=== PATIENT | female | born 1970 | race Caucasian/White ===

== ENCOUNTER → 2017-08-24 10:10 | Outpatient (CLI) | payer MEDICAID, SELFPAY ==
[2017-08-24 13:14] LABS: Protein, Urine (Random) 79.7 mg/dL (<11.9); Protein:Creat Ratio 367 mg/g CRE (0-200)
== END ==
PROVIDERS: Family Provider Family Medicine; PCP Family Medicine; Visit Provider Internal Medicine Nephrology
DX: N39.0 Urinary tract infection, site not specified (principal)
CPT/HCPCS: 36415; 82570; 84156; 87086; 87088; 87186

== ENCOUNTER → 2017-10-17 09:04 | Outpatient (CLI) | payer MEDICAID, SELFPAY ==
--- NOTE | 2017-10-17 10:15 | BRBX_PTH ---
PATIENT: BIANKA GARRISON LOC: [facility] U#:[id number] AGE/SX: 54/F ROOM: RE10/17/[address]: Dr. Kristy Xiao MD : 1970 BED: DIS: SPEC #: [id number] RECD: 10/17/17 14:00 STATUS: ANTONIO [place] #: [id number] CARMELA: 10/17/17 10:[address]: Kristy Xiao DEPT: SURGICAL PATHOLOGY RECD BY: Miles Jamil ENTERED: 10/17/17 14:01 SP TYPE: BREAST BX OTHR DR: MD Dr. El Groves MD Tissues: Left breast, NOS Procedures: Surgery Specimen Level IV HEADER OPERATION: Left breast, stereotactic needle core biopsy PRE-OP DIAGNOSIS: Calcification left breast, upper outer TISSUE SUBMITTED: Left breast core tissue ISCHEMIC TIME: 1.5 minutes FIXATION TIME: 8 hours 45 minutes MICROSCOPIC DIAGNOSIS Left breast, upper outer calcification, stereotactic needle core biopsy: Focal adenosis and mild intraductal hyperplasia without atypia. Focal microcalcifications. Negative for malignancy. JADIEL:kolton 10/18/17 COMMENT Correlation with clinical, radiologic findings and appropriate follow up are necessary. MICROSCOPIC DESCRIPTION Slides are reviewed. GROSS DESCRIPTION Received is one container labeled with the patient's name and not further designated. The specimen consists of multiple fragments of aquino-yellow fibroadipose tissue that in aggregate measure 5 x 3 x 0.3 cm. The entire specimen is submitted in two cassettes. / JADIEL:kolton 10/17/17 TC:5 CPT: 27628
--- NOTE | 2017-11-04 07:38 | PCM.OPRPT ---
Report of Operation Date of Procedure: 10/17/17 Pre-Operative Diagnosis: abnormal left breast mammograms with findings of abnormal calcifications Post-Operative Diagnosis: same, pathology pending Surgery/Procedure Performed:: left stereotactic breast biopsy Description of Surgical Findings:: abnormal calcifications on left breast mammograms - upper outer quadrant Type of Anesthesia:: Local - 1% xylocaine Specimen's removed: left breast tissue Estimated Blood Loss (mL): minimal Fluids Replaced: none Description of Procedure: After informed consent was given, the patient was brought into the breast biopsy suite. Appropriate time out protocol was followed. She was then placed in the prone position on the stereotactic biopsy table. The patients left breast was then placed at the opening at the head of the table. A sap grc security compression mammogram was then obtained in the CC view. The suspicious radiological lesion was then identified. Stereo pictures of the lesion were then taken for XYZ coordinates. The Mammotome biopsy stylus was then positioned where it would be entering into the patients breast. The skin at this site was then cleansed with a surgical skin preparation. The skin and subcutaneous tissues at this site were then infiltrated with 1% xylocaine. A small skin incision was made with an 11 blade scalpel. The biopsy stylus was then positioned into the patients breast at the proper coordinates of depth. Using the Mammotome vacuum-assist device, several core samples of breast tissue were obtained. A specimen mammogram was the obtained and revealed that the calcifications were within the specimen. A hemostatic marker clip was then placed into the biopsy cavity and a sap grc security film revealed that it was properly deployed. The patient was then placed in the supine position and pressure was applied to the breast until no active bleeding was noted. Steristrips were applied to reapproximate the skin. A unilateral mammogram in the CC and MLO view were then taken which revealed that the marker clip was in the same area as the previous suspicious lesion. The patient tolerated the procedure well and was discharged from the breast biopsy suite in good condition. - Complications none noted
--- NOTE | 2017-11-04 07:42 | OP.PCM_ITS ---
Report of Operation Date of Procedure: 10/17/17 Pre-Operative Diagnosis: abnormal left breast mammograms with findings of abnormal calcifications Post-Operative Diagnosis: same, pathology pending Surgery/Procedure Performed:: left stereotactic breast biopsy Description of Surgical Findings:: abnormal calcifications on left breast mammograms - upper outer quadrant Type of Anesthesia:: Local - 1% xylocaine Specimen's removed: left breast tissue Estimated Blood Loss (mL): minimal Fluids Replaced: none Description of Procedure: After informed consent was given, the patient was brought into the breast biopsy suite. Appropriate time out protocol was followed. She was then placed in the prone position on the stereotactic biopsy table. The patient?s left breast was then placed at the opening at the head of the table. A scouts compression mammogram was then obtained in the CC view. The suspicious radiological lesion was then identified. Stereo pictures of the lesion were then taken for XYZ coordinates. The Mammotome biopsy stylus was then positioned where it would be entering into the patient?s breast. The skin at this site was then cleansed with a surgical skin preparation. The skin and subcutaneous tissues at this site were then infiltrated with 1% xylocaine. A small skin incision was made with an 11 blade scalpel. The biopsy stylus was then positioned into the patient?s breast at the proper coordinates of depth. Using the Mammotome vacuum-assist device, several core samples of breast tissue were obtained. A specimen mammogram was the obtained and revealed that the calcifications were within the specimen. A hemostatic marker clip was then placed into the biopsy cavity and a scouts film revealed that it was properly deployed. The patient was then placed in the supine position and pressure was applied to the breast until no active bleeding was noted. Steristrips were applied to reapproximate the skin. A unilateral mammogram in the CC and MLO view were then taken which revealed that the marker clip was in the same area as the previous suspicious lesion. The patient tolerated the procedure well and was discharged from the breast biopsy suite in good condition. - Complications none noted
== END ==
PROVIDERS: Family Provider Family Medicine; PCP Family Medicine; Visit Provider Surgery
DX: R92.0 Mammographic microcalcification found on diagnostic imaging of breast (principal); N60.22 Fibroadenosis of left breast; J44.9 Chronic obstructive pulmonary disease, unspecified; F32.9 Major depressive disorder, single episode, unspecified; K21.9 Gastro-esophageal reflux disease without esophagitis; G47.33 Obstructive sleep apnea (adult) (pediatric); E11.9 Type 2 diabetes mellitus without complications; E55.9 Vitamin D deficiency, unspecified; Z87.891 Personal history of nicotine dependence
CPT/HCPCS: 19081; 88305; J7050; A4648

== ENCOUNTER 2017-11-23 14:00 | Observation (INO) | payer MEDICAID, SELFPAY ==
--- NOTE | 2017-11-22 | MISC_PTH ---
PATIENT: BIANKA GARRISON LOC: [facility] U#:[id number] AGE/SX: 47/F ROOM: [facility] RE11/23/[address]: Dr. Rex Mckeon MD : 1970 BED: 1 DIS: 11/24/2017 SPEC #: [id number] RECD: 11/22/17 11:41 STATUS: ANTONIO RE[place] #: [id number] CARMELA: 11/22/17 00:[address]: Rex Mckeon DEPT: SURGICAL PATHOLOGY RECD BY: Miles Jamil ENTERED: 11/24/17 11:42 SP TYPE: MISC MARIYA DR: Dr. Malachi Bello MD Tissues: PANNUS Procedures: Surgery Specimen Level III HEADER OPERATION: Abdominal panniculectomy; repair of ventral hernia PRE-OP DIAGNOSIS: Abdominal panniculus with panniculitis intertrigo, ventral hernia TISSUE SUBMITTED: Abdominal panniculus MICROSCOPIC DIAGNOSIS Abdominal panniculus, panniculectomy: Skin with underlying adipose tissue with focal mild chronic inflammation and hyperkeratosis, clinically panniculitis with intertrigo (3200 gm) JADIEL:kolton 11/25/17 MICROSCOPIC DESCRIPTION Slides are reviewed. GROSS DESCRIPTION Received in fixative is one container labeled with the patient's name and designated abdominal panniculus. The specimen consists of two pieces of skin with underlying adipose tissue measuring 30 x 21 x 4 cm and 31 x 24 x 5 cm. Also received are two pieces of adipose tissue that in aggregate measure 8 x 5 x 3 cm. Sections do not reveal any mass lesions. [place] Sander sections are submitted in four cassettes. / JADIEL:kolton 11/22/17 TC:3 CPT: 37495
--- NOTE | 2017-11-23 14:00 | DT_ITS ---
This patient was seen during an EMR downtime November 21, 2017 - November 28, 2017. This patient may have a combination of paper and electronic documentation or all paper documentation. All documentation is viewable within the e-chart portion of [employer] for each patient visit.
[2017-11-26 04:45] LABS: Anion Gap 7 (5-15); BUN 14 mg/dL (7-18); BUN/Creat Ratio 20.6 RATIO (10-20); Calcium,Total 8.3 mg/dL (8.5-10.1); Chloride 112 mmol/L (98-107); Creatinine, Serum 0.68 mg/dL (0.55-1.02); EST Glomerular Filtration Rate 98 mL/min (>60); Est Glom Filt Rate - Afr Amer 119 mL/min (>60); Glucose 94 mg/dL (74-106); Hemoglobin A1c 5.9 % (4.2-6.3); Potassium 3.9 mmol/L (3.5-5.1); Sodium Level 144 mmol/L (136-145)
[2017-11-26 07:31] LABS: Anion Gap 9 (5-15); BUN 10 mg/dL (7-18); BUN/Creat Ratio 15.6 RATIO (10-20); Calcium,Total 8.2 mg/dL (8.5-10.1); Chloride 104 mmol/L (98-107); Creatinine, Serum 0.64 mg/dL (0.55-1.02); EST Glomerular Filtration Rate 105 mL/min (>60); Est Glom Filt Rate - Afr Amer 127 mL/min (>60); Glucose 111 mg/dL (74-106); Potassium 3.8 mmol/L (3.5-5.1); Prealbumin 15.3 mg/dL (20.0-40.0); Sodium Level 141 mmol/L (136-145)
[2017-11-26 10:42] LABS: Hematocrit 28.2 % (37-47); Hemoglobin 12.9 g/dl (12.0-15.0); Mean Corp Hgb Conc 33.8 g/gl (32-36); Mean Corpuscular Hgb 27.6 pg (27.0-32.0); Mean Corpuscular Volume 81.8 fL (81-99); Mean Platelet Vol. 10.3 fl (6.2-12.0); Platelet Count 250 K/mm3 (150-450); RBC Distribution Width CV 13.7 % (11.6-14.6); RBC Distribution Width SD 41.1 fl (35.1-43.9); Red Blood Count 4.67 M/mm3 (4.2-5.4); Scan Indicated on CBC? Y/N NO; White Blood Count 13.7 K/mm3 (4.4-11.0)
[2017-11-28 15:14] LABS: Hemoglobin 13.8 g/dl (12.0-15.0); Mean Corp Hgb Conc 33.7 g/gl (32-36); Mean Corpuscular Hgb 27.5 pg (27.0-32.0); Mean Corpuscular Volume 81.8 fL (81-99); Mean Platelet Vol. 10.3 fl (6.2-12.0); Platelet Count 284 K/mm3 (150-450); RBC Distribution Width CV 13.7 % (11.6-14.6); RBC Distribution Width SD 40.2 fl (35.1-43.9); Red Blood Count 5.01 M/mm3 (4.2-5.4); Scan Indicated on CBC? Y/N NO; White Blood Count 7.4 K/mm3 (4.4-11.0)
== END 2017-11-24 12:08 | disposition home or self-care (01) ==
LOC: SDC 16:39 → MS2 16:49
PROVIDERS: Anesthesiology; Admitting Provider Surgery; Family Provider Family Medicine; PCP Family Medicine; Visit Provider Surgery
PROC: 0JB80ZZ Excision of Abdomen Subcutaneous Tissue and Fascia, Open Approach (ICD-10-PCS; CPT 15830; principal; 2017-11-22 07:45)
DX: E65 Localized adiposity (principal); M79.3 Panniculitis, unspecified; L30.4 Erythema intertrigo; K43.9 Ventral hernia without obstruction or gangrene; I10 Essential (primary) hypertension; J44.9 Chronic obstructive pulmonary disease, unspecified; Z87.891 Personal history of nicotine dependence; Z85.528 Personal history of other malignant neoplasm of kidney
CPT/HCPCS: 11005; 11008; 15830; 49568; 36415; 80048; 83036; 84134; 85027; 88304; 96365; 96366; 96375; 96376; 99218; J7120; G0378; G0379; J2405

== ENCOUNTER 2017-12-11 12:47 | Emergency (ER) | payer MEDICAID, SELFPAY ==
[2017-12-11 12:49] VITALS: BP 130/83; PULSE 92; RESP 17; TEMP 37.2; O2SAT 98; BMI 44.4
--- NOTE | 2017-12-11 13:23 | ED.VISSUMM ---
- ER Visit Summary Date of Service: 12/11/17 Chief Complaint: Dressing change History of Present Illness: The patient is a 47 F who presents for dressing change. Patient states the wound VAC on her abdominal wound began coming off last night. Patient called her wound care physician who told her to come to the emergency department and have a wet-to-dry dressing placed. Patient states her wound care nurse will be able to reattach the wound VAC tomorrow. Patient denies any fevers or chills. Patient does admit to some drainage from the wound. Patient denies any nausea or vomiting. Patient states she has also noted some bleeding from the wound. She denies any other symptoms. Physical Examination: Vital signs are stable. Patient is afebrile. Patient is in no acute distress. Abdomen is soft. Bowel sounds are normal. There is no tenderness noted. There is some malodorous drainage noted from the abdominal wound. There is no erythema or warmth. The remaining physical exam is within normal limits. Emergency Department Course and Treatment: The wound VAC was removed. Wet-to-dry dressing was placed. Patient was instructed to follow-up with her wound care physician and nurse as scheduled. Patient understood and was agreeable with the plan. All questions were answered. Disposition: Discharged home Impression: Chronic abdominal wound This note was generated with [employer] dictation software. It may contain incorrect words, spelling, and punctuation that were not noted in review of the chart prior to signing ED Disposition - Plan for ED Patient: Disposition: Home or Assisted Living Chief Complaint: Wound Check Diagnosis: Open abdominal wall wound Instructions: ED Wound Check Post Op No Infec Referrals: Malachi Bello MD [Primary Care Provider] -
--- NOTE | 2017-12-11 13:32 | ED.DCSUM_ITS ---
- ER Visit Summary Date of Service: 12/11/17 Chief Complaint: Dressing change History of Present Illness: The patient is a 47 F who presents for dressing change. Patient states the wound VAC on her abdominal wound began coming off last night. Patient called her wound care physician who told her to come to the emergency department and have a wet-to-dry dressing placed. Patient states her wound care nurse will be able to reattach the wound VAC tomorrow. Patient denies any fevers or chills. Patient does admit to some drainage from the wound. Patient denies any nausea or vomiting. Patient states she has also noted some bleeding from the wound. She denies any other symptoms. Physical Examination: Vital signs are stable. Patient is afebrile. Patient is in no acute distress. Abdomen is soft. Bowel sounds are normal. There is no tenderness noted. There is some malodorous drainage noted from the abdominal wound. There is no erythema or warmth. The remaining physical exam is within normal limits. Emergency Department Course and Treatment: The wound VAC was removed. Wet-to- dry dressing was placed. Patient was instructed to follow-up with her wound care physician and nurse as scheduled. Patient understood and was agreeable with the plan. All questions were answered. Disposition: Discharged home Impression: Chronic abdominal wound This note was generated with [employer] dictation software. It may contain incorrect words, spelling, and punctuation that were not noted in review of the chart prior to signing ED Disposition - Plan for ED Patient: Disposition: Home or Assisted Living Chief Complaint: Wound Check Diagnosis: Open abdominal wall wound Instructions: ED Wound Check Post Op No Infec Referrals: Malachi Bello MD [Primary Care Provider] -
[2017-12-11 13:42] VITALS: PULSE 82; RESP 16; O2SAT 99
== END 2017-12-11 13:52 | disposition home or self-care (01) ==
PROVIDERS: Emergency Provider Emergency Medicine; Family Provider Family Medicine; PCP Family Medicine
DX: S31.109D Unspecified open wound of abdominal wall, unspecified quadrant without penetration into peritoneal cavity, subsequent encounter (principal); E78.00 Pure hypercholesterolemia, unspecified; Z79.51 Long term (current) use of inhaled steroids; Z79.891 Long term (current) use of opiate analgesic; Z79.899 Other long term (current) drug therapy; X58.XXXD Exposure to other specified factors, subsequent encounter
CPT/HCPCS: 99283

== ENCOUNTER 2017-12-19 08:46 | Outpatient (RCR) | payer MEDICAID, SELFPAY ==
[2017-12-19 09:39] VITALS: BP 116/71; PULSE 91; RESP 16; TEMP 36; BMI 41.5
--- NOTE | 2017-12-19 23:47 | PCM.WC.PN ---
Type of Wound Date of Service: 12/19/17 Chief Complaint: Open surgical wound lower anterior abdominal wall. History of Wound: Surgery 11/22/17 - 1. Abdominal panniculectomy. 2. Repair of recurrent ventral hernia. Wound care - Normal saline wet to dry. Had trouble with the VAC. Encourage nutritional supplementation with protein to help the healing process. Today she denies any fever. Her appetite is good. Progress of Wound: Improved. - Physical Exam Vital Signs Temp Pulse Resp BP 96.8 F L 91 16 116/71 12/19/17 09:39 12/19/17 09:39 12/19/17 09:39 12/19/17 09:39 Wound Measurements and Assessment WC - Nurse 1 - General Ulcer Measurement Start: 12/19/17 09:04 Freq: Status: Active Protocol: Activity Type Activity Date Activity User E-Sign Co-Sign Detail Recorded Client Recorded Date Recorded By Document 12/19/17 09:29 [id number] 12/19/17 09:32 CS 12/19/17 09:29 Wound Center Nurse 1 [Ulcer Assessment] #1Abdominal panniculectomy -Combined with other wound No -Current Size (cm) - Length 8 -Current Size (cm) - Width 56.2 -Current Size (cm) - Depth 1.7 -Total Square Cm 449.6 -Date of Last Picture (Recall this 12/19/17 field) -Photo Taken Yes -Epithelialization None Present -Tunneling Yes -Tunneling Position (O'clock) 11 -Tunneling Distance (cm) 1.3 -Exudate Amt Medium (34-66%) -Exudate Type Yellow/Green -Wound Margin Distinct, Outline Attached -Granulation Amt Medium (34-66%) -Granulation Quality [place] Red -Slough/Fibrin Yes -Necrosis Amt Medium (34-66%) -Necrotic Tissue Type Adherent Slough -Structure Exposed None/Limited to Skin Breakdown -Texture (Sherley-wound Skin Appearance) Assessed Scarring -Moisture (Sherley-wound Skin Appearance No Abnormality ) Assessed -Color (Sherley-wound Skin Appearance) No Abnormality Assessed -Temperature (Sherley-wound Skin No Abnormality Appearance) (Pt Warm) -Tenderness on Palpation (Sherley-wound Yes Skin Appearance) -Ulcer Cleansing Wound Cleanser -Foul Odor after Cleansing No -Anesthetic Used 4% Lidocaine Solution WC - Nurse 2 - General Ulcer CM Notes Start: 12/19/17 09:04 Freq: Status: Active Protocol: Activity Type Activity Date Activity User E-Sign Co-Sign Detail Recorded Client Recorded Date Recorded By Document 12/19/17 09:40 [id number] 12/19/17 09:41 12/19/17 09:40 Wound Center Nurse 2 [Procedure/Treatment] -Time 09:40 -Correct Patient Yes -Correct Side, Site, Position Yes -Correct Procedure Yes -Procedure Performed Yes -Type of Procedure Debridement -Clinical Debridement Subcutaneous -Post Debridement Size (cm) - Length 8.1 -Post Debridement Size (cm) - Width 56.2 -Post Debridement Size (cm) - Depth 1.8 -Total Square Cm 455.22 -Wound/Ulcer Outcome Not Healed -Ulcer Cleansing Rinsed/ Irrigated with Saline -Foul Odor after Cleansing No -Bioengineered Tissue No -Bleeding Controlled with Pressure -Treatment Response Procedure Tolerated Well [See Physician Procedure note for Specifics] Pain Scale: 0-10 Numeric [Pain] -Is Patient Pain Free? Yes Debridement Note Post-Debridement Measurements/Treatment - Nurse 2 - General Ulcer CM Notes Start: 12/19/17 09:04 Freq: Status: Active Protocol: Activity Type Activity Date Activity User E-Sign Co-Sign Detail Recorded Client Recorded Date Recorded By Document 12/19/17 09:40 [id number] 12/19/17 09:41 12/19/17 09:40 Wound Center Nurse 2 #1Abdominal panniculectomy -Time 09:40 -Correct Patient Yes -Correct Side, Site, Position Yes -Correct Procedure Yes -Procedure Performed Yes -Type of Procedure Debridement -Clinical Debridement Subcutaneous -Post Debridement Size (cm) - Length 8.1 -Post Debridement Size (cm) - Width 56.2 -Post Debridement Size (cm) - Depth 1.8 -Total Square Cm 455.22 -Wound/Ulcer Outcome Not Healed -Ulcer Cleansing Rinsed/ Irrigated with Saline -Foul Odor after Cleansing No -Bioengineered Tissue No -Bleeding Controlled with Pressure -Treatment Response Procedure Tolerated Well Pain Scale: 0-10 Numeric Is Patient Pain Free? Yes Wound debrided: #1 Lower anterior abdominal wall. Laterality: Not Applicable Wound Grade/Stage: 3. Type of Debridement: Excisional debridement Anesthesia Used: 4% Lidocaine Solution Depth: Down to and including healthy tissue, in the subcutaneous layer Percentage of wound debrided: 100 Instrument Used: 7mm curette Tissue Removed: subcutaneous tissue. Severity: Fat Layer Exposed Amount of bleeding with debridement: Mild Bleeding Controlled with: Pressure Patient tolerated procedure well Assessment/Plan Assessment: 1. Open surgical wound lower anterior abdominal wall. 2. Abdominal panniculus with panniculitis. 3. Abdominal wall skin crease intertrigo. 4. Recurrent ventral hernia. Plan: Continue normal saline wet to dry dressing changes. She has been having trouble maintaining a seal with the VAC. Will send the VAC back. Discussed with the patient about further operative debridement and secondary wound closure. Will schedule the surgery in the next couple of weeks. Patient was informed of the risks and complications of the procedure including alternatives to surgery. These were discussed with her personally. She voices understanding and wishes to proceed. Surgery will be done under general anesthesia on an outpatient basis. Renewed her Percocet for pain (30 tabs). Followup 3 weeks.
== END 2018-01-17 23:59 ==
LOC: WC 08:46
PROVIDERS: Family Provider Family Medicine; PCP Family Medicine; Visit Provider Surgery
DX: M79.3 Panniculitis, unspecified (principal); K43.2 Incisional hernia without obstruction or gangrene; L30.4 Erythema intertrigo; T81.89XA Other complications of procedures, not elsewhere classified, initial encounter; Y83.9 Surgical procedure, unspecified as the cause of abnormal reaction of the patient, or of later complication, without mention of misadventure at the time of the procedure
CPT/HCPCS: 99213; G0463

== ENCOUNTER 2018-01-03 07:06 | Day surgery (SDC) | payer MEDICAID, SELFPAY ==
--- NOTE | 2018-01-02 18:48 | HP.PCM_ITS ---
History and Physical Date of Admission: 01/03/18 History of Present Illness: 47 year old woman presents with a large abdominal panniculus with associated panniculitis from recent weight loss of about 190 lbs. Her weight went from approximately 446 lbs down to her current weight of 256 lbs. Because of this massive weight loss, she developed redundant skin on her abdominal wall leaving an apron of tissue that overhangs over her pubic area. Therefore, she also complains of abdominal wall skin crease intertrigo for which she uses powders for relief. She denies any nausea, vomiting or bloating. She did have a ventral hernia repair in 2001 that required mesh. She denies any fever. She underwent an abdominal panniculectomy and repair of a recurrent ventral hernia on 11/22/17. Postop wound care was with the VAC. She showed good healing but had issues with the VAC with suction issues and persistent pain. She presents today for further operative debridement and secondary wound closure. Past Medical History: Allergies, seasonal Anemia Arthritis Asthma Back problems Bone fractures UTI Carpal tunnel syndrome Diabetes, Emotional problems: depresson and anxiety since lost her daughter 16 years ago COPD Gallstones Headaches HTN High cholesterol High trig Hives IBS Nueropathy Pneumonia Polycystic ovary GERD benign right breast tumor right axillary hidradenitis recurrent ventral hernia abdominal panniculus with panniculitis abdominal wall skin crease intertrigo kidney cancer Past Surgical History: Gallbladder -2000 [id number] Tubal ligation-1996 ventral hernia repair and mesh-2001 Right breast needle core biopsy 03/06/14 - fibroadenoma/benign phyllodes tumor Lumpectomy, 03/03 excision right axillary hidradenitis - 2009 kidney resection - 2016 abdominal panniculectomy and repair of ventral hernia - 11/22/17 MEDICATIONS Ventolin. Prempro. Losartan-HCTZ. Desyrel. Effexor. Calan. Trileptal. ALLERGIES Fish Containing Products. Morphine. Lisinopril. Family History Summary: Reviewed history Last on 12/08/2015 and no changes required:12/22/2016 Father (biol.) - Has Family History of Arthritis - Entered On: 11/23/2013 Father (biol.) - Has Family History of Asthma - Entered On: 11/23/2013 Son (biol.) - Has Family History of Asthma - Entered On: 11/23/2013 PGM - Has Family History of Other Cancer - ovarian cancer with mets age 56 - Entered On: 11/23/2013 Mother (biol.) - Has Family History of Breast Cancer - early age 40s - Entered On: 11/23/2013 Aunt - Has Family History of Breast Cancer - 3 maternal aunt 3 paternal aunts - Entered On: 11/23/2013 Mother (biol.) - Has Family History of Diabetes - type II - Entered On: 11/23/2013 Father (biol.) - Has Family History of Diabetes - type II - Entered On: 11/23/2013 MGF - Has Family History of Diabetes - Entered On: 11/23/2013 MGM - Has Family History of Diabetes - Entered On: 11/23/2013 Father (biol.) - Has Family History of Heart Disease - CAD, s/p CABG - Entered On: 11/23/2013 Mother (biol.) - Has Family History of Ovarian Cancer - Entered On: 02/03/2015 General Comments - FH: positive for breast cancer. negative for skin cancer. FH Asthma: father, son FH Arthritis FH Cancer: PGM: ovarian cancer with met, at age 55, Maunts x 3 and Paunts x 3 and Mother: breast cancer (mother: at age early 40s, aunts in 50s) denied fhx of colon cancer, FH Diabetes: type II: mother, father, MGF and MGM FH Heart disease: father: CAD, s/p CABG FH High cholesterol FH Hormone problems FH Kidney stones FH Kidney disease FH Liver disease FH Lupus or other autoimmune FH Osteoporosis FH stroke FH Thyroid cancer FH TB FH ulcer disease Father: sepsis at age 58, copd No colon cancer known in family 3 aunts with breast cancer? Social History: Reviewed history from 03/13/2015 and no changes required: Patient is a former smoker. quit smoking 2005 Alcohol Use - no Drug Use - no does not use aspirin. does not use ibuprofen. Passive smoke exposure - yes HIV/High Risk - no Regular Exercise - yes Was in [employer] Unemployed. Smoking History: Patient is a former smoker. Patient has been counseled to quit. Review of Systems General Complains of weight loss. Denies fever and fatigue. had weight loss of about 190 lbs. Eyes Denies eye pain. ENT Complains of nasal congestion. Denies sore throat. CV Complains of chest pain or discomfort. Denies fatigue, lightheadedness, shortness of breath with exertion and palpitations. Resp Complains of cough. . Denies dyspnea and wheezing. . GI Denies nausea, vomiting, diarrhea and constipation. Complains of menorrhagia, abnormal vaginal bleeding and pelvic pain. . Denies blood in urine and urinary frequency. MS Complains of back pain and arthritis. Denies joint pain, stiffness and muscle weakness. Derm Denies suspicious lesions and skin cancer. has abdominal wall skin crease intertrigo. Neuro Complains of headaches. Denies weakness and paresthesias. . Psych Complains of anxiety and depression. Endo Denies excessive urination and excessive thirst. Heme Denies bleeding and abnormal bruising. Allergy Complains of hives or rash and seasonal allergies. Physical Exam General: well developed, well nourished, in no acute distress. Head: normocephalic and atraumatic. Eyes: PERRL/EOM intact, conjunctiva and sclera clear with out nystagmus. Mouth: throat injected and post nasal drip. Neck: no masses, thyromegaly, or abnormal cervical nodes. Lungs: clear bilaterally to auscultation. Heart: non-displaced PMI, chest non-tender; regular rate and rhythm, S1, S2 without murmurs, rubs, or gallops Abdomen: Lower anterior abdominal wall wound from previous panniculectomy. Good granulation tissue is present. No evidence of infection. Tender to palpation. Msk: has lumbar back sof tissue tenderness. No bony tenderness. Pulses: pulses normal in all 4 extremities. Extremities: no clubbing, cyanosis, edema, or deformity noted with normal full range of motion of all joints. Neurologic: no focal deficits, cranial nerves II-XII grossly intact with normal sensation, reflexes, coordination, muscle strength and tone. Skin: no rashes. Cervical Nodes: no significant adenopathy. Axillary Nodes: no axillary adenopathy palpated Inguinal Nodes: no significant adenopathy. Psych: alert and cooperative; normal mood and affect; normal attention span and concentration. Assessment and Plan 1. Nonhealing ulcer lower anterior abdominal wall from previous panniculectomy. 2. Abdominal panniculus with panniculitis. 3. Recent massive weight loss. 4. Obesity. 5. Abdominal wall skin crease intertrigo. 6. Former smoker. Patient h as persistent pain with her abdominal wall healing ulcer. The VAC was stopped because of suction issues and pain. She is currently on Silver dressing changes. Recommended to the patient to proceed with further operative debridement and complex secondary wound closure. Will send tissue to Pathology for analysis and to Microbiology for culture. Will have drains in for several days and have an abdominal binder. Will place a VAC over the incision to help with drainage during healing. Patient wants to proceed with wound closure. Patient was informed of the risks and complications of the procedure including alternatives to surgery. These were discussed with the patient personally. Patient voices understanding and wishes to proceed. Some of the risks and complications were included in a form from the [place] [employer]. Surgery will be done under general anesthesia on an outpatient basis.
[2018-01-03] VITALS (9 sets, daily range): BP systolic 99–125; BP diastolic 58–85; PULSE 74–88; RESP 15–18; TEMP 36.4–36.6; O2SAT 93–100; BMI 43.2
--- NOTE | 2018-01-03 08:00 | UL_PTH ---
PATIENT: BIANKA GARRISON LOC: [facility] [place][id number] AGE/SX: 47/F ROOM: RE01/03/[address]: Dr. Rex Mckeon MD : 1970 BED: DIS: 01/04/2018 SPEC #: [id number] RECD: 01/03/18 10:51 STATUS: ANTONIO REIrlanda #: [id number] CARMELA: 01/03/18 08:[address]: Rex Mckeon DEPT: SURGICAL PATHOLOGY RECD BY: Travon Andrea ENTERED: 01/03/18 13:37 SP TYPE: ULCER OTHR DR: Dr. Malachi Bello MD Tissues: Abdomen, NOS Procedures: Surgery Specimen Level III HEADER OPERATION: Surgical preparation lower anterior abdominal wall PRE-OP DIAGNOSIS: Nonhealing ulcer lower anterior abdominal wall from previous panniculectomy; abdominal panniculus with panniculitis; recent mass weight loss; obesity; abdominal wall skin crease intertrigo TISSUE SUBMITTED: Lower anterior abdominal wall nonhealing ulcer MICROSCOPIC DIAGNOSIS Lower anterior abdominal wall nonhealing ulcer: Pieces of skin with underlying tissue with ulceration, acute and chronic inflammation, granulation tissue reaction, fat necrosis and foreign body giant cell reaction. JADIEL:kolton 01/04/18 MICROSCOPIC DESCRIPTION Slides are reviewed. GROSS DESCRIPTION Received in fixative is one container labeled with the patient's name and designated left anterior abdominal wall. The specimen consists of ten irregular fragments of aquino-yellow fibrofatty tissue ranging in size from 2 cm to 38 cm in greatest dimension. The largest fragment consists of skin and soft tissue with a centrally situated ulcer. Serial sections do not reveal mass lesions. Wafer Cleaner sections are submitted in three cassettes. / AM:kolton 01/03/18 TC:2 CPT: 96214
[2018-01-03 08:06] LABS: Bedside Glucose 90 mg/dL (70-110)
[2018-01-03] MEDS: Cefazolin 2 GM in 0.9% Normal Saline 100 ML IV (08:14)
--- NOTE | 2018-01-03 10:20 | OP.PN_ITS ---
Immediate Post-Op Note Date of Procedure: 01/03/18 Primary Surgeon/Physician: Rex Mckeon associate professor of music: Dori Lopez. associate professor of music: Liliana Wallace. Pre-Operative Diagnosis: 1. Nonhealing ulcer lower anterior abdominal wall from previous panniculectomy. 2. Abdominal panniculus with panniculitis. 3. Recent massive weight loss. 4. Obesity. 5. Abdominal wall skin crease intertrigo. 6. Former smoker. Post-Operative Diagnosis: Same. Surgery/Procedure Performed:: Surgical preparation lower anterior abdominal wall with excisional debridement nonhealing ulcer and complex secondary wound closure (72 cm). Description of Surgical Findings:: 47 year old woman presents with a large abdominal panniculus with associated panniculitis from recent weight loss of about 190 lbs. Her weight went from approximately 446 lbs down to her current weight of 256 lbs. Because of this massive weight loss, she developed redundant skin on her abdominal wall leaving an apron of tissue that overhangs over her pubic area. Therefore, she also complains of abdominal wall skin crease intertrigo for which she uses powders for relief. She denies any nausea, vomiting or bloating. She did have a ventral hernia repair in 2001 that required mesh. She denies any fever. She underwent an abdominal panniculectomy and repair of a recurrent ventral hernia on 11/22/17. Postop wound care was with the VAC. She showed good healing but had issues with the VAC with suction issues and persistent pain. She presents today for further operative debridement and secondary wound closure. Today the patient underwent surgical preparation lower anterior abdominal wall with excisional debridement nonhealing ulcer and complex secondary wound closure (72 cm). I used Roxy absorbable hemostat, (I used 2 vials). Reference Number - [id number]. Lot Number - [id number]. Expiration - October 15, 2022. Estimated Blood Loss: 200 ml. Specimen's removed: Nonhealing ulcer lower anterior abdominal wall to Pathology and Microbiology. Drains: Jarad x 2. Type of Anesthesia:: General - Admit VTE Documentation VTE Present on Admission: No VTE Mechan Device Prophylaxis: SCD's VTE Pharm Prophylaxis ordered?: Yes
--- NOTE | 2018-01-03 11:02 | PCM.DC ---
You will use the following diet at home:: Calorie/Carbohydrate Controlled (specify 1200, 1400, etc) Discharge Activity: - - no heavy lifting. May shower in (days): 14 - when drains are removed. May resume sexual activity in: 10-14 days Weight Bearing Status: Weight bearing as tolerated Lifting Restrictions: 20 lbs. Call your doctor if your incision/area has: Continuous Slow Oozing, Sudden Increased Bleeding, Increased Pain/ Swelling, Increased Redness, Foul Smelling Discharge, Swelling at the incision site Call your doctor if you observe: Fever of 101 or Higher, Coldness, Increased Pain, Shortness of breath, Chest pain, Calf discomfort, Uncontrolled pain Suture Line Care: - - Leave dressing alone. Change Dressing in (Days):: 7 - will change dressing in office. Cleanse incision/area with: Keep Dressing Clean & Dry, - - may get incisions wet in the shower after the drains are removed. Drain: Suction - daniel drain x 2 to bulb suction. empty and record output daily. Allergies/Adverse Reactions: Allergies Fish Containing Products Allergy (Verified 01/02/18 11:13) Shortness of breath morphine Allergy (Verified 01/02/18 11:13) Shortness of breath lisinopril Adverse Reaction (Verified 01/02/18 11:13) Other COUGH Medications to take at Discharge traZODone [Desyrel] 50 mg PO QHS 06/29/17 Albuterol Sulfate [Ventolin Hfa] 1 - 2 puff INHALATION PRN PRN 10/11/17 Losartan/Hydrochlorothiazide [Losartan-Hctz 100-25 mg Tab] 1 each PO DAILY 10/11/17 Oxcarbazepine [Trileptal] 300 mg PO DAILY 10/11/17 Venlafaxine HCl [Effexor] 200 mg PO BID 10/11/17 Verapamil [Calan] 120 mg PO DAILY 10/11/17 Estrogen,Con/M-Progest Acet [Prempro 0.45-1.5 mg Tablet] 1 each PO DAILY 01/02/18 Cefadroxil [Duricef] 500 mg PO BID #28 cap 01/03/18 Diazepam [Valium] 5 mg PO 4X/DAY PRN PRN #30 tab 01/03/18 Docusate Sodium [Colace] 100 mg PO BID #60 cap 01/03/18 Oxycodone HCl/Acetaminophen [Percocet 5-325] 1 - 2 tab PO 4X/DAY PRN PRN 7 Days #50 tab 01/03/18 proMETHazine tablet [Phenergan tablet] 25 mg PO 4X/DAY PRN PRN #30 tab 01/03/18 The following prescriptions were given: Diazepam [Valium] 5 mg PO 4X/DAY PRN PRN #30 tab PRN Reason: Spasms Oxycodone HCl/Acetaminophen [Percocet 5-325] 1 - 2 tab PO 4X/DAY PRN PRN 7 Days #50 tab PRN Reason: Pain proMETHazine tablet [Phenergan tablet] 25 mg PO 4X/DAY PRN PRN #30 tab PRN Reason: Nausea Cefadroxil [Duricef] 500 mg PO BID #28 cap Docusate Sodium [Colace] 100 mg PO BID #60 cap Primary Care Physician: Malachi Bello MD [Primary Care Provider] - Test Results: Test results from this visit will be discussed in further detail at your follow-up appointment, if applicable. Please Follow Up With: Rex Mckeon MD When: one week. call [phone] for appt. Proposed Discharge Date: 01/03/18
--- NOTE | 2018-01-03 11:06 | DCINST_ITS ---
You will use the following diet at home:: Calorie/Carbohydrate Controlled ( specify 1200, 1400, etc) Discharge Activity: - - no heavy lifting. May shower in (days): 14 - when drains are removed. May resume sexual activity in: 10-14 days Weight Bearing Status: Weight bearing as tolerated Lifting Restrictions: 20 lbs. Call your doctor if your incision/area has: Continuous Slow Oozing, Sudden Increased Bleeding, Increased Pain/ Swelling, Increased Redness, Foul Smelling Discharge, Swelling at the incision site Call your doctor if you observe: Fever of 101 or Higher, Coldness, Increased Pain, Shortness of breath, Chest pain, Calf discomfort, Uncontrolled pain Suture Line Care: - - Leave dressing alone. Change Dressing in (Days):: 7 - will change dressing in office. Cleanse incision/area with: Keep Dressing Clean & Dry, - - may get incisions wet in the shower after the drains are removed. Drain: Suction - daniel drain x 2 to bulb suction. empty and record output daily. Allergies/Adverse Reactions: Allergies Fish Containing Products Allergy (Verified 01/02/18 11:13) Shortness of breath morphine Allergy (Verified 01/02/18 11:13) Shortness of breath lisinopril Adverse Reaction (Verified 01/02/18 11:13) Other COUGH Medications to take at Discharge traZODone [Desyrel] 50 mg PO QHS 06/29/17 Albuterol Sulfate [Ventolin Hfa] 1 - 2 puff INHALATION PRN PRN 10/11/17 Losartan/Hydrochlorothiazide [Losartan-Hctz 100-25 mg Tab] 1 each PO DAILY 10/11 Oxcarbazepine [Trileptal] 300 mg PO DAILY 10/11/17 Venlafaxine HCl [Effexor] 200 mg PO BID 10/11/17 Verapamil [Calan] 120 mg PO DAILY 10/11/17 Estrogen,Con/M-Progest Acet [Prempro 0.45-1.5 mg Tablet] 1 each PO DAILY Cefadroxil [Duricef] 500 mg PO BID #28 cap 01/03/18 Diazepam [Valium] 5 mg PO 4X/DAY PRN PRN #30 tab 01/03/18 Docusate Sodium [Colace] 100 mg PO BID #60 cap 01/03/18 Oxycodone HCl/Acetaminophen [Percocet 5-325] 1 - 2 tab PO 4X/DAY PRN PRN 7 Days #50 tab 01/03/18 proMETHazine tablet [Phenergan tablet] 25 mg PO 4X/DAY PRN PRN #30 tab 01/03/18 The following prescriptions were given: Diazepam [Valium] 5 mg PO 4X/DAY PRN PRN #30 tab PRN Reason: Spasms Oxycodone HCl/Acetaminophen [Percocet 5-325] 1 - 2 tab PO 4X/DAY PRN PRN 7 Days #50 tab PRN Reason: Pain proMETHazine tablet [Phenergan tablet] 25 mg PO 4X/DAY PRN PRN #30 tab PRN Reason: Nausea Cefadroxil [Duricef] 500 mg PO BID #28 cap Docusate Sodium [Colace] 100 mg PO BID #60 cap Primary Care Physician: Malachi Bello MD [Primary Care Provider] - Test Results: Test results from this visit will be discussed in further detail at your follow- up appointment, if applicable. Please Follow Up With: Rex Mckeon MD When: one week. call [phone] for appt. Proposed Discharge Date: 01/03/18
[2018-01-03 12:10] LABS: Bedside Glucose 157 mg/dL (70-110)
[2018-01-03] MEDS: oxyCODONE 5 MG Tablet 10 MG PO (12:17)
[2018-01-03] MEDS: HYDROmorphone 1 MG/ML Syringe IV ×3 (13:34→23:17)
[2018-01-03] MEDS: 0.9% NaCl Peripheral Flush Adult/Peds IV (18:13)
[2018-01-03] MEDS: Lactated Ringers 1,000 ML 60 ML IV (18:54)
[2018-01-03] MEDS: Cefazolin 1 GM/50 ML BAG IV (19:43)
--- NOTE | 2018-01-03 20:51 | PCM.OPRPT ---
Report of Operation Date of Procedure: 01/03/18 Pre-Operative Diagnosis: 1. Nonhealing ulcer lower anterior abdominal wall from previous panniculectomy. 2. Abdominal panniculus with panniculitis. 3. Recent massive weight loss. 4. Obesity. 5. Abdominal wall skin crease intertrigo. 6. Former smoker. Post-Operative Diagnosis: Same. Surgery/Procedure Performed:: Surgical preparation lower anterior abdominal wall with excisional debridement nonhealing ulcer and complex secondary wound closure (72 cm). Description of Surgical Findings:: 47 year old woman presents with a large abdominal panniculus with associated panniculitis from recent weight loss of about 190 lbs. Her weight went from approximately 446 lbs down to her current weight of 256 lbs. Because of this massive weight loss, she developed redundant skin on her abdominal wall leaving an apron of tissue that overhangs over her pubic area. Therefore, she also complains of abdominal wall skin crease intertrigo for which she uses powders for relief. She denies any nausea, vomiting or bloating. She did have a ventral hernia repair in 2001 that required mesh. She denies any fever. She underwent an abdominal panniculectomy and repair of a recurrent ventral hernia on 11/22/17. Postop wound care was with the VAC. She showed good healing but had issues with the VAC with suction issues and persistent pain. She presents today for further operative debridement and secondary wound closure. Patient was informed of the risks and complications of the procedure including alternatives to surgery. These were discussed with the patient personally. Patient voices understanding and wishes to proceed. Some of the risks and complications were included in a form from the [employer] [employer]. I used Roxy absorbable hemostat, (I used 2 vials). Reference Number - [id number]. Lot Number - [id number]. Expiration - October 15, 2022. home improvement installer: Dori Lopez. home improvement installer: Liliana Wallace. Type of Anesthesia:: General Specimen's removed: Nonhealing ulcer lower anterior abdominal wall to Pathology and Microbiology. Drains: Jarad x 2. Estimated Blood Loss (mL): 200 ml. Description of Procedure: Patient was taken to OR in supine position and was placed under general anesthesia. Her abdominal wall and pubic area were prepped and draped in the usual fashion. SCD's were placed for DVT prophylaxis. Perioperative antibiotics were given intravenously. Horizontal markings were made around the nonhealing ulceration abdominal wall. Using xylocaine with epinephrine, I infiltrated the markings. After waiting 5 minutes for the anesthetic to take effect, I made horizontal incisions around the nonhealing ulceration. Dissection was carried down to the abdominal wall fascia. No more herniation seen. The small area of granulation tissue centrally was aggressively debrided with a curette. Underneath is the previous hernia repair. Too aggressive of a debridement, may possibly aggravate the hernia repair causing a recurrence. Some of the tissue was sent to Microbiology for culture and the rest of the tissue was sent to Pathology for analysis to rule out carcinoma. Hemostasis was obtained with electrocautery. The wound was irrigated with saline. The length of the wound was 72 cm. I placed two number 15 Jarad drains through separate stab incisions inferiorly. They were secured to the skin with 3-0 Nylon suture. I sprayed Roxy absorbable hemostat into the abdominal wall wound to minimize seroma. I used 2 vials. I then started the complex secondary wound closure with 2-0 Vicryl figure of eight interrupted sutures for the underlying Huy's fascial layer. The deep dermis and subcutaneous tissue was approximated with 2-0 Vicryl and 3-0 Monocryl interrupted sutures. The skin was approximated with 3-0 Monocryl running subcuticular suture. I then secured the incision with a NPWT device over the incision using Prevena from [facility]. Good suction was noted. This was secured with an abdominal wall binder. Patient tolerated the procedure well and was sent to PACU in satisfactory condition. If she is tolerating po analgesia, can be discharged as an outpatient. I anticipate she will need IV analgesia and spend the night as a surgical observation overnight stay and go home tomorrow. She will be sent home on antibiotics and pain medication and Valium for spasm. She will followup in the office in a week for a wound check and to discuss the Pathology report and Microbiology report. Will remove the drains in two weeks. She will wear the abdominal binder for several weeks. Grafts/Implants Used: None. - Complications None. - Admit VTE Documentation VTE Present on Admission: No VTE Mechan Device Prophylaxis: SCD's VTE Pharm Prophylaxis ordered?: Yes Code Visit Surgery Charges CPT - 06269 ICD-10 - L98.492, E65, M79.3, R63.4, E66.01, Z87.891 60668 L98.492, E65, M79.3, R63.4, E66.01, Z87.891
[2018-01-03] MEDS: diazePAM 5 MG Tablet PO (22:32)
[2018-01-03] MEDS: Docusate Sodium 100 MG Capsule PO (22:32)
[2018-01-03] MEDS: traZODone 50 MG Tablet PO (22:32)
[2018-01-04 01:30] VITALS: BP 128/77; PULSE 90; RESP 18; TEMP 36.9; O2SAT 95
[2018-01-04] MEDS: oxyCODONE 5 MG Tablet 10 MG PO ×3 (01:56→14:10)
[2018-01-04] MEDS: Cefazolin 1 GM/50 ML BAG IV ×2 (06:23→14:13)
[2018-01-04] MEDS: Enoxaparin 40 MG/0.4 ML Syringe SC (06:23)
[2018-01-04] MEDS: diazePAM 5 MG Tablet PO (06:31)
[2018-01-04 06:37] LABS: Hematocrit 30.7 % (37-47); Hemoglobin 10.2 g/dl (12.0-15.0); Mean Corp Hgb Conc 33.2 g/gl (32-36); Mean Corpuscular Hgb 27.3 pg (27.0-32.0); Mean Corpuscular Volume 82.3 fL (81-99); Mean Platelet Vol. 9.9 fl (6.2-12.0); Platelet Count 294 K/mm3 (150-450); RBC Distribution Width CV 14.1 % (11.6-14.6); RBC Distribution Width SD 41.3 fl (35.1-43.9); Red Blood Count 3.73 M/mm3 (4.2-5.4); White Blood Count 11.8 K/mm3 (4.4-11.0)
[2018-01-04 06:41] LABS: Scan Indicated on CBC? Y/N NO
[2018-01-04 06:55] LABS: Anion Gap 7 (5-15); BUN 10 mg/dL (7-18); BUN/Creat Ratio 17.1 RATIO (10-20); Calcium,Total 7.9 mg/dL (8.5-10.1); Chloride 106 mmol/L (98-107); Creatinine, Serum 0.59 mg/dL (0.55-1.02); EST Glomerular Filtration Rate 116 mL/min (>60); Est Glom Filt Rate - Afr Amer 141 mL/min (>60); Estimated Creatinine Clearance 87.99 ml/min; Glucose 106 mg/dL (74-106); Potassium 3.2 mmol/L (3.5-5.1); Prealbumin 12.7 mg/dL (20.0-40.0); Sodium Level 143 mmol/L (136-145)
[2018-01-04 08:22] VITALS: BP 121/81; PULSE 88; RESP 16; TEMP 37.1; O2SAT 97
[2018-01-04] MEDS: HYDROmorphone 1 MG/ML Syringe IV (08:38)
[2018-01-04] MEDS: 0.9% NaCl Peripheral Flush Adult/Peds IV (08:38)
[2018-01-04] MEDS: Verapamil 120 MG Tablet PO (09:35)
[2018-01-04] MEDS: Docusate Sodium 100 MG Capsule PO (09:35)
[2018-01-04] MEDS: Losartan Potassium 100 MG Tablet PO (09:36)
[2018-01-04] MEDS: hydroCHLOROthiazide 25 MG Tablet PO (09:36)
[2018-01-04] MEDS: OXcarbazepine 300 MG Tablet PO (09:37)
[2018-01-04] MEDS: Lactated Ringers 1,000 ML 60 ML IV (14:09)
--- NOTE | 2018-01-04 17:51 | PN.SURG_ITS ---
Subjective: Postop #1 Patient resting comfortably. She spent the night because she needed IV analgesia for pain relief after surgery. This morning she is tolerating po analgesia. She is anxious to go home. - Physical Exam General: Alert HEENT: PERRLA, EOMI Oral: Moist Mucosa Neck: Supple Abdomen: Soft, Non-Distended, Tender - tenderness at the lower abdominal incision site., - - VAC dressing in place. Skin: Incision - VAC dressing in place. Minimal drainage in the canister. Neurological: Cranial nerves II-XII grossly intact Psych/Mental Status: Normal Affect, Appropriate Vital Signs Temp Pulse Resp BP Pulse Ox 98.7 F 88 16 121/81 H 97 01/04/18 08:22 01/04/18 08:22 01/04/18 08:22 01/04/18 08:22 01/04/18 08:22 Oxygen Flow Rate (L/min) 2 Oxygen Delivery Method Room Air Weight: 232 lb 12.93 oz Body Mass Index (BMI) 43.2 Finger Stick Blood Glucose 157 Intake and Output for Last 24 Hours 01/02/18 01/03/18 01/04/18 23:59 23:59 23:59 Intake Total 1300 / 1300 1338 / 1338 Output Total 122 / 122 149 / 149 Balance 1178 / 1178 1189 / 1189 Drainage 122 ml yesterday, 149 ml today. Microbiology Past 72 Hours 01/03/18 09:41 Gram Stain - Final Tissue - Abdominal Wound Culture - Preliminary No growth-Final to follow Laboratory Tests Past 24 Hrs 01/04/18 01/04/18 05:50 05:50 WBC 11.8 H RBC 3.73 L Hgb 10.2 L Hct 30.7 L MCV 82.3 MCH 27.3 MCHC 33.2 RDW 14.1 RDW Differential 41.3 Plt Count 294 MPV 9.9 Sodium 143 Potassium 3.2 L Chloride 106 Carbon Dioxide 30.0 Anion Gap 7 BUN 10 Creatinine 0.59 Estim Creat Clear Calc 87.99 Est GFR (MDRD) Af Amer 141 Est GFR (MDRD) Non-Af 116 BUN/Creatinine Ratio 17.1 Glucose 106 Calcium 7.9 L Prealbumin 12.7 L Medical Necessity - Tobacco Use Smoking Status: Former smoker Assessment/Plan All Active Problems (Last Reviewed 01/21/18 @ 16:49 by Nirmal Jopperi, DO) Chronic skin ulcer with fat layer exposed (Acute) Syncope (Acute) ANGELA (acute kidney injury) (Acute) Hypotension (Acute) Hypokalemia (Acute) 1. Nonhealing ulcer lower anterior abdominal wall from previous panniculectomy. 2. Abdominal panniculus with panniculitis. 3. Recent massive weight loss. 4. Obesity. 5. Abdominal wall skin crease intertrigo. 6. Former smoker. 7. s/p surgical preparation lower anterior abdominal wall with excisional debridement nonhealing ulcer and complex secondary wound closure (72 cm). Patient doing much better today as she is tolerating po analgesia. Incisional pain is more controlled. Ambulating well as she is steady on her feet. Discharge home today. Followup office one week. Prealbumin was 12.7. Encourage nutritional supplementation with protein to help the healing process. Wrote script for Cefadroxil until drains come out (28 tabs). Operative culture is negative thus far. Wrote scripts for Percocet for pain (50 tabs) and for Valium for spasm (30 tabs) . Wrote scripts for Phenergan for nausea (30 tabs) and a refill and for Colace for constipation (60 tabs). Will remove drains in the office. Continue abdominal binder.
--- NOTE | 2018-01-04 17:52 | OP.PCM_ITS ---
Report of Operation Date of Procedure: 01/03/18 Pre-Operative Diagnosis: 1. Nonhealing ulcer lower anterior abdominal wall from previous panniculectomy. 2. Abdominal panniculus with panniculitis. 3. Recent massive weight loss. 4. Obesity. 5. Abdominal wall skin crease intertrigo. 6. Former smoker. Post-Operative Diagnosis: Same. Surgery/Procedure Performed:: Surgical preparation lower anterior abdominal wall with excisional debridement nonhealing ulcer and complex secondary wound closure (72 cm). Description of Surgical Findings:: 47 year old woman presents with a large abdominal panniculus with associated panniculitis from recent weight loss of about 190 lbs. Her weight went from approximately 446 lbs down to her current weight of 256 lbs. Because of this massive weight loss, she developed redundant skin on her abdominal wall leaving an apron of tissue that overhangs over her pubic area. Therefore, she also complains of abdominal wall skin crease intertrigo for which she uses powders for relief. She denies any nausea, vomiting or bloating. She did have a ventral hernia repair in 2001 that required mesh. She denies any fever. She underwent an abdominal panniculectomy and repair of a recurrent ventral hernia on 11/22/17. Postop wound care was with the VAC. She showed good healing but had issues with the VAC with suction issues and persistent pain. She presents today for further operative debridement and secondary wound closure. Patient was informed of the risks and complications of the procedure including alternatives to surgery. These were discussed with the patient personally. Patient voices understanding and wishes to proceed. Some of the risks and complications were included in a form from the [employer]. I used Roxy absorbable hemostat, (I used 2 vials). Reference Number - [id number]. Lot Number - [id number]. Expiration - October 15, 2022. hospitality recruiter: Dori Lopez. hospitality recruiter: Liliana Wallace. Type of Anesthesia:: General Specimen's removed: Nonhealing ulcer lower anterior abdominal wall to Pathology and Microbiology. Drains: Jarad x 2. Estimated Blood Loss (mL): 200 ml. Description of Procedure: Patient was taken to OR in supine position and was placed under general anesthesia. Her abdominal wall and pubic area were prepped and draped in the usual fashion. SCD's were placed for DVT prophylaxis. Perioperative antibiotics were given intravenously. Horizontal markings were made around the nonhealing ulceration abdominal wall. Using xylocaine with epinephrine, I infiltrated the markings. After waiting 5 minutes for the anesthetic to take effect, I made horizontal incisions around the nonhealing ulceration. Dissection was carried down to the abdominal wall fascia. No more herniation seen. The small area of granulation tissue centrally was aggressively debrided with a curette. Underneath is the previous hernia repair. Too aggressive of a debridement, may possibly aggravate the hernia repair causing a recurrence. Some of the tissue was sent to Microbiology for culture and the rest of the tissue was sent to Pathology for analysis to rule out carcinoma. Hemostasis was obtained with electrocautery. The wound was irrigated with saline. The length of the wound was 72 cm. I placed two number 15 Jarad drains through separate stab incisions inferiorly. They were secured to the skin with 3-0 Nylon suture. I sprayed Roxy absorbable hemostat into the abdominal wall wound to minimize seroma. I used 2 vials. I then started the complex secondary wound closure with 2-0 Vicryl figure of eight interrupted sutures for the underlying Huy's fascial layer. The deep dermis and subcutaneous tissue was approximated with 2-0 Vicryl and 3-0 Monocryl interrupted sutures. The skin was approximated with 3-0 Monocryl running subcuticular suture. I then secured the incision with a NPWT device over the incision using Prevena from [facility]. Good suction was noted. This was secured with an abdominal wall binder. Patient tolerated the procedure well and was sent to PACU in satisfactory condition. If she is tolerating po analgesia, can be discharged as an outpatient. I anticipate she will need IV analgesia and spend the night as a surgical observation overnight stay and go home tomorrow. She will be sent home on antibiotics and pain medication and Valium for spasm. She will followup in the office in a week for a wound check and to discuss the Pathology report and Microbiology report. Will remove the drains in two weeks. She will wear the abdominal binder for several weeks. Grafts/Implants Used: None. - Complications None. - Admit VTE Documentation VTE Present on Admission: No VTE Mechan Device Prophylaxis: SCD's VTE Pharm Prophylaxis ordered?: Yes Code Visit Surgery Charges CPT - 85458 ICD-10 - L98.492, E65, M79.3, R63.4, E66.01, Z87.891 57790 L98.492, E65, M79.3, R63.4, E66.01, Z87.891
== END 2018-01-04 16:01 | disposition home or self-care (01) ==
LOC: SDC 07:07 → AC 07:08 → MS2 01-04 07:00
PROVIDERS: Family Provider Family Medicine; PCP Family Medicine; Visit Provider Surgery
PROC: (CPT 13160; principal; 2018-01-03 07:45)
DX: L98.492 Non-pressure chronic ulcer of skin of other sites with fat layer exposed (principal); M79.3 Panniculitis, unspecified; E65 Localized adiposity; L30.4 Erythema intertrigo; R63.4 Abnormal weight loss; E66.01 Morbid (severe) obesity due to excess calories; E11.9 Type 2 diabetes mellitus without complications; E78.00 Pure hypercholesterolemia, unspecified; K21.9 Gastro-esophageal reflux disease without esophagitis; Z87.891 Personal history of nicotine dependence; Z85.528 Personal history of other malignant neoplasm of kidney
CPT/HCPCS: 13160; 15002; 36415; 80048; 82962; 84134; 85027; 87070; 87075; 87077; 87102; 87186; 87205; 87206; 88304; J7120; A4216; J2405

== ENCOUNTER 2018-01-15 21:05 | Emergency (ER) | payer MEDICAID, SELFPAY ==
[2018-01-15 21:07] VITALS: BP 134/82; PULSE 100; RESP 18; TEMP 36.9; O2SAT 97; BMI 42.2
--- NOTE | 2018-01-15 21:40 | ED.DEP ---
ED Disposition - Plan for ED Patient: Chief Complaint: Wound Check Instructions: ED Wound Check Post Op No Infec Referrals: Malachi Bello MD [Primary Care Provider] - Rex Mckeon MD [STAFF PHYSICIAN] -
--- NOTE | 2018-01-15 21:42 | ED.VISSUMM ---
- ER Visit Summary Date of Service: 01/15/18 Chief Complaint: Wound check History of Present Illness: The patient is a 47 F presenting for wound check. Patient had surgery per Dr. Mckeon on January 03. She had 2 drains placed in her abdominal wall. She had one removed last Tuesday. The others was supposed to be removed this . She is concerned that this drain is falling out. It is not draining as usual. She has had no fever or other complaints. Physical Examination: Vitals are stable. Patient is afebrile. Alert no acute distress. HEENT exam is unremarkable. Neck is supple. Lungs are clear and equal bilaterally. Heart is regular rate and rhythm. Abdomen is soft nontender nondistended. No signs of infection. Drain RLQ partially removed Extremities are unremarkable. Skin is warm and dry. No focal neurologic deficit. Remainder of exam is unremarkable. Emergency Department Course and Treatment: Attempted to reach Dr. Mckeon and he is not taking call tonight. The drain is partially removed and sutured in place. There are no surrounding signs of infection. She is advised to call his office first thing in the morning. Advised return to ED for any worsening complaints. Disposition: Discharge home Impression: Wound check This note was generated with [employer] dictation software. It may contain incorrect words, spelling, and punctuation that were not noted in review of the chart prior to signing ED Disposition - Plan for ED Patient: Chief Complaint: Wound Check Instructions: ED Wound Check Post Op No Infec Referrals: Rex Mckeon MD [STAFF PHYSICIAN] - Malachi Bello MD [Primary Care Provider] -
[2018-01-15 22:02] VITALS: BP 125/76; PULSE 75; RESP 17; O2SAT 99
== END 2018-01-15 22:02 | disposition home or self-care (01) ==
LOC: ED 21:27
PROVIDERS: Emergency Provider Emergency Medicine; Family Provider Family Medicine; PCP Family Medicine
DX: Z48.00 Encounter for change or removal of nonsurgical wound dressing (principal)
CPT/HCPCS: 99282

== ENCOUNTER 2018-01-21 15:10 | Observation (INO) | payer MEDICAID, SELFPAY ==
[2018-01-21] VITALS (9 sets, daily range): BP systolic 71–95; BP diastolic 48–59; PULSE 68–92; RESP 12–18; TEMP 36.3–36.6; O2SAT 95–100; BMI 42.7; BMI 43.2
--- NOTE | 2018-01-21 15:19 | EKG12_ITS ---
Test Reason : Blood Pressure : / mmHG Vent. Rate : 089 BPM Atrial Rate : 089 BPM P-R Int : 164 ms QRS Dur : 098 ms QT Int : 414 ms P-R-T Axes : 043 033 016 degrees QTc Int : 503 ms Normal sinus rhythm Nonspecific T wave abnormality Prolonged QT Abnormal ECG Confirmed by EMILIE SHAH, EMPERATRZI ([id number]), writer editor FLORENCIO WHIPPLE ([id number]) on 01/23/2018 1:32:50 PM Referred By: DUNG Confirmed By:EMPERATRIZ PHAN MD
--- NOTE | 2018-01-21 15:27 | RAD_ITS ---
STUDY: X-RAY CHEST REASON FOR EXAM: Female, 47 years old. Syncope. TECHNIQUE: Single AP portable view of the chest. COMPARISON: 02/08/2017. FINDINGS: Incomplete expansion of the lungs. Mild atelectasis or infiltrate in the medial right lung base. No effusions. Normal size heart. Normal mediastinum and melissa. Normal visualized pulmonary arteries. Normal visualized aortic arch and descending thoracic aorta. Normal visualized thoracic spine. Normal visualized ribs, clavicles, and shoulders. There is no demonstrated abnormality of the visualized soft tissue structures of the upper abdomen. RAD/Chest 1 View (Portable) IMPRESSION: Incomplete expansion of the lungs. Mild atelectasis or infiltrate in the medial right lung base. Electronically Signed: Leon Waters MD at 15:56 EDT , Service support ,
--- NOTE | 2018-01-21 15:27 | ED.VISSUMM ---
- ER Visit Summary Date of Service: 01/21/18 Chief Complaint: [] Near syncope at today History of Present Illness: The patient is a 47 F [] history of hypertension, resection left renal cancer partial nephrectomy about 2 months ago, currently on Cipro postop but no history of UTI, no complications, she woke today feeling fine she was at a busy with those types of activity she was in the heat when she felt very tired as if she Has passed out she informed her family she was basically assisted and brought to the emergency department. She never passed out she never lost consciousness she remembers everything. At no time did she have head neck chest or abdominal pain she simply feels weak and tired and drained from the events of today and the family reports she was in the heat quite a bit She indicates that she has not been ill in any way she is recovered from her surgery she has no history of GA PE or DVT is actually been feeling well her pressure here is about 80 over palp she states she has had very little to eat or drink today she has been normal bowel bladder habits Physical Examination: [] Resting comforting the bed pressure as above she is awake and alert speaking full sentences no neurologic history the head and neck are unremarkable the lungs are clear the heart tones are normal abdomen soft nontender upper lower extremities unremarkable neurologic she is awake moving all 4 she has no specific complaints other than being weak generally Test Results: [] Emergency Department Course and Treatment: [] EKG screening labs IV fluid She is blood pressure and after liter or 2 of fluid is about 95 over palp, her creatinine returned at 1.56 her postop baseline was about 0.9 her lactate returned at 3.0 she has been unable to urinate she is taking liquids here in the department her chest x-ray shows atelectasis versus possible right middle lobe infiltrate but the patient has no fever no cough no chest pain or shortness of breath Despite almost 2 L of fluid she is taking p.o. by mouth she remains a blood pressure about 95 over palp she is awake and alert there is no signs that she will require ICU management given the elevated creatinine her symptoms I spoke with the hospitalist will arrange for admission for further management, at this time there is no obvious infection or source the need for any antibiotics will be determined by the inpatient team Treatment Plan: [] Disposition: [] Admit stable Impression: [] Hypotension, dehydration, acute renal injury, partial left nephrectomy 2 months ago This note was generated with [employer] dictation software. It may contain incorrect words, spelling, and punctuation that were not noted in review of the chart prior to signing ED Disposition - Plan for ED Patient: Chief Complaint: Syncope Referrals: Malachi Bello MD [Primary Care Provider] -
[2018-01-21] MEDS: 0.9% Normal Saline 1,000 ML 1000 ML IV (15:42)
[2018-01-21 15:47] LABS: Absolute Lymphocyte Count 2.22 X10^3/ul (0.83-4.51); Absolute Neutrophil Count 3.6 X10^3/uL (2.0-7.7); Basophil# 0.03 X10^3/uL; Basophil% 0.4 % (0-1); Eosinophil# 0.39 X10^3/uL; Eosinophils% 5.8 % (0-5); Hematocrit 37.5 % (37-47); Hemoglobin 11.9 g/dl (12.0-15.0); Lymphocyte # 2.22 X10^3/ul (4.0); Lymphocyte % 32.9 % (19-41); Mean Corp Hgb Conc 31.7 g/gl (32-36); Mean Corpuscular Hgb 26.6 pg (27.0-32.0); Mean Corpuscular Volume 83.9 fL (81-99); Mean Platelet Vol. 10.4 fl (6.2-12.0); Monocyte# 0.54 X10^3/uL; Neutrophil # 3.55 X10^3/uL (2.7-7.7); Neutrophil % 52.8 % (47-70); Platelet Count 373 K/mm3 (150-450); RBC Distribution Width CV 14.4 % (11.6-14.6); RBC Distribution Width SD 44.3 fl (35.1-43.9); Red Blood Count 4.47 M/mm3 (4.2-5.4); White Blood Count 6.7 K/mm3 (4.4-11.0)
[2018-01-21 15:48] LABS: POSITIVE COUNT NO; POSITIVE DIFFERENTIAL NO; POSITIVE MORPHOLOGY NO
[2018-01-21 16:04] LABS: AST(SGOT) 13 U/L (15-37); Alanine Aminotransfer ALT/SGPT 13 U/L (13-56); Albumin, Serum 3.2 g/dL (3.2-5.0); Alkaline Phosphatase 81 U/L (45-117); Anion Gap 9 (5-15); BUN 16 mg/dL (7-18); BUN/Creat Ratio 10.5 RATIO (10-20); Bilirubin, Direct 0.08 mg/dL (0.00-0.30); Calcium,Total 8.3 mg/dL (8.5-10.1); Chloride 107 mmol/L (98-107); Creatinine, Serum 1.52 mg/dL (0.55-1.02); EST Glomerular Filtration Rate 39 mL/min (>60); Est Glom Filt Rate - Afr Amer 47 mL/min (>60); Estimated Creatinine Clearance 34.16 ml/min; Globulin 3.8 g/dL (2.2-4.2); Glucose 182 mg/dL (74-106); Potassium 3.3 mmol/L (3.5-5.1); Sodium Level 140 mmol/L (136-145)
--- NOTE | 2018-01-21 16:13 | ED.RN ---
lactic3.0 called from the lab. dr starred aware
[2018-01-21] MEDS: 0.9% Normal Saline 1,000 ML 999 ML IV (16:16)
--- NOTE | 2018-01-21 16:46 | PCM.HP.STD ---
Problem List (1) Syncope Status: Acute (2) ANGELA (acute kidney injury) Status: Acute (3) Hypotension Status: Acute (4) Hypokalemia Status: Acute History of Present Illness Date of Admission: 01/21/18 Chief Complaint: syncope The patient is a 47 year old F who was in her normal state of health today. Patient states that very short. Patient does not recall the syncopal episode. Patient had. Patient presented to the emergency room 71/48. Patient did receive IV fluids and improved her pressure up to 92/55. Patient states that she has not been any diarrhea and has been eating and drinking properly. Patient in November had an apron surgery extensive weight loss that she experienced while she was in retirement several years back. Patient denies any chest pain, shortness of breath, nausea and vomiting, diarrhea. [] Past Medical History Past Medical History (Chronic Problems): Chronic Problems (Last Updated 09/27/17 @ 10:26 by Kristy Holder) Recurrent ventral hernia (Chronic) Tobacco use (Chronic) Morbid obesity (Chronic) Hyperlipidemia (Chronic) Gastroesophageal reflux disease (Chronic) Type 2 diabetes mellitus (Chronic) Benign essential hypertension (Chronic) Medical History: Medical History (Last Reviewed 01/21/18 @ 16:49 by Nirmal Baltazar DO) Abdominal pain R10.9 Abdominal panniculus, symptomatic E65 Abnormal biopsy of kidney R94.4 05/2017 Achilles tendinitis M76.60 Anemia D64.9 Arthritis M19.90 Asthma J45.909 Asymptomatic varicose veins I83.90 VARICOSE VEINS,LOWER EXTREMITIES Back problem M53.9 Bone fracture T14.8XXA Breast tumor D49.3 BENIGN RIGHT BREAST TUMOR COPD (chronic obstructive pulmonary disease) J44.9 Cancer of kidney C64.9 LEFT KIDNEY Carpal tunnel syndrome G56.00 De Quervain's disease (tenosynovitis) M65.4 Depressed F32.9 DEPRESSION AND ANXIETY SINCE THE LOSS OF HER DAUGHTER IN 1997 Diabetes E11.9 Dysmenorrhea N94.6 Erythema intertrigo L30.4 Excessive weight loss R63.4 Frequent headaches R51 GERD (gastroesophageal reflux disease) K21.9 Gallstones K80.20 Hidradenitis suppurativa of right axilla L73.2 High cholesterol E78.00 High triglycerides E78.1 History of pneumonia Z87.01 Hives L50.9 IBS (irritable bowel syndrome) K58.9 Insomnia G47.00 Left kidney mass N28.89 Nail disorder L60.9 Panic attack F41.0 Polycystic ovary E28.2 Seasonal allergies J30.2 Sleep apnea G47.30 UTI (urinary tract infection) N39.0 HTN (hypertension) I10 Allergies Fish Containing Products Allergy (Verified 01/21/18 15:15) Shortness of breath morphine Allergy (Verified 01/21/18 15:15) Shortness of breath lisinopril Adverse Reaction (Verified 01/21/18 15:15) cough COUGH Home Medications: Ambulatory Orders Medication Instructions Recorded traZODone [Desyrel] 50 mg PO QHS 06/29/17 Albuterol Sulfate [Ventolin Hfa] 1 - 2 puff INHALATION PRN PRN 10/11/17 Losartan/Hydrochlorothiazide 1 each PO DAILY 10/11/17 [Losartan-Hctz 100-25 mg Tab] Oxcarbazepine [Trileptal] 300 mg PO DAILY 10/11/17 Venlafaxine HCl [Effexor] 200 mg PO BID 10/11/17 Verapamil [Calan] 120 mg PO DAILY 10/11/17 Estrogen,Con/M-Progest Acet 1 each PO DAILY 01/02/18 [Prempro 0.45-1.5 mg Tablet] Cefadroxil [Duricef] 500 mg PO BID #28 cap 01/03/18 Diazepam [Valium] 5 mg PO 4X/DAY PRN PRN #30 tab 01/03/18 Docusate Sodium [Colace] 100 mg PO BID #60 cap 01/03/18 Oxycodone HCl/Acetaminophen 1 - 2 tab PO 4X/DAY PRN PRN 7 Days 01/03/18 [Percocet 5-325] #50 tab proMETHazine tablet [Phenergan 25 mg PO 4X/DAY PRN PRN #30 tab 01/03/18 tablet] Surgical History: Surgical History (Last Updated 01/21/18 @ 16:51 by Nirmal Baltazar DO) H/O partial nephrectomy Z90.5 S/P panniculectomy Z98.890 Cancer of kidney C64.9 PARTIAL REMOVAL OF LEFT KIDNEY 2018 History of biopsy Z98.890 RIGHT BREAST NEEDLE CORE BIOPSY 03/06/2014 History of delivery Z98.891 1991 History of cholecystectomy Z90.49 2000 History of lumpectomy of right breast Z98.890 FIBROADENOMA/BENIGN PHYLLODES TUMOR LUMPECTOMY 02/2014 History of neuropathy Z86.69 History of tubal ligation Z98.51 1997 History of ventral hernia repair Z98.890, Z87.19 VENTRAL HERNIA REPAIR AND MESH 2002 Right axillary hidradenitis L73.2 EXCISION RIGHT AXILLARY HIDRADENITIS 2010 Surgical History: cholecystectomy, herniorrhaphy Psychiatric History: No pertinent psych hx Lives: Alone Smoking Status: Former smoker Tobacco Use: Non-smoker Alcohol: None Drugs: None - *Family History Paternal Family History: Family History (Last Reviewed 01/21/18 @ 16:52 by Nirmal Baltazar DO) Father Asthma Arthritis Diabetes Heart disease Sepsis COPD (chronic obstructive pulmonary disease) Mother Breast cancer Diabetes Ovarian cancer Son Asthma Aunt Breast cancer Grandmother Ovarian cancer Grandfather Diabetes Grandmother Diabetes Review of Systems Constitutional: Denies: Anorexia, Chills, Fever Eyes: Denies: Blurred vision, Double vision HEENT: Denies: Head Aches, Sinus Congestion, Sinus Drainage Cardiovascular: Denies: Chest Pain, Palpitations Respiratory: Denies: Cough, Shortness of breath at rest, Sputum production Gastrointestinal: Denies: Abdominal Pain, Nausea, Vomiting Genitourinary: Denies: Dysuria, Frequency Musculoskeletal: Denies: Joint Pain, Joint Tenderness Skin: Denies: Dryness, Jaundice Neurological: Reports: - - dizziness. Denies: Balance problems Psychiatric: Denies: Anxiety, Depression Hematologic/ Lymphatic: Reports: Easy Bruising. Denies: Easy Bleeding, Hx of blood clot Comment: All review of systems are negative except as mentioned in the history of present illness and the other review of systems. VTE Information - Inpt Only VTE Present on Admission: No VTE Mechan Device Prophylaxis: None VTE Pharm Prophylaxis ordered?: Yes Patient Problems: Active and Suspected Problems (Last Updated 09/27/17 @ 10:26 by Kristy Holder) Syncope (Acute) ANGELA (acute kidney injury) (Acute) Hypotension (Acute) Hypokalemia (Acute) - Physical Exam General: Alert, Cooperative, No apparent distress HEENT: Atraumatic, PERRLA, Normocephalic Oral: Moist Mucosa, No Gingival or Mucosal Lesions/ Ulcerations Neck: No Nodes, Thyroid Normal Size and Texture Lungs: Clear to auscultation, Normal air movement, No rhonchi, No wheeze Cardiovascular: Regular rate, Regular Rhythm, Normal S1, Normal S2, No murmurs Abdomen: Bowel Sounds Present, Soft, Non Tender, Non-Distended Extremities: No edema, No Calf Tenderness Skin: No rashes, No breakdown Musculoskeletal: No Tenderness to Palpation of Joints or Extremities, No Muscle Wasting Neurological: Cranial nerves II-XII grossly intact, Neuro grossly intact, Sensory exam intact to light touch and pain Psych/Mental Status: Normal Affect, Appropriate Vital Signs Temp Pulse Resp BP Pulse Ox 36.4 C L 86 16 92/55 L 99 01/21/18 15:11 01/21/18 15:58 01/21/18 15:58 01/21/18 15:58 01/21/18 15:42 Oxygen Delivery Method Room Air Weight: 102.512 kg Body Mass Index (BMI) 42.7 Finger Stick Blood Glucose 157 Laboratory Tests Past 24 Hrs 01/21/18 01/21/18 01/21/18 15:25 15:25 15:29 WBC 6.7 RBC 4.47 Hgb 11.9 L Hct 37.5 MCV 83.9 MCH 26.6 L MCHC 31.7 L RDW 14.4 RDW Differential 44.3 H Plt Count 373 MPV 10.4 Immature Gran % (Auto) 0.100 Neut % (Auto) 52.8 Lymph % (Auto) 32.9 [place] % (Auto) 8.0 Eos % (Auto) 5.8 H Baso % (Auto) 0.4 Absolute Neuts (auto) 3.6 Absolute Lymphs (auto) 2.22 Total Counted Not Reportable Sodium 140 Potassium 3.3 L Chloride 107 Carbon Dioxide 24.0 Anion Gap 9 BUN 16 Creatinine 1.52 H Estim Creat Clear Calc 34.16 Est GFR (MDRD) Af Amer 47 L Est GFR (MDRD) Non-Af 39 L BUN/Creatinine Ratio 10.5 Glucose 182 H Lactic Acid 3.0 H Calcium 8.3 L Total Bilirubin 0.20 Direct Bilirubin 0.08 AST 13 L ALT 13 Alkaline Phosphatase 81 Troponin I < 0.015 Total Protein 7.0 Albumin 3.2 Globulin 3.8 Assessment/Plan All Active Problems (Last Updated 09/27/17 @ 10:26 by Kristy Holder) Syncope (Acute) ANGELA (acute kidney injury) (Acute) Hypotension (Acute) Hypokalemia (Acute) 1. Syncope Suspect vasovagal process from the patient be being dehydrated Patient be monitored in the progressive care unit overnight anyways 2. Acute kidney injury Patient had a normal creatinine in December 18.56 IV fluids and reevaluate in the morning 3. Hypotension I presume this to be related with hypovolemia plus patient's antihypertensives Continue with IV fluids Did mention the patient if her blood pressure does not respond accordingly to IV fluids then we would need to put in a central line pressor agents Hold antihypertensives 4. Hypokalemia Plan is to replace with half-normal saline with 20 mEq of KCl at 150 cc/h Check magnesium level Hold losartan/hydrochlorothiazide 5. Diet-controlled diabetic Just checked her blood sugars for now 6. DVT prophylaxis with Lovenox Code Visit Inpatient E&M: 30726 Init Hosp L3
--- NOTE | 2018-01-21 16:51 | HP.PCM_ITS ---
Problem List (1) Syncope Status: Acute (2) ANGELA (acute kidney injury) Status: Acute (3) Hypotension Status: Acute (4) Hypokalemia Status: Acute History of Present Illness Date of Admission: 01/21/18 Chief Complaint: syncope The patient is a 47 year old F who was in her normal state of health today. Patient states that very short. Patient does not recall the syncopal episode. Patient had. Patient presented to the emergency room 71/48. Patient did receive IV fluids and improved her pressure up to 92/55. Patient states that she has not been any diarrhea and has been eating and drinking properly. Patient in November had an apron surgery extensive weight loss that she experienced while she was in [facility] several years back. Patient denies any chest pain, shortness of breath, nausea and vomiting, diarrhea. [] Past Medical History Past Medical History (Chronic Problems): Chronic Problems (Last Updated 09/27/17 @ 10:26 by Kristy Holder) Recurrent ventral hernia (Chronic) Tobacco use (Chronic) Morbid obesity (Chronic) Hyperlipidemia (Chronic) Gastroesophageal reflux disease (Chronic) Type 2 diabetes mellitus (Chronic) Benign essential hypertension (Chronic) Medical History: Medical History (Last Reviewed 01/21/18 @ 16:49 by Nirmal Baltazar DO) Abdominal pain R10.9 Abdominal panniculus, symptomatic E65 Abnormal biopsy of kidney R94.4 05/2017 Achilles tendinitis M76.60 Anemia D64.9 Arthritis M19.90 Asthma J45.909 Asymptomatic varicose veins I83.90 VARICOSE VEINS,LOWER EXTREMITIES Back problem M53.9 Bone fracture T14.8XXA Breast tumor D49.3 BENIGN RIGHT BREAST TUMOR COPD (chronic obstructive pulmonary disease) J44.9 Cancer of kidney C64.9 LEFT KIDNEY Carpal tunnel syndrome G56.00 De Quervain's disease (tenosynovitis) M65.4 Depressed F32.9 DEPRESSION AND ANXIETY SINCE THE LOSS OF HER DAUGHTER IN 1997 Diabetes E11.9 Dysmenorrhea N94.6 Erythema intertrigo L30.4 Excessive weight loss R63.4 Frequent headaches R51 GERD (gastroesophageal reflux disease) K21.9 Gallstones K80.20 Hidradenitis suppurativa of right axilla L73.2 High cholesterol E78.00 High triglycerides E78.1 History of pneumonia Z87.01 Hives L50.9 IBS (irritable bowel syndrome) K58.9 Insomnia G47.00 Left kidney mass N28.89 Nail disorder L60.9 Panic attack F41.0 Polycystic ovary E28.2 Seasonal allergies J30.2 Sleep apnea G47.30 UTI (urinary tract infection) N39.0 HTN (hypertension) I10 Allergies Fish Containing Products Allergy (Verified 01/21/18 15:15) Shortness of breath morphine Allergy (Verified 01/21/18 15:15) Shortness of breath lisinopril Adverse Reaction (Verified 01/21/18 15:15) cough COUGH Home Medications: Ambulatory Orders Medication Instructions Recorded traZODone [Desyrel] 50 mg PO QHS 06/29/17 Albuterol Sulfate [Ventolin Hfa] 1 - 2 puff INHALATION PRN PRN 10/11/17 Losartan/Hydrochlorothiazide 1 each PO DAILY 10/11/17 [Losartan-Hctz 100-25 mg Tab] Oxcarbazepine [Trileptal] 300 mg PO DAILY 10/11/17 Venlafaxine HCl [Effexor] 200 mg PO BID 10/11/17 Verapamil [Calan] 120 mg PO DAILY 10/11/17 Estrogen,Con/M-Progest Acet 1 each PO DAILY 01/02/18 [Prempro 0.45-1.5 mg Tablet] Cefadroxil [Duricef] 500 mg PO BID #28 cap 01/03/18 Diazepam [Valium] 5 mg PO 4X/DAY PRN PRN #30 tab 01/03/18 Docusate Sodium [Colace] 100 mg PO BID #60 cap 01/03/18 Oxycodone HCl/Acetaminophen 1 - 2 tab PO 4X/DAY PRN PRN 7 Days 01/03/18 [Percocet 5-325] #50 tab proMETHazine tablet [Phenergan 25 mg PO 4X/DAY PRN PRN #30 tab 01/03/18 tablet] Surgical History: Surgical History (Last Updated 01/21/18 @ 16:51 by Nirmal Baltazar DO) H/O partial nephrectomy Z90.5 S/P panniculectomy Z98.890 Cancer of kidney C64.9 PARTIAL REMOVAL OF LEFT KIDNEY 2018 History of biopsy Z98.890 RIGHT BREAST NEEDLE CORE BIOPSY 03/06/2014 History of delivery Z98.891 1991 History of cholecystectomy Z90.49 2000 History of lumpectomy of right breast Z98.890 FIBROADENOMA/BENIGN PHYLLODES TUMOR LUMPECTOMY 02/2014 History of neuropathy Z86.69 History of tubal ligation Z98.51 1997 History of ventral hernia repair Z98.890, Z87.19 VENTRAL HERNIA REPAIR AND MESH 2002 Right axillary hidradenitis L73.2 EXCISION RIGHT AXILLARY HIDRADENITIS 2010 Surgical History: cholecystectomy, herniorrhaphy Psychiatric History: No pertinent psych hx Lives: Alone Smoking Status: Former smoker Tobacco Use: Non-smoker Alcohol: None Drugs: None - *Family History Paternal Family History: Family History (Last Reviewed 01/21/18 @ 16:52 by Nirmal Baltazar DO) Father Asthma Arthritis Diabetes Heart disease Sepsis COPD (chronic obstructive pulmonary disease) Mother Breast cancer Diabetes Ovarian cancer Son Asthma Aunt Breast cancer Grandmother Ovarian cancer Grandfather Diabetes Grandmother Diabetes Review of Systems Constitutional: Denies: Anorexia, Chills, Fever Eyes: Denies: Blurred vision, Double vision HEENT: Denies: Head Aches, Sinus Congestion, Sinus Drainage Cardiovascular: Denies: Chest Pain, Palpitations Respiratory: Denies: Cough, Shortness of breath at rest, Sputum production Gastrointestinal: Denies: Abdominal Pain, Nausea, Vomiting Genitourinary: Denies: Dysuria, Frequency Musculoskeletal: Denies: Joint Pain, Joint Tenderness Skin: Denies: Dryness, Jaundice Neurological: Reports: - - dizziness. Denies: Balance problems Psychiatric: Denies: Anxiety, Depression Hematologic/ Lymphatic: Reports: Easy Bruising. Denies: Easy Bleeding, Hx of blood clot Comment: All review of systems are negative except as mentioned in the history of present illness and the other review of systems. VTE Information - Inpt Only VTE Present on Admission: No VTE Mechan Device Prophylaxis: None VTE Pharm Prophylaxis ordered?: Yes Patient Problems: Active and Suspected Problems (Last Updated 09/27/17 @ 10:26 by Kristy Holder) Syncope (Acute) ANGELA (acute kidney injury) (Acute) Hypotension (Acute) Hypokalemia (Acute) - Physical Exam General: Alert, Cooperative, No apparent distress HEENT: Atraumatic, PERRLA, Normocephalic Oral: Moist Mucosa, No Gingival or Mucosal Lesions/ Ulcerations Neck: No Nodes, Thyroid Normal Size and Texture Lungs: Clear to auscultation, Normal air movement, No rhonchi, No wheeze Cardiovascular: Regular rate, Regular Rhythm, Normal S1, Normal S2, No murmurs Abdomen: Bowel Sounds Present, Soft, Non Tender, Non-Distended Extremities: No edema, No Calf Tenderness Skin: No rashes, No breakdown Musculoskeletal: No Tenderness to Palpation of Joints or Extremities, No Muscle Wasting Neurological: Cranial nerves II-XII grossly intact, Neuro grossly intact, Sensory exam intact to light touch and pain Psych/Mental Status: Normal Affect, Appropriate Vital Signs Temp Pulse Resp BP Pulse Ox 36.4 C L 86 16 92/55 L 99 01/21/18 15:11 01/21/18 15:58 01/21/18 15:58 01/21/18 15:58 01/21/18 15:42 Oxygen Delivery Method Room Air Weight: 102.512 kg Body Mass Index (BMI) 42.7 Finger Stick Blood Glucose 157 Laboratory Tests Past 24 Hrs 01/21/18 01/21/18 01/21/18 15:25 15:25 15:29 WBC 6.7 RBC 4.47 Hgb 11.9 L Hct 37.5 MCV 83.9 MCH 26.6 L MCHC 31.7 L RDW 14.4 RDW Differential 44.3 H Plt Count 373 MPV 10.4 Immature Gran % (Auto) 0.100 Neut % (Auto) 52.8 Lymph % (Auto) 32.9 [place] % (Auto) 8.0 Eos % (Auto) 5.8 H Baso % (Auto) 0.4 Absolute Neuts (auto) 3.6 Absolute Lymphs (auto) 2.22 Total Counted Not Reportable Sodium 140 Potassium 3.3 L Chloride 107 Carbon Dioxide 24.0 Anion Gap 9 BUN 16 Creatinine 1.52 H Estim Creat Clear Calc 34.16 Est GFR (MDRD) Af Amer 47 L Est GFR (MDRD) Non-Af 39 L BUN/Creatinine Ratio 10.5 Glucose 182 H Lactic Acid 3.0 H Calcium 8.3 L Total Bilirubin 0.20 Direct Bilirubin 0.08 AST 13 L ALT 13 Alkaline Phosphatase 81 Troponin I < 0.015 Total Protein 7.0 Albumin 3.2 Globulin 3.8 Assessment/Plan All Active Problems (Last Updated 09/27/17 @ 10:26 by Kristy Holder) Syncope (Acute) ANGELA (acute kidney injury) (Acute) Hypotension (Acute) Hypokalemia (Acute) 1. Syncope * Suspect vasovagal process from the patient be being dehydrated * Patient be monitored in the progressive care unit overnight anyways 2. Acute kidney injury * Patient had a normal creatinine in December 1856 * IV fluids and reevaluate in the morning 3. Hypotension * I presume this to be related with hypovolemia plus patient's antihypertensives * Continue with IV fluids * Did mention the patient if her blood pressure does not respond accordingly to IV fluids then we would need to put in a central line pressor agents * Hold antihypertensives 4. Hypokalemia * Plan is to replace with half-normal saline with 20 mEq of KCl at 150 cc/h * Check magnesium level * Hold losartan/hydrochlorothiazide 5. Diet-controlled diabetic * Just checked her blood sugars for now 6. DVT prophylaxis with Lovenox Code Visit Inpatient E&M: 76139 Init Hosp L3
[2018-01-21 17:24] LABS: Red Blood Cells-Urine 0 SEEN /hpf (0-5)
[2018-01-21 17:32] LABS: Color, Urine Amber (Yellow); Glucose, Dipstick Normal (Normal); Ketone-Dipstick 5 mg/dl (Negative); Leukocyte Esterase-Dipstick 500 /ul (Negative); Nitrite-Dipstick Positive (Negative); Occult Blood-Urine 10 /ul (Negative); Protein-Dipstick 100 mg/dl (Negative); Specific Gravity, Urine 1.025 (1.002-1.030); Urine Clarity Cloudy (Clear); Urine Urobilinogen 1 mg/dl (Normal)
[2018-01-21 17:35] LABS: Urine Bilirubin Dipstick 1 mg/dL (Negative)
[2018-01-21 17:51] LABS: Squamous Epithelial Cells - UA 25-50 SEEN /hpf (5-10); Transitional Epithelial - Ur 0-5 SEEN /hpf (0-5); White Blood Cells 0-5 SEEN /hpf (0-5)
[2018-01-21 17:52] LABS: Bacteria RARE /hpf (None Seen)
[2018-01-21 17:53] LABS: Amorphous Sediment 1+; Mucous, Urine 4+ /hpf (<or=2+)
[2018-01-21 19:44] LABS: Reflex Lactate? Y
[2018-01-21 20:31] LABS: Lactic Acid 1.5 mmol/L (0.4-2.0)
[2018-01-21] MEDS: Docusate Sodium 100 MG Capsule PO (20:58)
[2018-01-21] MEDS: traZODone 50 MG Tablet PO (20:58)
[2018-01-21 22:41] LABS: Bedside Glucose 125 mg/dL (70-110)
[2018-01-22] VITALS: BP 106/58; PULSE 68; RESP 16; TEMP 36.8; O2SAT 96
[2018-01-22 03:00] VITALS: PULSE 71
[2018-01-22 05:41] VITALS: BP 112/52; PULSE 65; RESP 16; TEMP 36.7; O2SAT 95
[2018-01-22 07:00] VITALS: PULSE 74
[2018-01-22 07:14] LABS: Absolute Lymphocyte Count 2.41 X10^3/ul (0.83-4.51); Absolute Neutrophil Count 1.6 X10^3/uL (2.0-7.7); Basophil# 0.03 X10^3/uL; Basophil% 0.6 % (0-1); Eosinophil# 0.38 X10^3/uL; Eosinophils% 7.4 % (0-5); Hematocrit 32.6 % (37-47); Hemoglobin 10.2 g/dl (12.0-15.0); Lymphocyte # 2.41 X10^3/ul (4.0); Mean Corp Hgb Conc 31.3 g/gl (32-36); Mean Corpuscular Hgb 26.5 pg (27.0-32.0); Mean Corpuscular Volume 84.7 fL (81-99); Mean Platelet Vol. 10.2 fl (6.2-12.0); Monocyte# 0.67 X10^3/uL; Monocyte% 13.1 % (0-10); Neutrophil # 1.63 X10^3/uL (2.7-7.7); Neutrophil % 31.7 % (47-70); Platelet Count 305 K/mm3 (150-450); RBC Distribution Width CV 14.7 % (11.6-14.6); RBC Distribution Width SD 45.4 fl (35.1-43.9); Red Blood Count 3.85 M/mm3 (4.2-5.4); White Blood Count 5.1 K/mm3 (4.4-11.0)
[2018-01-22 07:15] LABS: Bedside Glucose 87 mg/dL (70-110)
[2018-01-22 07:17] LABS: ALB/GLOB Ratio 0.8 RATIO (0.9-2.4); AST(SGOT) 15 U/L (15-37); Alanine Aminotransfer ALT/SGPT 16 U/L (13-56); Albumin, Serum 2.6 g/dL (3.2-5.0); Alkaline Phosphatase 77 U/L (45-117); Anion Gap 9 (5-15); BUN 11 mg/dL (7-18); BUN/Creat Ratio 14.6 RATIO (10-20); Calcium,Total 7.9 mg/dL (8.5-10.1); Chloride 109 mmol/L (98-107); Creatinine, Serum 0.75 mg/dL (0.55-1.02); EST Glomerular Filtration Rate 87 mL/min (>60); Est Glom Filt Rate - Afr Amer 105 mL/min (>60); Estimated Creatinine Clearance 69.22 ml/min; Globulin 3.1 g/dL (2.2-4.2); Glucose 90 mg/dL (74-106); Magnesium 2.1 mg/dL (1.6-2.6); Potassium 3.6 mmol/L (3.5-5.1); Protein, Total 5.7 g/dL (6.4-8.2); Sodium Level 144 mmol/L (136-145); Total Bilirubin < 0.10 mg/dL (0.20-1.00)
[2018-01-22 07:18] LABS: POSITIVE COUNT NO; POSITIVE DIFFERENTIAL NO; POSITIVE MORPHOLOGY NO
[2018-01-22 09:37] VITALS: BP 128/72; PULSE 78; RESP 20; TEMP 36.6; O2SAT 95
[2018-01-22] MEDS: Enoxaparin 40 MG/0.4 ML Syringe SC (09:39)
[2018-01-22] MEDS: OXcarbazepine 300 MG Tablet PO (09:39)
[2018-01-22] MEDS: Docusate Sodium 100 MG Capsule PO (09:39)
[2018-01-22] MEDS: Verapamil 120 MG Tablet PO (09:39)
[2018-01-22 11:12] VITALS: PULSE 80
[2018-01-22 11:50] LABS: Bedside Glucose 90 mg/dL (70-110)
--- NOTE | 2018-01-22 12:15 | PCM.DC ---
- Discharge Diagnoses Current Active Problems: Current Active and Chronic Problems (Last Reviewed 01/21/18 @ 16:49 by Nirmal Baltazar DO) Syncope (Acute) ANGELA (acute kidney injury) (Acute) Hypotension (Acute) Hypokalemia (Acute) You will use the following diet at home:: Calorie/Carbohydrate Controlled (specify 1200, 1400, etc) - 1800 Your food should be the consistency of: Regular Your liquids should be the consistency of: Regular/Thin Discharge Activity: Return to Normal Activity Call your doctor if you observe: Fever of 101 or Higher, Shortness of breath, Dizziness, Fainting spells Instructions: What Is Syncope?, Understanding Dizziness, Balance Problems, and Fainting Allergies/Adverse Reactions: Allergies Fish Containing Products Allergy (Verified 01/21/18 15:15) Shortness of breath morphine Allergy (Verified 01/21/18 15:15) Shortness of breath lisinopril Adverse Reaction (Verified 01/21/18 15:15) cough COUGH Medications to take at Discharge traZODone [Desyrel] 50 mg PO QHS 06/29/17 Albuterol Sulfate [Ventolin Hfa] 1 - 2 puff INHALATION PRN PRN 10/11/17 Oxcarbazepine [Trileptal] 300 mg PO DAILY 10/11/17 Venlafaxine HCl [Effexor] 200 mg PO BID 10/11/17 Verapamil [Calan] 120 mg PO DAILY 10/11/17 Estrogen,Con/M-Progest Acet [Prempro 0.45-1.5 mg Tablet] 1 each PO DAILY 01/02/18 Diazepam [Valium] 5 mg PO 4X/DAY PRN PRN #30 tab 01/03/18 Docusate Sodium [Colace] 100 mg PO BID #60 cap 01/03/18 Oxycodone HCl/Acetaminophen [Percocet 5-325] 1 - 2 tab PO 4X/DAY PRN PRN 7 Days #50 tab 01/03/18 proMETHazine tablet [Phenergan tablet] 25 mg PO 4X/DAY PRN PRN #30 tab 01/03/18 Primary Care Physician: Malachi Bello MD [Primary Care Provider] - Within 2 Weeks Test Results: Test results from this visit will be discussed in further detail at your follow-up appointment, if applicable. Proposed Discharge Date: 01/22/18
--- NOTE | 2018-01-22 12:16 | PCM.DC.SUM ---
Discharge Date and Diagnosis - Problem List Patient Problems: Active and Suspected Problems (Last Reviewed 01/21/18 @ 16:49 by Nirmal Baltazar DO) Syncope (Acute) ANGELA (acute kidney injury) (Acute) Hypotension (Acute) Hypokalemia (Acute) Date of Admission: 01/21/18 Date of Discharge: 01/22/18 - Primary Discharge Diagnosis Active and Suspected Problems (Last Reviewed 01/21/18 @ 16:49 by Nirmal Baltazar DO) Syncope (Acute) ANGELA (acute kidney injury) (Acute) Hypotension (Acute) Hypokalemia (Acute) - Secondary Discharge Diagnosis Chronic Problems (Last Reviewed 01/21/18 @ 16:49 by Nirmal Baltazar DO) Benign essential hypertension (Chronic) Type 2 diabetes mellitus (Chronic) Gastroesophageal reflux disease (Chronic) Hyperlipidemia (Chronic) Morbid obesity (Chronic) Tobacco use (Chronic) Recurrent ventral hernia (Chronic) Hospital Course and Treatment Imaging Results: Clinical Impression(s) from Imaging Studies Chest X-Ray 01/21/18 15:27 IMPRESSION: Incomplete expansion of the lungs. Mild atelectasis or infiltrate in the medial right lung base. Electronically Signed: Leon Waters MD at 15:56 EDT , Service support , Operations: None Procedures: None Summary of Care Provided: The patient is a 47 year old F presents with a syncopal episode while at a . Patient presented to the emergency room with a systolic blood pressure in the 70s and reddening of 1.52. Patient was brought in and given IV fluids. Patient blood pressure improved and her creatinine is down to 0.75, which is her baseline. The patient's syncopal episode is likely multifactorial due to dehydration, taking her antihypertensives, the being outside in hot and also being an emotional event likely culminated in her syncopal episode. Patient feels tired but otherwise feels better. Patient did have some lactic acidosis upon arrival to which is likely related to dehydration. I have recommended the patient hold her losartan/HCTZ. I feel patient is medically stable for discharge. Physical exam Vital Signs Height 1.56 m Weight: 105.4 kg Weight in Pounds 232.4 lbs Pulse Ox 95 Temperature 36.6 C Pulse Rate 78 Respiratory Rate 20 Blood Pressure 128/72 Blood Pressure Position Semi-Fowlers Patient is no acute distress and afebrile. Heart is regular rate and rhythm plus S1-S2 without any murmurs gallops or rubs. Lungs are clear to auscultation bilaterally. [] Discharge Diet: 1800 Calorie Control Diet Discharge Activity: Return to Normal Activity Call your doctor if you observe: Fever of 101 or Higher, Shortness of breath, Dizziness, Fainting spells Home Medications: Medications to take at Discharge traZODone [Desyrel] 50 mg PO QHS 06/29/17 Albuterol Sulfate [Ventolin Hfa] 1 - 2 puff INHALATION PRN PRN 10/11/17 Oxcarbazepine [Trileptal] 300 mg PO DAILY 10/11/17 Venlafaxine HCl [Effexor] 200 mg PO BID 10/11/17 Verapamil [Calan] 120 mg PO DAILY 10/11/17 Estrogen,Con/M-Progest Acet [Prempro 0.45-1.5 mg Tablet] 1 each PO DAILY 01/02/18 Diazepam [Valium] 5 mg PO 4X/DAY PRN PRN #30 tab 01/03/18 Docusate Sodium [Colace] 100 mg PO BID #60 cap 01/03/18 Oxycodone HCl/Acetaminophen [Percocet 5-325] 1 - 2 tab PO 4X/DAY PRN PRN 7 Days #50 tab 01/03/18 proMETHazine tablet [Phenergan tablet] 25 mg PO 4X/DAY PRN PRN #30 tab 01/03/18 Primary Care Physician: Malachi Bello MD [Primary Care Provider] - Within 2 Weeks Patient Instructions: What Is Syncope?, Understanding Dizziness, Balance Problems, and Fainting Disposition: Home Minutes spent on discharge:: 28 Patient Condition:: Good Medical Necessity - Tobacco Use Smoking Status: Former smoker Tobacco Use: Non-smoker Meaningful Use Info Meaningful Use Diagnoses (Choose all that apply): None applicable Code Visit OBSV E&M: 42219 Observation care discharge
--- NOTE | 2018-01-22 12:20 | DS.PCM_ITS ---
Discharge Date and Diagnosis - Problem List Patient Problems: Active and Suspected Problems (Last Reviewed 01/21/18 @ 16:49 by Nirmal Baltazar DO) Syncope (Acute) ANGELA (acute kidney injury) (Acute) Hypotension (Acute) Hypokalemia (Acute) Date of Admission: 01/21/18 Date of Discharge: 01/22/18 - Primary Discharge Diagnosis Active and Suspected Problems (Last Reviewed 01/21/18 @ 16:49 by Nirmal Baltazar DO) Syncope (Acute) ANGELA (acute kidney injury) (Acute) Hypotension (Acute) Hypokalemia (Acute) - Secondary Discharge Diagnosis Chronic Problems (Last Reviewed 01/21/18 @ 16:49 by Nirmal Baltazar DO) Benign essential hypertension (Chronic) Type 2 diabetes mellitus (Chronic) Gastroesophageal reflux disease (Chronic) Hyperlipidemia (Chronic) Morbid obesity (Chronic) Tobacco use (Chronic) Recurrent ventral hernia (Chronic) Hospital Course and Treatment Imaging Results: Clinical Impression(s) from Imaging Studies Chest X-Ray 01/21/18 15:27 IMPRESSION: Incomplete expansion of the lungs. Mild atelectasis or infiltrate in the medial right lung base. Electronically Signed: Leon Waters MD at 15:56 EDT , Service support , Operations: None Procedures: None Summary of Care Provided: The patient is a 47 year old F presents with a syncopal episode while at a . Patient presented to the emergency room with a systolic blood pressure in the 70s and reddening of 1.52. Patient was brought in and given IV fluids. Patient blood pressure improved and her creatinine is down to 0.75, which is her baseline. The patient's syncopal episode is likely multifactorial due to dehydration, taking her antihypertensives, the being outside in hot and also being an emotional event likely culminated in her syncopal episode. Patient feels tired but otherwise feels better. Patient did have some lactic acidosis upon arrival to which is likely related to dehydration. I have recommended the patient hold her losartan/HCTZ. I feel patient is medically stable for discharge. Physical exam Vital Signs Height 1.56 m Weight: 105.4 kg Weight in Pounds 232.4 lbs Pulse Ox 95 Temperature 36.6 C Pulse Rate 78 Respiratory Rate 20 Blood Pressure 128/72 Blood Pressure Position Semi-Fowlers Patient is no acute distress and afebrile. Heart is regular rate and rhythm plus S1-S2 without any murmurs gallops or rubs. Lungs are clear to auscultation bilaterally. [] Discharge Diet: 1800 Calorie Control Diet Discharge Activity: Return to Normal Activity Call your doctor if you observe: Fever of 101 or Higher, Shortness of breath, Dizziness, Fainting spells Home Medications: Medications to take at Discharge traZODone [Desyrel] 50 mg PO QHS 06/29/17 Albuterol Sulfate [Ventolin Hfa] 1 - 2 puff INHALATION PRN PRN 10/11/17 Oxcarbazepine [Trileptal] 300 mg PO DAILY 10/11/17 Venlafaxine HCl [Effexor] 200 mg PO BID 10/11/17 Verapamil [Calan] 120 mg PO DAILY 10/11/17 Estrogen,Con/M-Progest Acet [Prempro 0.45-1.5 mg Tablet] 1 each PO DAILY Diazepam [Valium] 5 mg PO 4X/DAY PRN PRN #30 tab 01/03/18 Docusate Sodium [Colace] 100 mg PO BID #60 cap 01/03/18 Oxycodone HCl/Acetaminophen [Percocet 5-325] 1 - 2 tab PO 4X/DAY PRN PRN 7 Days #50 tab 01/03/18 proMETHazine tablet [Phenergan tablet] 25 mg PO 4X/DAY PRN PRN #30 tab 01/03/18 Primary Care Physician: Malachi Bello MD [Primary Care Provider] - Within 2 Weeks Patient Instructions: What Is Syncope?, Understanding Dizziness, Balance Problems, and Fainting Disposition: Home Minutes spent on discharge:: 28 Patient Condition:: Good Medical Necessity - Tobacco Use Smoking Status: Former smoker Tobacco Use: Non-smoker Meaningful Use Info Meaningful Use Diagnoses (Choose all that apply): None applicable Code Visit OBSV E&M: 39667 Observation care discharge
== END 2018-01-22 12:47 | disposition home or self-care (01) ==
LOC: ED 15:42 → PCU 17:10
PROVIDERS: Emergency Provider Emergency Medicine; Family Provider Family Medicine; PCP Family Medicine
DX: R55 Syncope and collapse (principal); N17.9 Acute kidney failure, unspecified; E87.6 Hypokalemia; I95.9 Hypotension, unspecified; E11.9 Type 2 diabetes mellitus without complications; I10 Essential (primary) hypertension; K21.9 Gastro-esophageal reflux disease without esophagitis; E78.5 Hyperlipidemia, unspecified; E66.01 Morbid (severe) obesity due to excess calories; E87.2 Acidosis; E86.0 Dehydration; M19.90 Unspecified osteoarthritis, unspecified site; J44.9 Chronic obstructive pulmonary disease, unspecified; G47.30 Sleep apnea, unspecified; E28.2 Polycystic ovarian syndrome; K58.9 Irritable bowel syndrome, unspecified; E78.00 Pure hypercholesterolemia, unspecified; F41.9 Anxiety disorder, unspecified; F32.9 Major depressive disorder, single episode, unspecified; Z79.899 Other long term (current) drug therapy; Z68.41 Body mass index [BMI] 40.0-44.9, adult; Z71.3 Dietary counseling and surveillance; Z87.891 Personal history of nicotine dependence; Z85.528 Personal history of other malignant neoplasm of kidney; Z90.5 Acquired absence of kidney
CPT/HCPCS: 36415; 71045; 80048; 80053; 80076; 81001; 82962; 83605; 83735; 84484; 85025; 87086; 87088; 93005; 96360; 96361; 96372; 99218; 99282; J7030; G0378

== ENCOUNTER → 2018-02-13 14:51 | Outpatient (CLI) | payer MEDICAID, SELFPAY | PROVIDERS: Family Provider Family Medicine; PCP Family Medicine | DX: C64.2 Malignant neoplasm of left kidney, except renal pelvis (principal) | CPT/HCPCS: 71260; 74177; Q9967 ==

== ENCOUNTER → 2018-07-25 11:26 | Outpatient (CLI) | payer MEDICAID, SELFPAY ==
[2018-02-02 15:56] VITALS: BMI 42.3
[2018-07-25 13:34] LABS: Protein, Urine (Random) 17.4 mg/dL (<11.9); Protein:Creat Ratio 123 mg/g CRE (0-200)
[2018-07-25 13:36] LABS: Albumin, Serum 3.4 g/dL (3.2-5.0); BUN 12 mg/dL (7-18); BUN/Creat Ratio 16.4 RATIO (10-20); Calcium,Total 8.4 mg/dL (8.5-10.1); Chloride 109 mmol/L (98-107); Creatinine, Serum 0.73 mg/dL (0.55-1.02); EST Glomerular Filtration Rate 90 mL/min (>60); Est Glom Filt Rate - Afr Amer 109 mL/min (>60); Glucose 89 mg/dL (74-106); Phosphorus 2.4 mg/dL (2.5-4.9); Potassium 3.5 mmol/L (3.5-5.1); Sodium Level 141 mmol/L (136-145)
[2018-07-25 13:39] LABS: Vitamin D,25 Hydroxy 9.3 ng/mL (29.95-100.01)
== END ==
PROVIDERS: Family Provider Family Medicine; PCP Family Medicine; Visit Provider Internal Medicine Nephrology
DX: C64.9 Malignant neoplasm of unspecified kidney, except renal pelvis (principal); E11.9 Type 2 diabetes mellitus without complications; E55.9 Vitamin D deficiency, unspecified
CPT/HCPCS: 36415; 80069; 82306; 82570; 84156

== ENCOUNTER → 2019-01-22 14:51 | Outpatient (CLI) | payer MEDICAID, SELFPAY ==
[2018-02-02 15:56] VITALS: BMI 42.3
--- NOTE | 2019-01-22 14:57 | CT_ITS ---
STUDY: CT ABDOMEN AND PELVIS WITH AND WITHOUT CONTRAST REASON FOR EXAM: Female, 48 years old. History of left renal cell carcinoma and partial left nephrectomy. RADIATION DOSAGE (If Supplied By Facility): CTDIvol = ( 34.08 ) mGy, DLP = ( 3598.50 ) mGycm TECHNIQUE: Transaxial images were obtained from the dome of the diaphragm to the symphysis pubis without oral contrast. 100ml IV Isovue 300 was administered. Sagittal and coronal images were reconstructed. Individualized dose optimization techniques were used for this CT. COMPARISON: Comparison is made with prior examination dated February 13, 2018. FINDINGS: Minimal increased markings in the lower lobes and medial portion of the right middle lobe suggestive of scarring. The visualized portions of the heart are within normal limits. Normal liver. There are surgical clips in the gallbladder fossa consistent with a prior cholecystectomy. Normal spleen. Normal pancreas. Normal bilateral adrenal glands. Normal right kidney. Residual postoperative changes are seen in the posterior midportion of the left kidney. Mild residual increased markings in the perinephric fat. There is a small hiatal hernia. Normal small intestine. Normal colon. The appendix is visualized and appears normal. There is scattered atherosclerotic calcification of the abdominal aorta, without a demonstrated aneurysm. Normal inferior vena cava. There is borderline retroperitoneal lymphadenopathy with enlarged nodes no greater than 10mm in the short axis diameter. Normal urinary bladder. There is evidence of a mesh repair of an anterior mid abdominal wall hernia. There are mild degenerative changes of the visualized lumbar spine. CT/CT Abd/Pelvis W/WO Contrast IMPRESSION: Stable mild residual postoperative changes along the posterior midportion of the left kidney. No acute abnormality is seen. Electronically Signed: Job Patterson, at 14:40 EDT , Service support ,
[2019-01-22 15:10] LABS: EGFR FINGERSTICK > 60.0000 mL/min (>60)
== END ==
PROVIDERS: Family Provider Family Medicine; PCP Family Medicine; Referring Provider Internal Medicine Nephrology; Visit Provider Internal Medicine Nephrology
DX: C64.9 Malignant neoplasm of unspecified kidney, except renal pelvis (principal)
CPT/HCPCS: 74178; Q9967

== ENCOUNTER 2019-02-20 11:44 | Outpatient (RCR) | payer MEDICAID, SELFPAY | END 2019-02-20 23:59 | disposition home or self-care (01) | LOC: NS 11:44 | PROVIDERS: Family Provider Family Medicine; PCP Family Medicine; Visit Provider Family Medicine | DX: Z71.3 Dietary counseling and surveillance (principal); E66.01 Morbid (severe) obesity due to excess calories; Z68.42 Body mass index [BMI] 45.0-49.9, adult | CPT/HCPCS: 97802 ==

== ENCOUNTER → 2019-03-12 09:50 | Outpatient (CLI) | payer MEDICAID, SELFPAY ==
[2018-02-02 15:56] VITALS: BMI 42.3
--- NOTE | 2019-03-12 09:52 | NM_ITS ---
CLINICAL: Female, 48 years old. Partial left nephrectomy. Diffuse skeletal pain. WHOLE BODY NUCLEAR BONE SCAN TECHNIQUE: Following the IV administration of 27.1 mCi of Tc MDP, whole body bone imaging was performed with a gamma camera following a three hour delay. COMPARISON STUDIES : Comparison is made with prior radiographs taken earlier in the day. FINDINGS: Increased uptake is seen at the level of both knee joints worse on the right side. Increased radiopharmaceutical uptake also seen in the shoulder joints bilaterally. Findings are in keeping with the degenerative changes. NM/Bone Scan Whole Body IMPRESSION: Findings into pituitary changes of the shoulder joints and knee joints as described. Electronically Signed: Job Patterson, at 9:19 EDT , Service support ,
--- NOTE | 2019-03-12 10:10 | RAD_ITS ---
STUDY: X-RAY - CERVICAL SPINE REASON FOR EXAM: Female, 48 years old. Cervicalgia. History of kidney cancer 2018. TECHNIQUE: 5 view(s) of the cervical spine were obtained. COMPARISON: None FINDINGS: There are degenerative changes of the anterior atlantoaxial articulation. Normal odontoid process. There is straightening of the normal cervical lordosis. Minor calcification in the anterior longitudinal ligament at the level of the inferior C2 vertebral endplate. Focal calcification noted anterior to the C5-6 disc space. Normal vertebral bodies and endplates. Normal disc space heights. There are degenerative changes in the left C2-3 and bilateral C6-7 facet joints with mild to moderate osseous encroachment on the C6-7 intervertebral neural foramina,, greater on the left. The prevertebral soft tissue structures are unremarkable. There is no demonstrated osseous destructive process or acute fracture of the cervical spine. RAD/Cerv Spine 4 or 5 Views IMPRESSION: Degenerative changes of the cervical spine, as described. Electronically Signed: Dylan Padron MD at 19:37 EDT , Service support ,
--- NOTE | 2019-03-12 10:11 | RAD_ITS ---
STUDY: X-RAY - LUMBAR SPINE REASON FOR EXAM: Female, 48 years old. Back pain. History of kidney cancer 2018. TECHNIQUE: 5 view(s) of the lumbar spine were obtained. COMPARISON: CT abdomen and pelvis January 22, 2019 FINDINGS: Normal lumbar lordosis. There is no substantial scoliosis. There is a normal alignment of the vertebrae. There is stable multilevel endplate spondylosis of the lumbar vertebrae. There is stable L2-3 degenerative disc space narrowing. There is no demonstrated osseous structures of lesion or acute fracture. There are stable degenerative changes of the facet articulations. Surgical clips of prior cholecystectomy project in the right upper quadrant, and there are additional retroperitoneal surgical clips on the left. RAD/L/S Spine Min 4 Views IMPRESSION: Stable degenerative changes of the spine, as detailed above. Electronically Signed: Dylan Padron MD at 20:12 EDT , Service support ,
--- NOTE | 2019-03-12 10:11 | RAD_ITS ---
STUDY: X-RAY - SACROILIAC JOINTS REASON FOR EXAM: Female, 48 years old. Pain. History of kidney cancer 2018. TECHNIQUE: 3 view(s) of the sacroiliac joints were obtained. COMPARISON: None. FINDINGS: There are mild degenerative changes of the bilateral mid sacroiliac joints. Normal visualized sacral ala and sacrum. There is no demonstrated osseous destructive process or apparent fracture. Degenerative changes are suggested in the lumbosacral facet joints. Normal visualized iliac bones. Normal visualized soft tissue structures. RAD/S-I Jts 3 or More Views IMPRESSION: Mild degenerative changes of the bilateral mid sacroiliac joints. Electronically Signed: Dylan Padron MD at 20:18 EDT , Service support ,
--- NOTE | 2019-03-12 10:12 | RAD_ITS ---
STUDY: X-RAY - RIGHT SHOULDER REASON FOR EXAM: Female, 48 years old. Pain. History of kidney cancer 2018. TECHNIQUE: Frontal and Y-view(s) of the shoulder, including AP internal and external rotation views. COMPARISON: None. FINDINGS: Normal glenohumeral articulation. There is borderline arthrosis of the acromioclavicular joint without inferior osseous spur formation. Normal acromion. Normal humeral head and visualized proximal humerus. The soft tissue structures are unremarkable. There is no demonstrated osseous destructive lesion or acute fracture. Normal visualized pulmonary apex. RAD/Shoulder min 2 Views IMPRESSION: No acute osseous abnormality of the right shoulder. Electronically Signed: Dylan Padron MD at 20:07 EDT , Service support ,
--- NOTE | 2019-03-12 10:13 | RAD_ITS ---
STUDY: X-RAY - LEFT WRIST REASON FOR EXAM: Female, 48 years old. Pain. History of kidney cancer 2018. TECHNIQUE: 2 view(s) of the wrist were obtained. COMPARISON: None. FINDINGS: Normal visualized distal radius and ulna. Normal radiocarpal articulation. There is a negative ulnar variance. Normal carpal bones. Normal carpal articulations. There is degenerative arthrosis of the carpometacarpal articulation of the thumb with a 2 mm lateral periarticular degenerative ossification.. Normal second through fifth carpometacarpal articulations. Normal visualized metacarpal bones. The soft tissue structures are unremarkable. There is no demonstrated osseous destructive lesion. There is no demonstrated acute fracture. RAD/Wrist 2 Views IMPRESSION: Mild degenerative changes of the left wrist, as described. No demonstrated acute osseous abnormality. Electronically Signed: Dylan Padron MD at 19:59 EDT , Service support ,
--- NOTE | 2019-03-12 10:14 | RAD_ITS ---
STUDY: X-RAY - RIGHT FOOT CLINICAL: Female, 48 years old. Pain on top of foot. History of kidney cancer 2018. TECHNIQUE: 2 view(s) of the foot. COMPARISON: None. FINDINGS: There is an enthesophyte involving the posterior superior calcaneus at the site of insertion of the Achilles tendon. There is a plantar calcaneal spur. Mild anterior pericardial spurring of the proximal navicular. Normal talus and remaining tarsal bones. Normal visualized subtalar, talonavicular, calcaneocuboid, tarsal and tarsometatarsal articulations. Normal metatarsi. Normal metatarsophalangeal joint of the great toe. Normal tibial and fibular sesamoid bones. Normal interphalangeal joint of the great toe. Normal phalanges of the great toe. Normal second through fifth metatarsophalangeal joints. Normal interphalangeal joints and phalanges of the lesser toes. The soft tissue structures are unremarkable. There is no demonstrated osseous destructive lesion or acute fracture. RAD/Foot 2 Views IMPRESSION: Degenerative changes in the hindfoot, as described. No acute osseous abnormality of the right foot. Electronically Signed: Dylan Padron MD at 19:58 EDT , Service support ,
--- NOTE | 2019-03-12 10:14 | RAD_ITS ---
STUDY: X-RAY - THORACIC SPINE REASON FOR EXAM: Female, 48 years old. Back pain. History of kidney cancer 2018. TECHNIQUE: 3 view(s) of the thoracic spine were obtained. COMPARISON: None. FINDINGS: Normal kyphosis of the thoracic spine. There is a 7 degree levoscoliosis centered at T9-10. There is multilevel endplate spondylosis of the thoracic vertebrae. Normal disc space heights. There is no demonstrated osseous destructive lesion or compression fracture. The paraspinal soft tissue structures are unremarkable. RAD/Thoracic Spine 3 Views IMPRESSION: Degenerative changes of the thoracic spine. Electronically Signed: Dylan Padron MD at 20:10 EDT , Service support ,
--- NOTE | 2019-03-12 10:15 | RAD_ITS ---
STUDY: X-RAY - LEFT SHOULDER REASON FOR EXAM: Female, 48 years old. Pain. History of kidney cancer 2018. TECHNIQUE: Frontal and Y-view(s) of the shoulder, including AP internal and external rotation images. COMPARISON: None. FINDINGS: Normal glenohumeral articulation. Normal acromioclavicular joint. There is early superior periarticular spurring of the distal clavicle. Normal acromion. Normal humeral head and visualized proximal humerus. The soft tissue structures are unremarkable. There is no demonstrated osseous destructive lesion or acute fracture. Normal visualized pulmonary apex. RAD/Shoulder min 2 Views IMPRESSION: No acute osseous abnormality of the left shoulder. Electronically Signed: Dylan Padron MD at 20:04 EDT , Service support ,
--- NOTE | 2019-03-12 10:16 | RAD_ITS ---
STUDY: X-RAY - RIGHT KNEE REASON FOR EXAM: Female, 48 years old. Pain. History of kidney cancer 2018. TECHNIQUE: 4 view(s) of the knee. COMPARISON: None. FINDINGS: There is lateral periarticular spurring of the lateral femoral condyle. There is mild periarticular spurring of the bilateral tibial plateaus as well as early spurring of the tibial spines. Normal visualized proximal right fibula. There is periarticular spurring at the base of the patella. There is no demonstrated destructive osseous lesion or acute fracture of the right knee. There is degenerative arthrosis of the medial femorotibial compartment with moderate joint space narrowing and mild genu varus deformity. Normal lateral femorotibial compartment of the right knee. There is moderate degenerative arthrosis of the patellofemoral articulation. There is no significant joint effusion. The soft tissue structures are unremarkable. RAD/Knee 4 or More Views IMPRESSION: Tricompartmental degenerative arthrosis of the knee, with notable narrowing in the medial femorotibial and femoropatellar joint compartments. Electronically Signed: Dylan Padron MD at 20:08 EDT , Service support ,
--- NOTE | 2019-03-12 10:17 | RAD_ITS ---
STUDY: X-RAY - RIGHT WRIST REASON FOR EXAM: Female, 48 years old. Pain. History of kidney cancer 2018. TECHNIQUE: 2 view(s) of the wrist were obtained. COMPARISON: None. FINDINGS: Normal visualized distal radius and ulna. Normal radiocarpal articulation. There is a borderline negative ulnar variance. Normal carpal bones. Normal carpal articulations. Normal carpometacarpal articulation of the thumb. Normal second through fifth carpometacarpal articulations. Normal visualized metacarpal bones. The soft tissue structures are unremarkable. There is no demonstrated osseous destructive lesion. There is no demonstrated acute fracture. RAD/Wrist 2 Views IMPRESSION: Borderline negative ulnar variance, otherwise normal x-ray examination of the right wrist. Electronically Signed: Dylan Padron MD at 20:15 EDT , Service support ,
--- NOTE | 2019-03-12 10:17 | RAD_ITS ---
STUDY: X-RAY - BILATERAL HANDS REASON FOR EXAM: Female, 48 years old. Pain, fibromyalgia. History of kidney cancer 2016. TECHNIQUE - RIGHT HAND: 2 view(s) of the right hand were obtained. TECHNIQUE - LEFT HAND: 2 view(s) of the left hand were obtained. COMPARISON: None. FINDINGS - RIGHT HAND: Normal visualized carpal bones and carpal articulations. Normal carpometacarpal articulation of the thumb. Normal second through fifth carpometacarpal joints. Normal metacarpi. Normal metacarpophalangeal (MCP) joints. Early degenerative periarticular spurring seen at the lateral base of the first distal phalanx and medial base of the second distal phalanx. Otherwise, normal visualized phalanges and interphalangeal joints. The soft tissue structures are unremarkable. There is no demonstrated osseous destructive lesion or acute fracture. FINDINGS - LEFT HAND: Normal visualized carpal bones and carpal articulations. There is mild degenerative arthrosis of the carpometacarpal (CMC) articulation of the thumb. Normal second through fifth carpometacarpal joints. Normal metacarpi. Normal metacarpophalangeal (MCP) joints. Small degenerative paratracheal calcification at the first interphalangeal joint. There is minor periarticular spurring at the medial bases of the second and third distal phalanges. Otherwise, normal visualized phalanges and interphalangeal joints. The soft tissue structures are unremarkable. There is no demonstrated osseous destructive lesion or acute fracture. RAD/Hand 2 Views IMPRESSION: Right Hand: No acute osseous abnormality of the right hand. Left Hand: No acute osseous abnormality of the left hand. Electronically Signed: Dylan Padron MD at 20:14 EDT , Service support ,
--- NOTE | 2019-03-12 10:18 | RAD_ITS ---
STUDY: X-RAY - LEFT KNEE REASON FOR EXAM: Female, 48 years old. Pain. History of kidney cancer 2018. TECHNIQUE: 4 view(s) of the knee. COMPARISON: None. FINDINGS: There is lateral periarticular spurring of the lateral femoral condyle. There is mild periarticular spurring of the bilateral tibial plateaus as well as early spurring of the tibial spines. Normal visualized proximal right fibula. There is periarticular spurring of the base of the patella. There is no demonstrated destructive osseous lesion or acute fracture of the left knee. There is degenerative arthrosis of the medial femorotibial compartment with moderate joint space narrowing and mild genu varus deformity. Normal lateral femorotibial compartment of the left knee. There is mild degenerative arthrosis of the patellofemoral articulation. There is no significant joint effusion. 2 mm degenerative calcification seen in the tissues medial to the medial femoral condyle. RAD/Knee 4 or More Views IMPRESSION: Tricompartmental degenerative arthrosis of the left knee, with narrowing most prominent in the medial femorotibial compartment. Electronically Signed: Dylan Padron MD at 20:07 EDT , Service support ,
--- NOTE | 2019-03-12 10:19 | RAD_ITS ---
STUDY: X-RAY - BILATERAL KNEES REASON FOR EXAM: Female, 48 years old. Bilateral knee pain. History of kidney cancer 2018. TECHNIQUE: 1 AP standing weight-bearing view view(s) of the bilateral knees. COMPARISON: None. FINDINGS - RIGHT KNEE: There is lateral periarticular spurring of the lateral femoral condyle. There is mild periarticular spurring of the bilateral tibial plateaus as well as early spurring of the tibial spines. Normal visualized proximal right fibula. Grossly normal patella. There is no demonstrated destructive osseous lesion or acute fracture of the right knee. There is degenerative arthrosis of the medial femorotibial compartment with moderate joint space narrowing and mild genu varus deformity. Normal lateral femorotibial compartment of the right knee. The soft tissue structures are unremarkable. FINDING - LEFT KNEE: There is lateral periarticular spurring of the lateral femoral condyle. There is mild periarticular spurring of the bilateral tibial plateaus as well as early spurring of the tibial spines. Normal visualized proximal right fibula. Grossly normal patella. There is no demonstrated destructive osseous lesion or acute fracture of the left knee. There is degenerative arthrosis of the medial femorotibial compartment with moderate joint space narrowing and mild genu varus deformity. Normal lateral femorotibial compartment of the left knee. 2 mm degenerative calcification seen in the tissues medial to the medial femoral condyle. RAD/Knees Standing AP Bilateral IMPRESSION: Degenerative arthrosis of the bilateral knees, as described. No demonstrated osseous destructive lesion. Electronically Signed: Dylan Padron MD at 20:03 EDT , Service support ,
--- NOTE | 2019-03-12 10:20 | RAD_ITS ---
STUDY: X-RAY - LEFT FOOT CLINICAL: Female, 48 years old. Pain on top of foot. History of kidney cancer 2018. TECHNIQUE: 2 view(s) of the foot. COMPARISON: None. FINDINGS: There is an enthesophyte involving the posterior superior calcaneus at the site of insertion of the Achilles tendon. There is a plantar calcaneal spur. There is minor anterior cortical spurring of the navicular and distal medial cuneiform. Normal talus and remaining tarsal bones. Normal visualized subtalar, talonavicular, calcaneocuboid, tarsal and tarsometatarsal articulations. Normal metatarsi. Normal metatarsophalangeal joint of the great toe. Normal tibial and fibular sesamoid bones. Normal interphalangeal joint of the great toe. Normal phalanges of the great toe. Normal second through fifth metatarsophalangeal joints. Normal interphalangeal joints and phalanges of the lesser toes. Small, oblong degenerative ossification seen in the plantar soft tissues of the hindfoot. There is no demonstrated osseous destructive lesion or acute fracture. RAD/Foot 2 Views IMPRESSION: Degenerative changes in the hindfoot, as described. No acute osseous abnormality of the left foot. Electronically Signed: Dylan Padron MD at 19:46 EDT , Service support ,
== END ==
PROVIDERS: Family Provider Family Medicine; PCP Family Medicine; Referring Provider Internal Medicine Rheumatology; Visit Provider Internal Medicine Rheumatology
DX: M54.2 Cervicalgia (principal); M79.7 Fibromyalgia; Z85.528 Personal history of other malignant neoplasm of kidney
CPT/HCPCS: 36415; 72050; 72072; 72110; 72202; 73030; 73100; 73120; 73564; 73565; 73620; 78306

== ENCOUNTER 2019-06-25 09:02 | Day surgery (SDC) | payer MEDICAID, SELFPAY ==
[2019-04-26 14:28] VITALS: BMI 42.3
[2019-06-25] VITALS (7 sets, daily range): BP systolic 138–154; BP diastolic 80–91; PULSE 72–83; RESP 15–16; TEMP 36.3–36.4; O2SAT 95–97; BMI 53.0
[2019-06-25] MEDS: Lactated Ringers 1,000 ML 100 ML IV (09:52)
[2019-06-25 10:01] LABS: Bedside Glucose 99 mg/dL (70-110)
--- NOTE | 2019-06-25 10:14 | RAD_ITS ---
PROCEDURE: Caudal block. DATE OF EXAMINATION: June 25, 2019. INDICATION: Female, 48 years old. Low back pain. FLUOROSCOPY TIME (if supplied): (10 seconds) minutes/seconds Intraoperative imaging provided for caudal block. RAD/Fluor Guidance for Spine Inj IMPRESSION: Intraoperative imaging provided for caudal block. Electronically Signed: Job Patterson, at 14:42 EST , Service support ,
[2019-06-25] MEDS: MethylPREDNISolone Acetate 80 MG/ML Vial (10:25)
[2019-06-25] MEDS: Bupivacaine 0.25% 30 ML Vial (10:25)
[2019-06-25] MEDS: 0.9% Normal Saline (Pres. free 10 ML Vial (10:25)
--- NOTE | 2019-06-25 11:15 | PCM.OPRPT ---
Report of Operation Date of Procedure: 06/25/19 Description of Surgical Findings:: PREOPERATIVE DIAGNOSIS: Lumbosacral radiculopathy, lumbosacral degenerative disc disease, lumbosacral spinal stenosis POSTOPERATIVE DIAGNOSIS: Lumbosacral radiculopathy, lumbosacral degenerative disc disease, lumbosacral spinal stenosis PROCEDURE PERFORMED: Diagnostic/therapeutic caudal epidural steroid injection. ANESTHESIA: MAC. BLOOD LOSS: Minimal. COMPLICATIONS: None. DESCRIPTION OF PROCEDURE: History and physical of today was reviewed. Risks and benefits of the procedure were explained. The patient understood and agreed to proceed. Informed consent was obtained. IV inserted per routine protocol. The patient was taken to the operating room and placed in the prone position with a pillow positioned underneath the abdomen. The lower back and tailbone area was prepped and draped in a sterile fashion using iodine x3. Under fluoroscopy guidance on a lateral view, the caudal space was identified. The skin and subcutaneous tissue was anesthetized with approximately 3 mL of 1% lidocaine using a 25-gauge regular needle. Under direct visualization with fluoroscopy, using a 22-gauge 3-1/2-inch spinal needle, the needle was advanced via the skin through the sacral hiatus. The tip of the needle was passed through the sacrococcygeal ligament and advanced to approximately S4 area. After negative aspiration of blood or CSF, a total of 3 mL of contrast was injected to confirm correct placement of the needle as well as cephalad spread. The spread was followed to approximately L5 area. After confirmation on AP as well as lateral view and repeated negative aspiration, a total of 15 mL of preservative-free 0.125% Marcaine with 80 mg of Depo-Medrol was injected easily. The needle was then removed intact. The patient experienced no sign or symptoms of intrathecal or intravascular injection. The patient experienced no paresthesia. The procedure was completed without any apparent difficulty or any complications. The patient appeared to tolerate it well. ASSESSMENT AND PLAN: This is a 48-year-old female with lumbosacral radiculopathy, lumbosacral degenerative disc disease, lumbosacral spinal stenosis status post diagnostic/therapeutic caudal epidural steroid injection patient will continue her current medications patient found approximately 2 weeks for reevaluation
== END 2019-06-25 11:11 | disposition home or self-care (01) ==
LOC: SDC 09:05 → AC 09:05
PROVIDERS: Family Provider Family Medicine; PCP Family Medicine; Referring Provider Anesthesiology Pain Medicine; Visit Provider Anesthesiology Pain Medicine
PROC: 3E0S3BZ Introduction of Anesthetic Agent into Epidural Space, Percutaneous Approach (ICD-10-PCS; CPT 62282; principal; 2019-06-25 10:10)
DX: M51.17 Intervertebral disc disorders with radiculopathy, lumbosacral region (principal); M48.07 Spinal stenosis, lumbosacral region; Z87.891 Personal history of nicotine dependence; M79.7 Fibromyalgia; E11.9 Type 2 diabetes mellitus without complications; K21.9 Gastro-esophageal reflux disease without esophagitis; Z85.528 Personal history of other malignant neoplasm of kidney; M46.96 Unspecified inflammatory spondylopathy, lumbar region; Z79.899 Other long term (current) drug therapy
CPT/HCPCS: 62323; 64490; 77003; 82962; J7120; J3490

== ENCOUNTER 2019-07-03 11:30 | Outpatient (RCR) | payer MEDICAID, SELFPAY ==
--- NOTE | 2019-03-19 12:50 | HP.OTEVAL ---
Patient's Visit Information TAMMI GARRISON is a 48 year old F, referred to Occupational Therapy by Ryan De La Cruz Jr., MD, with a diagnosis of B CTS; B shoulder pain. Date of Evaluation: 03/19/19 Occupational Therapist: Deepti Nieves, OTR/L - Subjective Subjective: Tammi is 48 y/o woman who was referred to OT for CTS in bilateral hands and pain in R shoulder. SHe does have significant PMHx of cervicalgia. She noted she is not currently working due to bipolar type 1 with maniac depression. She noted she has been dealing with CTS for off/on for last 9 years with nerve conduction completed in 2009. 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, Comb hair Kitchen: Chop with knife, Peel fruits & vegetables, Open jars, Open bottle caps, Ziplock bags, Pour from pitcher, Lift saucepan, Take dish out of oven, Load/unload warhead maintenance specialist, Place dish in microwave Household: Vacuum Yard: Mow lawn Miscellaneous: Use cell phone, Open medication bottle, Handle money (change), Hold change, Take things out of wallet, Write, Use power tools, Operate spray bottle, Operate aerosol cans, Do crafts, Sew, Gisel/knit/needlework - Pain Left hand 3 Pain Intensity Range: 0, 1, 8 Right hand 1 Pain Intensity Range: 0, 5 - ROM Shoulder: flexion R 0-97, L WFL; ext R 0-18, L WFL; abduction R 0-96, L WFL Wrist: flexion R 0-37, L 0-30; ext R 0-32, L 0-44 CMC: WFL MP: WFL IP: WFL Radial Abduction: WFL [place] Abduction: WFL MP: WFL PIP: WFL DIP: WFL - Strength Shoulder: flexion 3+/5, L 4+/5 Elbow: R 4+/5, L 5/5 Forearm: R 4+/5, L 5/5 Apartment Rental Clerk: rendering equipment tender in flexed position 2: R 16, L 13; rendering equipment tender in extended position 2 R 10, L Lateral Pinch: R 4, L 3 Tripod Pinch: R 4, L 3 Tip-to-Tip Pinch: R 2, L 2 - Sensation Thumb: R 3.22, L 2.83 Index: R 2.83, L 2.83 Middle: R 3.22, L 2.83 Ring: R 2.83, L 2.83 Little: R 3.61, L 3.22 Sensation Comments: 2.83 normal on monofilament test; light touch sensations deficits noted. - Nine Hole Peg Right: 42. 18 s Left: 43. 72 s - Special Tests Lift Off Test - Subscapular Tear: negative Drops Sign - IS Test: negative Empty Can - SS: negative Neer - Impingement: positive Biceps Load Test: positive - Quick DASH-Disab of Arm,Shoulder& Hand Quick DASH Score: 61.3625 - Carpal Tunnel Syndrome Total Score of Symptom & Functional Sections: 40 - Goals Goal:: Tammi to regain 15-20 lbs to promote strength of BUE needed to complete ADL/IADLs 4/5 trials 80% of the time by d/c. Goal:: Tammi to increase R shoulder ROM by 15 degrees 4/5 trials 80% of the time to promote increased ROM needed to complete ADL/IADLs by d/c. Goal:: Tammi to be mod I to complete pain management techniques with nerve glides and paraffin to promote increased ability to use B hands 4/5 trials 80% of the time by d/c. Goal:: Tammi to be (I) to complete all ADls/IADLs 4/5 trials 80% of the time to return to PLOF by d/c. Goal:: Tammi to be (I) to complete daily HEp to promote increaed use of R shoulder and B hands with decreased syptoms 4/5 trials 80% of the time by d/c. - Rehabilitation General Assessment: Tammi is 48 y/o woman referred to OT due to CTS of bilateral hands. She has significant PMHx of fibromyalgia, paresthia, ulnar neuropathy of R UE, dorsalgia, tendonitis of rotator cuff of B shoulder, B biceps tendonitis, cervicalgia and weakness of bilateral hands. Tammi's L shoulder ROM is WFL but R is functioning at about 50%. She remains limited in ROM and strength. Skilled OT warranted to address pain management of B wrists and shoulders, ROM, strength, training on use of paraffin bath, and general ability to return to PLOF for all ADL/IALDs. Rehabilitation Potential: Good - Anticipated Interventions Anticipated Interventions: A/AAROM/PROM, Strengthening, Scar Care, Sensory Retraining, Wound Care, Modalities, Orthoses, Joint Protection/Energy Conservation, Ergonomic Education, Fine Motor Coord/[place], ADL Training, Caregiver Training, Home Program - Visit Plan Frequency: 2x /Week Duration: 4 Weeks General Plan: Tammi to complete 2x weekly for 4 weeks OT as limited insurance visits to promote ROM, strength, endurance, pain management, HEP and genral ability to use B UE at PLOF. TEXT: Thank you for the opportunity to evaluate your patient. For Medicare and Medicare HMO plans, please review the plan of care and approve it. It will need to be FAXED BACK to us at [phone] for Medicare purposes. Please let me know if there are questions or concerns regarding this plan of care. Physician Signature: Date:
--- NOTE | 2019-03-19 16:05 | HP.PTEVAL_ITS ---
Patient's Visit Information BIANKA GARRISON is a 48 year old F referred to Physical Therapy by Ryan De La Cruz Jr., MD with a diagnosis of B chronic knee pain, pes anserine bursitis, B shoulder RTC tendonitis. Date of Evaluation: 03/19/19 Physical Therapist: Mesfin Darnell DPT - Visit Plan Frequency: 2-3x /Week Duration: 4 Weeks Plan: Aquatic setting. 1) HS stretching, Hip flexor stretching. 2) hip/quad/core strengthening (avoid squats). 3) progress HEP for core stability/hip stnreghtening. 4) progress walking program as tolerated. - Subjective Findings: Pt. is her cfor her initial evaluation with diagnosis of cervicalgia, bilateral foot pain, tendonitis of Bilateral Rotator cuffs, Subacromial bursitis, pes anserine bursitis of B knees, hip flexor tendonitis of R hip, Greater trochanterics bursitis of L hip, chronic pain of B knees and shoulders, B biceps tendonitis. Hx: kidney CA, fibromyalgia, MRSA, TJ, hyperglycemia, Pt. reports having increased pain all over for approximately 1 year, but has had B knee pain for 10 years. Symptoms are gettign worse. Pt. was recently diagnosed with Fibromyalsia. Started on a muscle relax, but is having a hard time taking them due to making drowsy. Increased shoulder pain: reaching above her head, washing her hair. Low back pain increased: mopping, cleaning, standing for brief periods of time. B knees increased pain: standing greater than 10 minutes, stairs, getting up after sitting too long. Pt. reports rest, changing positions seems to help but only slight. Ice also provides some small relief. Pt. reports no N/T. Pt. does report increased weakness in BLEs, and have given out on her, but no falls. Pt. reports sleeping upto 5-6 hours with medications. Pt. has lost a substanial amount of wt over the past few years. Pt. reports she not working currently, but attempts to clean her house frequently. Pt. does not get out of the house much. Pt. is now walking upto 1 block prior to requiring rest periods due to higher levels of B knee pain. Pt. is hopeful to reduce symptoms in order to get back to walking to her mothers house (~7 blocks) without issues. - Pain R shoulder Pain Intensity (Out of 10): 3 Pain Intensity Range: 1, 10 Low back Pain Intensity (Out of 10): 5 Pain Intensity Range: 10 L knee Pain Intensity (Out of 10): 6 Pain Intensity Range: 10 R knee Pain Intensity (Out of 10): 3 Pain Intensity Range: 10 - Objective POSTURE: Pt. is over wt. She has increased knee valgus positoning of b knees. Pt. stands with increased L wt. shift, anterior pelvic tilt and rounded shoulders. PALPATION: Pt. has increased tenderness at subacromial space of R shoulder, L greater trochanter, B lumbar erector spinea. She is also having pain and R subacromial space, bicipital groove. Pt. has increased tenderness at medial joint line of B knees and HS insertions. NEURO: normal throughout. Normal DTR, normal sensation. ROM: RLE- ankle- normal except DF 8deg; knee- 0 -6-114deg; hip- flexion 110deg increase NW, ext 8deg increase NW, abd 45deg NE, IR 30deg increase NW, ER 45deg increase NW. LLE- ankle: normal except DF 6deg; knee: 0-0-121deg; hip- flexion 100deg increase NW, abd 45deg NE, ext 10deg increase NW, ER 45deg increase NW, IR 27deg incerase NW. Pt. has tight HS, hip flexors and IT band bilaterally. L shoulder- full ROM withtout increase in symptoms. R shoulder- AROM: flexion 98deg, abd 108deg, functional IR L5, functional C1 abherrant motion. MMT: RLE- ankle 5/5 throughout; knee- ext 4+/5, flexion 4/5; hip- flexion 4/5, abd 4-/5, ext 4-/5. LLE- ankle 5/5 throughout; knee- ext 4/5, flexion 4/5; hip- flexion 4-/5, abd 4-/5, ext 4/5. Core strength- poor. R shoulder- 4/5 throughout without increase in symptoms with all motions. L shoulder- 4+/5 throughout NE. GAIT: Pt. ambulates with anterior pelvic tilt positioning. Decreased step length and increased postural sway. Pt. has increased lateral ship motion, but not true [place] motions. Pt. has general flexed posture and decreased hip extension B. Pt. also presents with limited knee flexion B and general flexed posture throughout. STAIRS: Pt. negotiates wtih step to pattern with increased in both B hips and knees during stance phases. Heavy use of BHR during ascending and descending. - Goals Goal 1:: Pt. to be I with HEP with focus on hip/LE stretching. Goal Time Frame: 4-6 Weeks Goal 2:: Pt. to have increased HS and hip flexor lenght by 25% bilaterally. Goal Time Frame: 4-6 Weeks Goal 3:: Pt. to walk upto 7 blocks allowing her to walk to her mothers house with 2/10 pain in B knees and lumbar spine. Goal Time Frame: 4-6 Weeks Goal 4:: Pt. to be able to sleep throughout the night with 2/10 pain allowing for increased quality of life. Goal Time Frame: 4-6 Weeks Goal 5:: Pt. to have full R shoulder ROM without increase in symptoms. Goal Time Frame: 4-6 Weeks - Rehabilitation Potential Physical Therapy Diagnosis: Pt. presents with tendonitis of Bilateral Rotator cuffs, Subacromial bursitis, pes anserine bursitis of B knees, hip flexor tendonitis of R hip, Greater trochanterics bursitis of L hip, chronic pain of B knees and shoulders, B biceps tendonitis. Pt. has generalized tightness throughout Rehabilitation Potential: Fair - Anticipated Interventions Patient/Client Instruction: Educate patient on: Condition, Plan of Care, Risk Factors, Benefits of Fitness Program For the Purpose of:: To improve decision making, To facilitate caregiver knowledge, To improve self management, To prevent re-injury, To improve ability to perform tasks related to life management, To improve tolerance to ADL's Therapeutic Exercise to Include: Strength training, Power training, Endurance training, Balance training, Body mechanics, Postural training, Flexibilty training, Gait and locomotor training, Passive ROM, Active ROM, Dynamic Lumbar Stabilization, Fab Exercises For the Purpose of:: To decrease pain, To decrease swelling/inflammation, To increase ROM, To improve nutrient delivery to tissue, To improve performance and independence with ADL's, To improve gait and locomotor functions, To improve health of tissue, To decrease soft tissue restriction, To increase flexibility/ROM Thank you for the opportunity to evaluate your patient. For Medicare and Medicare HMO plans, please review the plan of care and approve it. It will need to be FAXED BACK to us at [phone] for Medicare purposes. For Medicare only, by signing this I certify the plan of care. Please let me know if there are questions or concerns regarding this plan of care. Physician Signature: Date:
--- NOTE | 2019-04-18 15:06 | HP.OTREVAL ---
Ryan De La Cruz Jr., MD, It has been my pleasure to treat TAMMI GARRISON over the last 7 visits for B CTS; B shoulder pain. Please see the progress note below for an update on the occupational therapy plan of care! Subjective: Arrived 12 mins late as had AT session prior and coming from pool. Noted soreness but no pain in R shoulder post starting stretches. Objective/Function: Completed reassessment on this date 04/18/19. ROM. Shoulder: - flexion R 0-107, L 0-111. - extentsion R 0-45, L 0-40. - abduction R 0-131, L 0-134. Wrist. - flexion R 0-79, L 0-66. - extentsion R 0-59, L 0-57. Strength: - manager portable in flexed position 2: R 36, L 38 lbs. - manager portable in extended position 2: R 24, L 24 lbs. - lateral pinch R 7, L 6 lbs. - tripod R 2, L 3 lbs. - pincer R 2, L 3 lbs. Sensation: R 2nd 2.44, 3rd 2.44, 4th 2.36, 5th 2.44, thumb 2.44. L 2nd 2.44, 3rd 2.44, 4th 2.44, 5th 2.44, thumb 2.44. Measurements on this date of 04/16/19 and are as follows: ROM. Wrist. - flexion R 0-65, L 0-69. - extentsion R 0-45, L 0-55. Strength: - manager portable position flexed in position 2: R 28, L 28. - manager portable position extentsion in position 2: R 30, L 26. - lateral: R 5, L 5. - tripod: R 4, L 4. - pincer: R 2, L 2. Sensation: R 2nd 2.44, 3rd 2.44, 4th 2.36, 5th 2.44, thumb 2.44. L 2nd 2.44, 3rd 2.44, 4th 2.44, 5th 2.44, thumb 2.44. 9 hole pegboard test: R 27.45 s. L 29.83 s Plan Frequency: 1-2x /Week Duration: 3 Weeks Visits in this POC: 8 Plan: Continue POC for 1-2x weekly for the next 3 weeks and will focus on PRE for BUE to promote increased strengthening and ROM. Will continue to work on ergonomics to manage thumb pain for crocheting. Goals - Goals Goal:: Tammi to regain 15-20 lbs to promote strength of BUE needed to complete ADL/IADLs 4/5 trials 80% of the time by d/c. Goal:: Tammi to increase R shoulder ROM by 15 degrees 4/5 trials 80% of the time to promote increased ROM needed to complete ADL/IADLs by d/c. Goal:: Tammi to be mod I to complete pain management techniques with nerve glides and paraffin to promote increased ability to use B hands 4/5 trials 80% of the time by d/c. Goal:: Tammi to be (I) to complete all ADls/IADLs 4/5 trials 80% of the time to return to PLOF by d/c. Goal:: Tammi to be (I) to complete daily HEp to promote increaed use of R shoulder and B hands with decreased syptoms 4/5 trials 80% of the time by d/c. Anticipated Interventions Anticipated Interventions: A/AAROM/PROM, Strengthening, Scar Care, Sensory Retraining, Wound Care, Modalities, Orthoses, Joint Protection/Energy Conservation, Ergonomic Education, Fine Motor Coord/[place], ADL Training, Caregiver Training, Home Program Please do not hesitate to contact me at [phone] by phone or if you have questions or concerns regarding this new plan of care! Sincerely, Deepti Nieves, OTR/L
--- NOTE | 2019-04-27 12:21 | HP.PTREVAL ---
Ryan De La Cruz Jr., MD, It has been my pleasure to treat BIANKA GARRISON over the last 8 visits for B chronic knee pain, pes anserine bursitis, B shoulder RTC tendonitis. Please see the progress note below for an update on the physical therapy plan of care! Subjective: Pt. reports having 6/10 pain today, but did recieve injections yesterday. Pt. reports having temporary increase in symptoms in B knees after injection. Objective/Function: ROM: R knee 0-5-95deg., L knee 0-3-110deg. leathery end feel, pain as well. MMT: Pt. has general 4+/5 strength throughout BLEs, except 4/5 hip abd and hip extension. GAIT: Pt. ambulates without AD. Pt. has decreased step length bilateraly with tibial IR bilatearlly and valgus positioning in stance phase. Methodical pattern noted. STAIRS: Pt. decends stairs laterally lowing on RLE only. She is able to ascend with reciprocal pattern, but has increased pain in both movements. Pt. reports increased toelrance to walking and is walking upto 1 mile Plan Plan: I would recommend that she continue with PT in aquatic setting. I want her to continue with BLE strengthening, but add in some cardiovascular fitness to aid with wt. loss. I talked to her about diet and making smaller more frequent meals and focusing on well balanced. Pt. reports understanding. Goals Goal 1:: Pt. to be I with HEP with focus on hip/LE stretching. Goal Time Frame: 4-6 Weeks Goal Progress: Progressing Goal 2:: Pt. to have increased HS and hip flexor lenght by 25% bilaterally. Goal Time Frame: 4-6 Weeks Goal Progress: Progressing Goal 3:: Pt. to walk upto 7 blocks allowing her to walk to her mothers house with 2/10 pain in B knees and lumbar spine. Goal Time Frame: 4-6 Weeks Goal Progress: Progressing Goal 4:: Pt. to be able to sleep throughout the night with 2/10 pain allowing for increased quality of life. Goal Time Frame: 4-6 Weeks Goal Progress: Progressing Goal 5:: Pt. to have full R shoulder ROM without increase in symptoms. Goal Time Frame: 4-6 Weeks Goal Progress: Progressing Anticipated Interventions Patient/Client Instruction: Educate patient on: Condition, Plan of Care, Risk Factors, Benefits of Fitness Program For the Purpose of:: To improve decision making, To facilitate caregiver knowledge, To improve self management, To prevent re-injury, To improve ability to perform tasks related to life management, To improve tolerance to ADL's Therapeutic Exercise to Include: Strength training, Power training, Endurance training, Balance training, Body mechanics, Postural training, Flexibilty training, Gait and locomotor training, Passive ROM, Active ROM, Dynamic Lumbar Stabilization, Fab Exercises For the Purpose of:: To decrease pain, To decrease swelling/inflammation, To increase ROM, To improve nutrient delivery to tissue, To improve performance and independence with ADL's, To improve gait and locomotor functions, To improve health of tissue, To decrease soft tissue restriction, To increase flexibility/ROM Please do not hesitate to contact me at [phone] by phone or if you have questions or concerns regarding this new plan of care! Sincerely, Mesfin Darnell DPT
--- NOTE | 2019-06-28 14:47 | HP.OTDCSUM ---
HP - OT D/C Summary It has been my pleasure to treat TAMMI GARRISON under orders from Ryan De La Cruz Jr., MD, for the diagnosis of B CTS; B shoulder pain for a total of 13 visit(s). Please see the following information for a summary of their discharge status. - Overall Improvement % Improvement: 100 - Objective Objective/Function: Completed reassessment on this date of 06/28/19 and results as follows: ROM: Shoulder: - flexion: R 0-105, L 130. - extentsion: R 0-35, L 0-38. - abduction:R 0-146, L 0-152. - external rotation: R 0-75, L 0-91. Elbow and wrist WFL. Strength: Government Relations Analyst in flexed position: R 26, L 33. Government Relations Analyst in ext. position: R 38, L 30. lateral: R 11, L 11. tripod: R 8, L 9. pincer: R 6, L 8. Sesnation: R 2nd 2.83 ,3rd 2.83 ,4th 2.83 ,5th 2.83 ,thumb 2.83. L 2nd 2.83 ,3rd 2.83 ,4th 2.83 ,5th 2.83 ,thumb 2.83 - Goals Patient Goals: Regain Mobility, Regain Strength, Decrease Pain, Return to Work, Decrease Swelling/Stiffness, Improve Fine Motor Skills, Use Hand/Wrist/Arm Normally Again, Sleep Better, Increase ROM, Be More Independent in ADLS, Resume Former Household Responsibilities (Cooking,Cleaning,Yard, etc.), Resume Hobbies Goal:: Tammi to regain 15-20 lbs to promote strength of BUE needed to complete ADL/IADLs 4/5 trials 80% of the time by d/c. Goal:: Tammi to increase R shoulder ROM by 15 degrees 4/5 trials 80% of the time to promote increased ROM needed to complete ADL/IADLs by d/c. Goal:: Tammi to be mod I to complete pain management techniques with nerve glides and paraffin to promote increased ability to use B hands 4/5 trials 80% of the time by d/c. Goal:: Tammi to be (I) to complete all ADls/IADLs 4/5 trials 80% of the time to return to PLOF by d/c. Goal:: Tammi to be (I) to complete daily HEp to promote increaed use of R shoulder and B hands with decreased syptoms 4/5 trials 80% of the time by d/c. - Plan Plan: Tammi will be discharged on this date. She noted she feels she has made a lot of improvement, is back to PLOF, and is back to knitting without pain. She has been completing her exercises consistently exercsies at home. - D/C Information If there are questions or concerns regarding this patient's occupational therapy, please fell free to call me at [phone]. Thank you for the referral of this patient. Sincerely, Deepti Nieves, OTR/L
== END 2019-07-03 19:00 | disposition home or self-care (01) ==
LOC: PT 11:30
PROVIDERS: Family Provider Family Medicine; PCP Family Medicine; Referring Provider Internal Medicine Rheumatology; Visit Provider Internal Medicine Rheumatology
DX: M54.2 Cervicalgia (principal); M79.671 Pain in right foot; M79.672 Pain in left foot; G56.03 Carpal tunnel syndrome, bilateral upper limbs; R29.898 Other symptoms and signs involving the musculoskeletal system; M75.81 Other shoulder lesions, right shoulder; M75.82 Other shoulder lesions, left shoulder; M75.50 Bursitis of unspecified shoulder; M70.51 Other bursitis of knee, right knee; M70.52 Other bursitis of knee, left knee; M19.071 Primary osteoarthritis, right ankle and foot; M19.072 Primary osteoarthritis, left ankle and foot; M76.891 Other specified enthesopathies of right lower limb, excluding foot; M70.62 Trochanteric bursitis, left hip; M89.9 Disorder of bone, unspecified; M94.9 Disorder of cartilage, unspecified; M25.511 Pain in right shoulder; G89.29 Other chronic pain; M25.512 Pain in left shoulder; M25.561 Pain in right knee; M25.562 Pain in left knee; M25.531 Pain in right wrist; M25.532 Pain in left wrist; M25.551 Pain in right hip; M25.552 Pain in left hip; M79.641 Pain in right hand; M79.642 Pain in left hand; M75.21 Bicipital tendinitis, right shoulder; M75.22 Bicipital tendinitis, left shoulder; Z79.1 Long term (current) use of non-steroidal anti-inflammatories (NSAID); Z85.528 Personal history of other malignant neoplasm of kidney; Z87.39 Personal history of other diseases of the musculoskeletal system and connective tissue; Z86.69 Personal history of other diseases of the nervous system and sense organs; Z22.322 Carrier or suspected carrier of Methicillin resistant Staphylococcus aureus; R53.83 Other fatigue; G47.33 Obstructive sleep apnea (adult) (pediatric); Z99.89 Dependence on other enabling machines and devices; R73.9 Hyperglycemia, unspecified; G56.21 Lesion of ulnar nerve, right upper limb; R20.2 Paresthesia of skin; M79.7 Fibromyalgia; M54.9 Dorsalgia, unspecified
CPT/HCPCS: 97035; 97110; 97113; 97140; 97161; 97166; 97168; 97530

== ENCOUNTER → 2019-08-03 08:45 | Outpatient (CLI) | payer MEDICAID, SELFPAY ==
[2019-06-25 09:41] VITALS: BMI 53.0
[2019-07-31 08:12] VITALS: BMI 53.0
--- NOTE | 2019-08-03 08:56 | US_ITS ---
STUDY: RENAL ULTRASOUND - COMPLETE REASON FOR EXAM: Female, 48 years old. PARTIAL LT NEPHRECTOMY-H/O RCC TECHNIQUE: Ultrasound evaluation of the kidneys was performed with real-time and static henderson-scale imaging. COMPARISON: None. FINDINGS: RIGHT KIDNEY: Normal location of the right kidney, which is normal in size. The right kidney measures 10.4 cm x 5.2 cm x 6.2 cm. There is a normal cortex of the right kidney. The renal cortex measures 2.0 cm. There is no right renal mass or cyst. There are no right renal calculi. There is no right hydronephrosis. DISTAL RIGHT URETER: There is non-visualization of the distal right ureter. There is no demonstrated right ureterovesical junction calculus. There is no demonstrated right ureteral jet. LEFT KIDNEY: Normal location of the left kidney, which is normal in size. The left kidney measures 11 cm x 5.1 cm x 5.7 cm. There is a normal cortex of the left kidney. The renal cortex measures 1.8 cm. There is no left renal mass or cyst. There are no left renal calculi. There is an extra-renal pelvis of the left kidney. There is no distention of the renal calyces. DISTAL LEFT URETER: There is non-visualization of the distal left ureter. There is no demonstrated left ureterovesical junction calculus. There is no demonstrated left ureteral jet. BLADDER: The urinary bladder is empty at time of examination. US/Kidney and Bladder IMPRESSION: No acute abnormality is seen. Left extrarenal pelvis. Electronically Signed: Job Patterson, at 14:29 EST , Service support ,
[2019-08-03 09:56] LABS: Albumin, Serum 3.5 g/dL (3.2-5.0); BUN 21 mg/dL (7-18); BUN/Creat Ratio 24.3 RATIO (10-20); Calcium,Total 8.8 mg/dL (8.5-10.1); Chloride 110 mmol/L (98-107); Creatinine, Serum 0.86 mg/dL (0.55-1.02); EST Glomerular Filtration Rate 74 mL/min (>60); Est Glom Filt Rate - Afr Amer 89 mL/min (>60); Glucose 115 mg/dL (74-106); Phosphorus 2.8 mg/dL (2.5-4.9); Potassium 3.9 mmol/L (3.5-5.1); Sodium Level 139 mmol/L (136-145)
== END ==
PROVIDERS: Family Provider Family Medicine; PCP Family Medicine; Referring Provider Internal Medicine Nephrology; Visit Provider Internal Medicine Nephrology
DX: C64.9 Malignant neoplasm of unspecified kidney, except renal pelvis (principal); E55.9 Vitamin D deficiency, unspecified
CPT/HCPCS: 36415; 76770; 80069; 82306

== ENCOUNTER 2019-08-06 06:30 | Day surgery (SDC) | payer MEDICAID, SELFPAY ==
[2019-07-31 08:12] VITALS: BMI 53.0
[2019-08-06 07:01] VITALS: BP 126/81; PULSE 68; RESP 16; TEMP 36.3; O2SAT 96; BMI 53.6
[2019-08-06] MEDS: Lactated Ringers 1,000 ML 100 ML IV (07:26)
[2019-08-06 07:31] LABS: Bedside Glucose 113 mg/dL (70-110)
--- NOTE | 2019-08-06 07:50 | RAD_ITS ---
STUDY: X-RAY - LUMBAR SPINE REASON FOR EXAM: Female, 48 years old. L1-L4 LEFT LUMBAR FACET INJECTIONS TECHNIQUE: For intraoperative view(s) of the lumbar spine were obtained. COMPARISON: None FINDINGS: Intraoperative imaging provided for left L1-L4 facet joint injections. RAD/Lumbar Spine 2 or 3 Views IMPRESSION: Intraoperative imaging provided for left L1-L4 facet joint injections. Electronically Signed: Job Patterson, at 12:18 EST , Service support ,
[2019-08-06] MEDS: MethylPREDNISolone Acetate 80 MG/ML Vial (08:02)
[2019-08-06] MEDS: Bupivacaine 0.25% 30 ML Vial (08:03)
[2019-08-06 08:09] VITALS: BP 126/81; BP 134/88; PULSE 72; RESP 24; TEMP 36.7; O2SAT 97
[2019-08-06 08:15] VITALS: BP 126/81; BP 131/92; PULSE 70; RESP 16; O2SAT 96
[2019-08-06 08:20] VITALS: BP 126/81; BP 142/95; PULSE 65; RESP 20; O2SAT 95
[2019-08-06 08:26] VITALS: BP 125/88; BP 126/81; PULSE 65; RESP 20; TEMP 36.8; O2SAT 97
[2019-08-06 08:39] VITALS: BP 126/81
--- NOTE | 2019-08-06 08:50 | OP.PCM_ITS ---
Report of Operation Date of Procedure: 08/06/19 Description of Surgical Findings:: PROCEDURE: Left-sided lumbar facet steroid injection L1, L2, L3, L4 PREOPERATIVE DIAGNOSIS: Lumbar spondylosis, lumbar degenerative disc disease, and lumbar facet arthropathy POSTOPERATIVE DIAGNOSIS: Lumbar spondylosis, lumbar degenerative disc disease, and lumbar facet arthropathy ANESTHESIA: MAC COMPLICATIONS: None BLOOD LOSS: Minimal PROCEDURE IN DETAIL: History and physical today was reviewed. Risks and benefits of the procedure were explained. The patient understood, agreed to our procedure, and informed consent was obtained. IV inserted per routine protocol. The patient was taken to the operating room, placed in a prone position with a pillow positioned underneath the abdomen. The left side of his lower back was prepped and draped in a sterile fashion using iodine x3. Under fluoroscopy guidance, on AP view, L3amdoewi L4 vertebral bodies were visualized. Skin and subcutaneous tissues were anesthetized with approximately 5 mL of 1% lidocaine using a 25-gauge regular needle. Under direct visualization with fluoroscopy at approximately 25-degree angle, starting on the left L1, ending on the left L4, passing through the L4-L5 using a 22-gauge 3 1/2-inch spinal needle, the needle was advanced via the skin. The tip of the needle was maneuvered and directed towards the superior and medial gutter of the transverse process at the vicinity of the medial branch. Once the tip of the needle was in contact with the bone, the needle pulled approximately 2 mm off the bone. After negative aspiration of blood with CSF and confirmation of AP as well as oblique view, a total of 8 mL of preservative-free 0.25% Marcaine with 80 mg of Depo- Medrol was injection in divided doses between those 4 levels. The needles were then removed intact. The patient experienced no signs or symptoms intrathecal, intravascular injec tion. The patient experienced no paraesthesia. The procedure was completed without any apparent difficult, any complication. The patient appeared to tolerate well. ASSESSMENT AND PLAN: This is a 48-year-old Female with lumbar spondylosis, lumbar degenerative disc disease, and lumbar facet arthropathy, status post left-sided lumbar facet steroid injection L1-L4. The patient will continue her current medications. The patient will follow in approximately 2 weeks for possible repeat of the procedure if indicated.
== END 2019-08-06 08:50 | disposition home or self-care (01) ==
LOC: SDC 06:32 → AC 06:32
PROVIDERS: PCP Family Medicine; Referring Provider Anesthesiology Pain Medicine; Visit Provider Anesthesiology Pain Medicine
PROC: 3E0T3BZ Introduction of Anesthetic Agent into Peripheral Nerves and Plexi, Percutaneous Approach (ICD-10-PCS; CPT 0216T; principal; 2019-08-06 07:55)
DX: M47.816 Spondylosis without myelopathy or radiculopathy, lumbar region (principal); M51.36 Other intervertebral disc degeneration, lumbar region; M48.061 Spinal stenosis, lumbar region without neurogenic claudication; M51.37 Other intervertebral disc degeneration, lumbosacral region; M46.96 Unspecified inflammatory spondylopathy, lumbar region; M54.17 Radiculopathy, lumbosacral region; E11.9 Type 2 diabetes mellitus without complications; J45.909 Unspecified asthma, uncomplicated; M19.90 Unspecified osteoarthritis, unspecified site; M79.10 Myalgia, unspecified site; K21.9 Gastro-esophageal reflux disease without esophagitis; F31.9 Bipolar disorder, unspecified; F41.9 Anxiety disorder, unspecified; Z79.899 Other long term (current) drug therapy; Z79.84 Long term (current) use of oral hypoglycemic drugs; Z85.528 Personal history of other malignant neoplasm of kidney; Z87.891 Personal history of nicotine dependence
CPT/HCPCS: 01992; 0216T; 0217T; 0218T; 64483; 72100; 82962; J7120

== ENCOUNTER → 2019-08-28 11:39 | Outpatient (CLI) | payer MEDICAID, SELFPAY ==
[2019-08-06 07:01] VITALS: BMI 53.6
[2019-08-28 12:09] LABS: Protein, Urine (Random) 11.1 mg/dL (<11.9); Protein:Creat Ratio 96 mg/g CRE (0-200)
== END ==
PROVIDERS: PCP Family Medicine; Visit Provider Internal Medicine Nephrology
DX: E11.9 Type 2 diabetes mellitus without complications (principal); C64.9 Malignant neoplasm of unspecified kidney, except renal pelvis; E55.9 Vitamin D deficiency, unspecified
CPT/HCPCS: 82570; 84156

== ENCOUNTER → 2020-02-22 09:20 | Outpatient (CLI) | payer MEDICAID, SELFPAY ==
[2020-01-31 10:46] VITALS: BMI 53.6
--- NOTE | 2020-02-22 09:52 | US_ITS ---
STUDY: RENAL ULTRASOUND - COMPLETE REASON FOR EXAM: Female, 49 years old. MALIGNANT NEOPLASM OF THE LEFT KIDNEY IN 2018 TECHNIQUE: Ultrasound evaluation of the kidneys was performed with real-time and static henderson-scale imaging. COMPARISON: Comparison is made with prior examination dated 08/03/2019. FINDINGS: RIGHT KIDNEY: Normal location of the right kidney, which is normal in size. The right kidney measures 10.3 cm x 5.9 cm x 4.5 cm. There is a normal cortex of the right kidney. The renal cortex measures 1.4 cm. There is no right renal mass or cyst. There are no right renal calculi. There is no right hydronephrosis. DISTAL RIGHT URETER: There is non-visualization of the distal right ureter. There is no demonstrated right ureterovesical junction calculus. There is no demonstrated right ureteral jet. LEFT KIDNEY: Normal location of the left kidney, which is normal in size. The left kidney measures 11.6 cm x 5 cm x 5.2 cm. There is a normal cortex of the left kidney. The renal cortex measures 1.4 cm. There is no left renal mass or cyst. There are no left renal calculi. There is no left hydronephrosis. DISTAL LEFT URETER: There is non-visualization of the distal left ureter. There is no demonstrated left ureterovesical junction calculus. There is no demonstrated left ureteral jet. BLADDER: The bladder was not adequately distended for assessment. US/Kidney and Bladder IMPRESSION: Normal ultrasound of the kidneys. Electronically Signed: Job Patterson, at 10:48 EDT , Service support ,
== END ==
PROVIDERS: PCP Family Medicine; Referring Provider Internal Medicine Nephrology; Visit Provider Internal Medicine Nephrology
DX: C64.9 Malignant neoplasm of unspecified kidney, except renal pelvis (principal)
CPT/HCPCS: 76770

== ENCOUNTER → 2020-06-09 11:24 | Outpatient (CLI) | payer MEDICAID, SELFPAY ==
[2020-01-31 10:46] VITALS: BMI 53.6
[2020-06-09 12:43] LABS: Protein, Urine (Random) 12.8 mg/dL (<11.9); Protein:Creat Ratio 106 mg/g CRE (0-200)
[2020-06-09 12:46] LABS: Albumin, Serum 3.4 g/dL (3.2-5.0); BUN 17 mg/dL (7-18); BUN/Creat Ratio 17.9 RATIO (10-20); Calcium,Total 8.8 mg/dL (8.5-10.1); Chloride 107 mmol/L (98-107); Creatinine, Serum 0.95 mg/dL (0.55-1.02); EST Glomerular Filtration Rate 66 mL/min (>60); Est Glom Filt Rate - Afr Amer 80 mL/min (>60); Glucose 124 mg/dL (74-106); Phosphorus 2.7 mg/dL (2.5-4.9); Potassium 3.5 mmol/L (3.5-5.1); Sodium Level 140 mmol/L (136-145)
== END ==
PROVIDERS: PCP Family Medicine; Referring Provider Internal Medicine Nephrology; Visit Provider Internal Medicine Nephrology
DX: C64.9 Malignant neoplasm of unspecified kidney, except renal pelvis (principal); E11.9 Type 2 diabetes mellitus without complications
CPT/HCPCS: 36415; 80069; 82570; 84156

== ENCOUNTER 2021-06-23 13:00 | Outpatient (CLI) | payer BC, MEDICAID, SELFPAY ==
--- NOTE | 2021-06-23 13:03 | US_ITS ---
STUDY: RENAL ULTRASOUND - COMPLETE REASON FOR EXAM: Female, 50 years old. Malignant neoplasm of unspecified kidney . Prior left renal surgery. TECHNIQUE: Ultrasound evaluation of the kidneys was performed with real-time and static henderson-scale imaging. COMPARISON: Comparison is made with prior study dated 02/22/2020. FINDINGS: RIGHT KIDNEY: Normal location of the right kidney, which is normal in size. The right kidney measures 11.1 cm x 6 cm x 5.6 cm. There is a normal cortex of the right kidney. The renal cortex measures 1.6 cm. There is no right renal mass or cyst. There are no right renal calculi. There is no right hydronephrosis. DISTAL RIGHT URETER: There is non-visualization of the distal right ureter. There is no demonstrated right ureterovesical junction calculus. There is a visualized right ureteral jet. LEFT KIDNEY: Normal location of the left kidney, which is normal in size. The left kidney measures 11.7 cm x 4.6 cm x 5.2 cm. There is a normal cortex of the left kidney. The renal cortex measures 1.4 cm. There is no left renal mass or cyst. Irregular contour of the superior pole of the left kidney most likely secondary to prior surgical intervention. There are no left renal calculi. There is no left hydronephrosis. DISTAL LEFT URETER: There is non-visualization of the distal left ureter. There is no demonstrated left ureterovesical junction calculus. There is a visualized left ureteral jet. BLADDER: The distended urinary bladder has a volume of 137 ml. There is a normal wall thickness of the distended urinary bladder. There is no demonstrated mass within the urinary bladder. There are no demonstrated bladder calculi. US/Kidney and Bladder IMPRESSION: Normal ultrasound of the kidneys and urinary bladder. Electronically Signed: Job Patterson MD at 15:54 EST , Service support ,
== END 2021-06-23 23:59 | disposition short-term general hospital (02) ==
PROVIDERS: PCP Family Medicine; Referring Provider Internal Medicine Nephrology; Visit Provider Internal Medicine Nephrology
DX: C64.9 Malignant neoplasm of unspecified kidney, except renal pelvis (principal); E13.29 Other specified diabetes mellitus with other diabetic kidney complication
CPT/HCPCS: 36415; 76770; 80069

== ENCOUNTER 2021-06-23 13:28 | Outpatient (CLI) | payer MEDICAID, SELFPAY ==
[2021-06-23 15:01] LABS: Albumin, Serum 3.2 g/dL (3.2-5.0); BUN 17 mg/dL (7-18); BUN/Creat Ratio 20.1 RATIO (10-20); Calcium,Total 8.7 mg/dL (8.5-10.1); Chloride 100 mmol/L (98-107); Creatinine, Serum 0.84 mg/dL (0.55-1.02); EST Glomerular Filtration Rate 75 mL/min (>60); Est Glom Filt Rate - Afr Amer 91 mL/min (>60); Glucose 126 mg/dL (74-106); Phosphorus 2.6 mg/dL (2.5-4.9); Potassium 3.1 mmol/L (3.5-5.1); Sodium Level 141 mmol/L (136-145)
== END 2021-06-23 23:59 | disposition short-term general hospital (02) ==
PROVIDERS: PCP Family Medicine; Referring Provider Internal Medicine Nephrology; Visit Provider Internal Medicine Nephrology
DX: E13.29 Other specified diabetes mellitus with other diabetic kidney complication (principal)
CPT/HCPCS: 36415; 80069; 82570; 84156

== ENCOUNTER 2021-06-30 14:49 | Outpatient (CLI) | payer BC, MEDICAID, SELFPAY ==
[2021-06-30 16:21] LABS: Protein, Urine (Random) 9.5 mg/dL (<11.9); Protein:Creat Ratio 97 mg/g CRE (0-200)
== END 2021-06-30 23:59 | disposition short-term general hospital (02) ==
LOC: POLAB3 14:50 → LABSPEC 14:52
PROVIDERS: PCP Family Medicine; Visit Provider Internal Medicine Nephrology
DX: E13.29 Other specified diabetes mellitus with other diabetic kidney complication (principal)
CPT/HCPCS: 82570; 84156

== ENCOUNTER 2021-11-06 13:30 | Outpatient (RCR) | payer BC, MEDICARE, MEDICAID, SELFPAY ==
--- NOTE | 2021-10-07 15:29 | HP.PTEVAL_ITS ---
Patient's Visit Information BIANKA GARRISON is a 51 year old F referred to Physical Therapy by MICAELA Cummings with a diagnosis of DEGERNEARTIVE OF LUMBAR OR LUMBOSACRAL DISC ,CHRONIC [place] BACK PAIN. Date of Evaluation: 10/07/21 Physical Therapist: Rex Doyle, PT, Cert MDT, OCS - Visit Plan Frequency: 2x /Week Duration: 4 Weeks Plan: PT INTERVETIONS WITH AQUATIC THERAPY FOR DLS ,POSTURAL EX'S,LE FLEXABLITY/STRENGTHENING AND ACTIVITY MODIFICATION/POSTURE TRAINING - Subjective This 51 y/o female presents to physical therapy with back pain. Patient has lumbar pain for ~ 2002 with gradually worsen . Pain is lumbar symmetrical o ccasional right lateral hip. Patient see Dr recommended PT. No Meds . Patient has no recent diagnostics. Patient has h/o knee pain which patient has had prior PT . Patient plans to see DR for knee pain orthopedics. Aggravating factors walking, standing < 10min ,bending is difficulty and unable to left along with knee pain. Alleviating factors resting and sitting. Denies paresthesia/tingling- . Coughing/sneezing +. Bowel/bladder -. Patient currently is off working because back pain since May. Patient symptoms affects sleeping . Takes sleeping medication at night. Patient pain affects ability to RTW and housework tasks/ADLS'. SOCIAL: single. VOCATION: [employer] - Pain Bilateral Back Pain Intensity (Out of 10): 9 Pain Intensity Range: 10 - Objective POSTURE: mild forward posture hips knees /flexed ,knee valgus. GAIT: reciprocal pattern antalgic gait slow ambrosio. NEURO: denies paresthesia/tingling ,reflexes L3-4,L4-5 ,L5-S1 1/3. MMT: (peak force) -quads 13.4,hamstrings 12.3, hip flexors 2 ,ankle WFL. FLEXABLITY: hamstrings mod tight. LUMBAR ROM: flexion mod loss ,extension severe ,side glides mod loss - Special Tests L/S Slump test left side: Negative L/S Slump test right side: Negative L/S Left Straight Leg Raise: Negative L/S Right Straight Leg Raise: Negative - Balance/Special Test Scores Oswestry Low Back Score: 34 - Goals Goal 1:: I with Aquatic therapy for lumbar spine Goal Time Frame: 4-6 Weeks Goal 2:: Patient to improve posture for ADLS Goal Time Frame: 4-6 Weeks Goal 3:: Patient to demonstrate 50% improve function with less pain Goal Time Frame: 4-6 Weeks Goal 4:: Patient to improve lumbar ROM for function of recovery to lift for job demands Goal Time Frame: 4-6 Weeks Goal 5:: Patient to improve back oswestry score by 5 points to improve QOL Goal Time Frame: 4-6 Weeks Goal 6:: Patient to improve strength quads/hams /hip by 5 peak force to improve function - Rehabilitation Potential Physical Therapy Diagnosis: This patient has symmetrical low back pain with weakness in legs , with decrease ROM ,strength impairs walking and function with RTW and housework thus benefit from skilled PT Rehabilitation Potential: Good - Anticipated Interventions Patient/Client Instruction: Educate patient on: Condition, Plan of Care For the Purpose of:: To decrease pain, To increase ROM, To increase oxygenation perfusion, To improve ability to perform ADL's, To increase tolerance to activity/condition/position, To improve ability of physical actions for home/community/work/leisure, To improve health of tissue, To decrease soft tissue restriction, To improve endurance, To improve balance, To reduce risk of recurrence, To improve health and function, To prevent re-injury, To improve suleman erance to ADL's Therapeutic Exercise to Include: Strength training, Endurance training, Body mechanics, Postural training, Flexibilty training, In an aquatic setting, Active ROM, Dynamic Lumbar Stabilization Comment: BLE For the Purpose of:: To decrease pain, To increase ROM, To improve muscle performance and motor function, To improve ability to perform ADL's, To improve ability of physical actions for home/community/work/leisure, To improve gait and locomotor functions, To improve health of tissue, To decrease soft tissue restriction, To increase flexibility/ROM, To improve endurance, To reduce risk of recurrence, To improve health and function, To prevent re-injury, To improve tolerance to ADL's Thank you for the opportunity to evaluate your patient. For Medicare and Medicare HMO plans, please review the plan of care and approve it. It will need to be FAXED BACK to us at [phone] for Medicare purposes. For Medicare only, by signing this I certify the plan of care. Please let me know if there are questions or concerns regarding this plan of care. Physician Signature:_ Date:
--- NOTE | 2022-03-24 08:57 | HP.PTDCSUM ---
It has been my pleasure to treat BIANKA GARRISON referred by MICAELA Cummings, with the diagnosis of DEGERNEARTIVE OF LUMBAR OR LUMBOSACRAL DISC ,CHRONIC [place] BACK PAIN for a total of 3 visit(s). Discharge Date: Please see the following information for a summary of their discharge status. Subjective: Patient had Covid thus unbable to do therapy Bilateral Back Pain Intensity (Out of 10): 7 RLE Pain Intensity (Out of 10): 7 LLE Pain Intensity (Out of 10): 7 Objective/Function: POSTURE: mild forward posture. GAIT: reciprocal gait slow ambrosio. MMT: quads/hams 4-/5,hip flexion 3+/5 ,ankle 4/5. LUMBAR ROM: flexion extension mod /severe loss, extension mod/severe . Goal 1:: I with Aquatic therapy for lumbar spine Goal 2:: Patient to improve posture for ADLS Goal 3:: Patient to demonstrate 50% improve function with less pain Goal 4:: Patient to improve lumbar ROM for function of recovery to lift for job demands Goal 5:: Patient to improve back oswestry score by 5 points to improve QOL Goal 6:: Patient to improve strength quads/hams /hip by 5 peak force to improve function Plan: d/c did Not return PT. PT INTERVETIONS WITH AQUATIC THERAPY FOR DLS ,POSTURAL EX'S,LE FLEXABLITY/STRENGTHENING AND ACTIVITY MODIFICATION/POSTURE TRAINING If there are questions or concerns regarding this patient's physical therapy, please feel free to call me at [phone]. Thank you for the referral of this patient. Sincerely, Rex Doyle, PT, Cert MDT, OCS Balance/Gait/Functional tests - Balance/Special Test Scores Oswestry Low Back Score: 34
== END 2021-11-06 19:00 | disposition home or self-care (01) ==
LOC: PT 13:30
PROVIDERS: PCP Family Medicine; Referring Provider Nurse Practitioner Family; Visit Provider Nurse Practitioner Family
DX: M51.37 Other intervertebral disc degeneration, lumbosacral region (principal); G89.29 Other chronic pain
CPT/HCPCS: 97113; 97162; 97530

== ENCOUNTER 2022-03-25 09:47 | Outpatient (RCR) | payer BC, MEDICARE, MEDICAID, SELFPAY | END 2022-03-25 09:48 | disposition home or self-care (01) | LOC: PT 09:47 | PROVIDERS: PCP Family Medicine; Referring Provider Physician Assistant; Visit Provider Physician Assistant | DX: R69 Illness, unspecified (principal) ==

== ENCOUNTER 2024-01-29 11:38 | Emergency (ER) | payer MEDICARE, SELFPAY ==
[2024-01-29 11:38] VITALS: BP 125/85; PULSE 67; RESP 16; TEMP 36.4; O2SAT 100; BMI 51.9
[2024-01-29 11:40] VITALS: BP 133/77; PULSE 82; RESP 18; TEMP 36.9; O2SAT 100
--- NOTE | 2024-01-29 12:13 | CT_ITS ---
EXAM: CT ABDOMEN AND PELVIS WITHOUT INTRAVENOUS CONTRAST CLINICAL INDICATION: Abdominal pain. She had weight loss surgery this past Tuesday. Surgical sites are leaking. TECHNIQUE: Helically acquired images were obtained of the abdomen and pelvis without intravenous contrast. This CT exam was performed using one or more of the following dose reduction techniques: automated exposure control, adjustment of the mA and/or kV according to patient size, and/or use of iterative reconstruction technique. RADIATION DOSE: CTDIvol = 23.48 mGy, DLP = 1390.44 mGy-cm COMPARISON: CT abdomen and pelvis with and without contrast 01/22/2019. FINDINGS: LOWER THORAX: Unremarkable. Lung bases are clear. No cardiomegaly. No significant pericardial effusion. ABDOMEN: LIVER: Unremarkable. Homogeneous. GALLBLADDER AND BILE DUCTS: Surgical clips in the gallbladder fossa area from cholecystectomy. No intra- or extrahepatic biliary ductal dilation. PANCREAS: Unremarkable. No focal cystic mass. SPLEEN: Unremarkable. Normal size without focal cystic or solid mass. ADRENALS: Unremarkable. No nodules. KIDNEYS AND URETERS: Postoperative changes in the posterior left renal parenchyma. No stones or hydronephrosis. Normal renal size and position. STOMACH AND BOWEL: Surgical sutures in the stomach from gastric bypass surgery. There is no free fluid to suspect leaking of the gastric bypass surgery site. No stomach or bowel distention. No focal inflammatory change. PELVIS: APPENDIX: Normal. BLADDER: Unremarkable. REPRODUCTIVE: Unremarkable as visualized. Normal uterus and bilateral adnexal regions. ABDOMEN and PELVIS: INTRAPERITONEAL SPACE: See above. BONES/JOINTS: Pronounced L2-L3 degenerative disc space height narrowing with degenerative vacuum phenomenon. Minimal degenerative retrolisthesis of L2 on L3. No suspicious lytic or blastic abnormality. SOFT TISSUES: Unremarkable. No discrete abdominal or pelvic wall hernia. VASCULATURE: Unremarkable. Abdominal aorta is non-dilated. LYMPH NODES: Unremarkable. No enlarged lymph nodes. CT/Abdomen/Pelvis without Cont IMPRESSION: 1. Surgical sutures in the stomach from recent gastric bypass surgery. No suspicious free air or free fluid to suspect leak around the gastric bypass surgery sites. 2. No suspicious acute abnormality in the abdomen and pelvis. 3. Postoperative changes in the left posterior renal parenchyma. 4. No significant interval change. Electronically Signed: Nicko Hyman MD at 14:37 EDT ,
--- NOTE | 2024-01-29 12:15 | EX.ED.DYSGE1 ---
HPI <MICAELA Orosco - Last Filed: 01/29/24 15:28> History of Present Illness Chief Complaint: Wound Check Narrative Narrative: Patient is a 53-year-old female with history of morbid obesity, type 2 diabetes, hyperlipidemia, tobacco use, who presents to the Emergency Department for wound check. Patient states on January 23 she had a gastric bypass surgery with Dr. Mcqueen. Patient states 2 days ago, she started having some drainage from a incision site just below her umbilicus. Patient states that she has been holding her heparin for the last day and a half. She did call her surgeon who told her to go to the emergency department [facility], however secondary to her feeling lightheaded, she ended up coming here. She states that her pain is under control. She denies any fever chills nausea or vomiting. PFSH <MICAELA Orosco - Last Filed: 01/29/24 15:28> [facility] Medical History Abdominal pain Abdominal panniculus, symptomatic Abnormal biopsy of kidney Achilles tendinitis Anemia Arthritis Asthma Asymptomatic varicose veins Back problem Bone fracture Breast tumor Cancer of kidney Carpal tunnel syndrome COPD (chronic obstructive pulmonary disease) De Quervain's disease (tenosynovitis) Depressed Diabetes Dysmenorrhea Erythema intertrigo Excessive weight loss Frequent headaches Gallstones GERD (gastroesophageal reflux disease) Hidradenitis suppurativa of right axilla High cholesterol High triglycerides History of neuropathy History of pneumonia Hives HTN (hypertension) IBS (irritable bowel syndrome) Insomnia Left kidney mass Localized osteoarthritis of knees, bilateral Nail disorder Panic attack Polycystic ovary Seasonal allergies Sleep apnea UTI (urinary tract infection) Home Medications ?Medication ?Instructions ?Recorded ?Last Taken ?Type albuterol sulfate 90 mcg/actuation 1 - 2 puff inhalation PRN PRN Sob 10/11/17 Unknown History aerosol inhaler &/Or Wheezing conj estrogen-medroxyprogesterone 1 ea PO DAILY Hormone replacement 01/02/18 01/21/18 09:30 History 0.45 mg-1.5 mg tablet lamotrigine 150 mg tablet 150 mg PO BID 06/22/19 06/25/19 07:30 History Kenalog 40 mg/mL suspension for 160 mg (4 mL) intra-articular ONCE 05/06/20 Unknown Clinic injection (triamcinolone acetonide) #4 mL cholecalciferol (vitamin D3) 1,250 ea PO 08/12/20 Unknown History mcg (50,000 unit) capsule furosemide 40 mg tablet 40 mg PO DAILY 08/12/20 Unknown History losartan 100 ea PO 08/12/20 Unknown History mg-hydrochlorothiazide 25 mg tablet lurasidone 120 mg tablet ea PO 08/12/20 Unknown History prazosin 2 mg capsule cap PO 08/12/20 Unknown History buspirone 5 mg tablet 15 mg PO TID 04/24/21 Unknown History tizanidine 4 mg tablet 4 mg PO DIRECTED PRN 04/24/21 Unknown History venlafaxine 37.5 mg 37.5 mg PO DAILY 04/24/21 Unknown History capsule,extended release 24 hr venlafaxine 75 mg capsule,extended 75 mg PO DIRECTED 04/24/21 Unknown History release 24 hr trazodone 50 mg tablet See Rx Instructions PO QHS sleep 10/08/21 Unknown History meloxicam 15 mg tablet mg PO 04/26/23 Unknown History metformin 500 mg tablet,extended mg PO 04/26/23 Unknown History release 24 hr potassium chloride 10 mEq meq PO 04/26/23 Unknown History tablet,extended release Allergy/AdvReac Type Severity Reaction Status Date / Time Fish Containing Products Allergy Shortness Verified 01/29/24 11:40 of breath morphine Allergy Shortness Verified 01/29/24 11:40 of breath lisinopril AdvReac cough Verified 01/29/24 11:40 Family History Father , FROM SEPSIS AT AGE 58 Asthma Arthritis Diabetes Heart disease Sepsis COPD (chronic obstructive pulmonary disease) Mother Breast cancer Diabetes Ovarian cancer Son Asthma Aunt Breast cancer Grandmother Ovarian cancer OVARIAN CANCER WITH METS AT AGE 56 Grandfather Diabetes Grandmother Diabetes Surgical History Cancer of kidney H/O partial nephrectomy History of biopsy History of delivery History of cholecystectomy History of lumpectomy of right breast History of tubal ligation History of ventral hernia repair Right axillary hidradenitis S/P panniculectomy Social History adopted: No household members: children housing: apartment number of children: 2 current occupational status: unemployed current occupational exposures/hazards: No history of recent travel: No Smoking Status: Former smoker Tobacco: How many years used: 26 how long ago did patient quit smokin second hand exposure: Yes alcohol intake: never substance use type: does not use what type of physical activity do you participate in: walking frequency: daily seatbelt use: always do you feel safe at home: Yes additional social history: SUN EXPOSURE: OCCASIONALLY DOES NOT USE ASPIRIN DOES NOT USE IBUPROFEN ROS <MICAELA Orosco - Last Filed: 01/29/24 15:28> ROS ED ROS Narrative Constitutional: Negative for fever, chills, weight loss, weakness Eyes: Negative for vision loss, vision change, double vision ENT: Negative for any sore throat, ear pain, congestion Cardiovascular: Negative for any chest pain, tightness, palpitations Respiratory: Negative for any cough, sputum production, hemoptysis, dyspnea, dyspnea on exertion, orthopnea Gastrointestinal: Negative for any nausea, vomiting, diarrhea, constipation, blood in stool, blood in vomit. Poss for generalized abdominal pain. : Negative for any urinary frequency, dysuria, retention, blood in urine Muscle skeletal: Negative for any neck pain, back pain Neurological: Negative for any headache, syncope, dizziness Skin: Negative for any rashes, itching, abrasions, lacerations. Multiple incision sites, clear red drainage Psychiatric: Negative for any depression, anxiety, stress, suicidal ideation, homicidal ideation Hematologic: Negative for any excessive bruising, easy bleeding EXAM <MICAELA Orosco - Last Filed: 01/29/24 15:28> Physical Exam Narrative Exam Narrative: Vital signs reviewed. HEET: Head normocephalic atraumatic, TMs clear bilaterally. Posterior pharynx is clear, moist mucous membranes. Nares clear bilaterally. Neck: Supple with no lymphadenopathy or tenderness. No signs of meningismus. Cardiac: Regular rate and rhythm no murmurs gallops or rubs, equal peripheral pulses bilaterally. Respiratory: Lungs clear to auscultation bilaterally. No chest tenderness. Abdomen: Soft. No abdominal bruit or pulsatile masses. No hepatosplenomegaly. Patient's abdomen has multiple areas of incision sites, they all look well-appearing, no evidence of any erythema, signs of cellulitis. There is some clear red fluid that is thin coming out of the incision site just below the umbilicus. This looks more of a seromic fluid. There is no evidence of any gross drainage, foul-smelling odor. Extremities: No peripheral edema, no signs of gross trauma or deformity. Active full range of motion of all extremities. Neuro: Cranial nerves II through XII intact, no focal neurological deficits. Skin: Clean dry and intact with no rash, purpura, petechiae, vesicles or pustules. Backs/flank: No CVA tenderness, no midline spinal tenderness, no deformity. Psych: Normal mood and affect. No SI, HI or acute psychosis. Const Vital Signs: 01/29/24 11:38 01/29/24 11:40 01/29/24 13:00 Temperature 97.5 F L 98.5 F 97.9 F Temperature Source Temporal Oral Tympanic Pulse Rate 67 82 83 Respiratory Rate 16 18 16 Blood Pressure 125/85 H 133/77 H 131/73 H Blood Pressure Mean 98 95 92 Pulse Ox 100 100 98 Oxygen Delivery Method Room Air Room Air 01/29/24 13:47 01/29/24 15:00 01/29/24 15:00 Temperature 97.8 F 97.8 F Temperature Source Oral Oral Pulse Rate 72 79 79 Respiratory Rate 18 18 18 Blood Pressure 143/83 H 125/74 H 125/74 H Blood Pressure Mean 103 91 91 Pulse Ox 98 99 99 Oxygen Delivery Method Room Air Room Air Room Air Positive well nourished and well developed General Appearance ED: well developed <Dr. Nirmal Durbin, DO - Last Filed: 01/29/24 15:37> Physical Exam Const Vital Signs: 01/29/24 11:38 01/29/24 11:40 01/29/24 13:00 Temperature 97.5 F L 98.5 F 97.9 F Temperature Source Temporal Oral Tympanic Pulse Rate 67 82 83 Respiratory Rate 16 18 16 Blood Pressure 125/85 H 133/77 H 131/73 H Blood Pressure Mean 98 95 92 Pulse Ox 100 100 98 Oxygen Delivery Method Room Air Room Air 01/29/24 13:47 01/29/24 15:00 01/29/24 15:00 Temperature 97.8 F 97.8 F Temperature Source Oral Oral Pulse Rate 72 79 79 Respiratory Rate 18 18 18 Blood Pressure 143/83 H 125/74 H 125/74 H Blood Pressure Mean 103 91 91 Pulse Ox 98 99 99 Oxygen Delivery Method Room Air Room Air Room Air [facility] <MICAELA Orosco - Last Filed: 01/29/24 15:28> [facility] Lab Data Labs: Laboratory Results - last 24 hr 01/29/24 12:43 WBC 9.1 RBC 3.78 L Hgb 10.4 L Hct 31.1 L MCV 82.3 MCH 27.5 MCHC 33.4 RDW Std Deviation 41.3 RDW Coeff of Santos 14.3 Plt Count 315 MPV 11.0 Immature Gran % (Auto) 0.700 Neut % (Auto) 56.5 Lymph % (Auto) 25.1 [place] % (Auto) 14.9 H Eos % (Auto) 2.5 Baso % (Auto) 0.3 Absolute Neuts (auto) 5.1 Absolute Lymphs (auto) 2.28 Nucleated RBC % 0 PT 14.9 INR 1.2 Sodium 141 Potassium 3.5 Chloride 105 Carbon Dioxide 27.0 Anion Gap 9 BUN 7 Creatinine 0.51 L Estim Creat Clear Calc 162.42 Est GFR (MDRD) Af Amer 161 Est GFR (MDRD) Non-Af 133 BUN/Creatinine Ratio 13.7 Glucose 101 Calcium 8.6 Radiography Diagnostic Testing: Clinical Impression(s) from Imaging Studies Abdomen/Pelvis CT 01/29/24 12:13 IMPRESSION: 1. Surgical sutures in the stomach from recent gastric bypass surgery. No suspicious free air or free fluid to suspect leak around the gastric bypass surgery sites. 2. No suspicious acute abnormality in the abdomen and pelvis. 3. Postoperative changes in the left posterior renal parenchyma. 4. No significant interval change. Electronically Signed: Nicko Hyman MD at 14:37 EDT , Treatment and Re-Evaluation :: Differential diagnosis includes however is not limited to: Postoperative cellulitis, abscess formation, seroma, Patient appears to be in no obvious distress vital signs are stable, patient presents to the emergency department with complaints of drainage from an incision site, gastric bypass surgery 6 days ago. Patient appears nontoxic. Physical examination is consistent with more of a seroma. There is no evidence of any infection or gross drainage. Patient's laboratory values show a normal CBC, stable anemia. At 10. 4. Patient's chemistries are unremarkable, PT/INR is within normal limits. Patient did receive a CT scan of the abdomen pelvis, this showed surgical sutures in the stomach from recent gastric bypass surgery, no suspicious free air or free fluid to suspect leak around the gastric bypass surgical sites. No suspicious acute abnormality in the abdomen pelvis. I did reach out to the surgery on-call, they also believe it is a seroma. They instructed the patient to continue taking the heparin injections, and to follow-up in 2 days. Happy with the plan of care, patient is stable for discharge. <Dr. Nirmal Durbin, DO - Last Filed: 01/29/24 15:37> [facility] Narrative Medical decision making narrative: I have personally performed a face to face assessment of the patient and have reviewed the CURT Note. I performed a substantive portion of the visit including all aspects of the following. My alvarado findings include: History: Patient presents with wound drainage from her abdominal incision for the past 3 days. Patient states that headache has gradually gotten worse. Patient describes it as a watery drainage. Patient states it is mainly coming from the incision above her umbilicus. Patient states it is better when she lays flat and applies ice to the area. Patient denies any fevers or chills. Patient denies any purulent discharge or drainage. Patient denies any redness or swelling around the incisions. Exam: Vital signs are stable. Patient is afebrile. Patient is in no acute distress. Oral mucosa is pink and moist. Neck is supple. Trachea is midline. There is no JVD. Heart was regular rate and rhythm. Lungs are clear and equal bilaterally. Abdomen is soft. Bowel sounds are normal. There is mild incisional tenderness. There is no erythema or warmth around the incisions. There is some serous drainage coming from the incision above the umbilicus. There is no purulent drainage noted. Cranial nerves II through XII are intact. There are no focal motor or sensory deficits noted. Medical Decision Making: Differential diagnosis includes seroma, infection, abscess, and hematoma. CBC will be obtained to assess for leukocytosis and anemia. PT with INR will be obtained to assess for coagulopathy. Basic metabolic profile will be obtained to assess for electrolyte abnormality and renal function. CT scan of the abdomen pelvis will be obtained to assess for abdominal abscess and hematoma. CBC was reviewed. There is a mild anemia with a hemoglobin of 10.4 and hematocrit 31.1. PT with INR was reviewed. Pro time was 14.9 and INR is 1.2. Basic metabolic profile was reviewed and was within normal limits. CT scan of the abdomen pelvis was obtained. There is no acute intra-abdominal abnormality noted. There is no free air or free fluid. This was interpreted by the radiologist was also independently reviewed by myself. Patient was advised of her findings. Patient was instructed to continue using ice to the area. Patient was instructed to follow-up with her surgeon in 5 to 7 days. Patient was instructed return if worse in any way. Patient understood and was agreeable with the plan. All questions were answered. Lab Data Labs: Laboratory Results - last 24 hr 01/29/24 12:43 WBC 9.1 RBC 3.78 L Hgb 10.4 L Hct 31.1 L MCV 82.3 MCH 27.5 MCHC 33.4 RDW Std Deviation 41.3 RDW Coeff of Santos 14.3 Plt Count 315 MPV 11.0 Immature Gran % (Auto) 0.700 Neut % (Auto) 56.5 Lymph % (Auto) 25.1 [place] % (Auto) 14.9 H Eos % (Auto) 2.5 Baso % (Auto) 0.3 Absolute Neuts (auto) 5.1 Absolute Lymphs (auto) 2.28 Nucleated RBC % 0 PT 14.9 INR 1.2 Sodium 141 Potassium 3.5 Chloride 105 Carbon Dioxide 27.0 Anion Gap 9 BUN 7 Creatinine 0.51 L Estim Creat Clear Calc 162.42 Est GFR (MDRD) Af Amer 161 Est GFR (MDRD) Non-Af 133 BUN/Creatinine Ratio 13.7 Glucose 101 Calcium 8.6 Radiography Diagnostic Testing: Clinical Impression(s) from Imaging Studies Abdomen/Pelvis CT 01/29/24 12:13 IMPRESSION: 1. Surgical sutures in the stomach from recent gastric bypass surgery. No suspicious free air or free fluid to suspect leak around the gastric bypass surgery sites. 2. No suspicious acute abnormality in the abdomen and pelvis. 3. Postoperative changes in the left posterior renal parenchyma. 4. No significant interval change. Electronically Signed: Nicko Hyman MD at 14:37 EDT , Discharge Plan Triage Chief Complaint: Wound Check ED Midlevel Provider: Ronnie Paz ED Provider: Nirmal Durbin Dx/Rx/DC Orders Clinical Impression: Acute postoperative pain, Seroma after procedure Instructions: ED Seroma, Postsurgical Prescriptions: No Action triamcinolone acetonide [Kenalog] 40 mg/mL suspension 160 mg INTRAARTIC ONCE Qty: 4 0RF prazosin 2 mg capsule PO lurasidone 120 mg tablet PO Patient Comments: TAKE 1 TABLET BY MOUTH EVERY DAY WITH FOOD (AT LEAST 350 CALORIES) furosemide 40 mg tablet 40 mg PO DAILY Patient Comments: TAKE 1 TABLET BY MOUTH EVERY DAY losartan-hydrochlorothiazide 100-25 mg tablet PO Patient Comments: TAKE 1 TABLET BY MOUTH EVERY DAY cholecalciferol (vitamin D3) 1,250 mcg (50,000 unit) capsule PO Patient Comments: TAKE 1 CAPSULE BY MOUTH ONE TIME A WEEK. tizanidine 4 mg tablet 4 mg PO DIRECTED PRN venlafaxine 37.5 mg capsule,extended release 24hr 37.5 mg PO DAILY venlafaxine 75 mg capsule,extended release 24hr 75 mg PO DIRECTED meloxicam 15 mg tablet PO Patient Comments: TAKE 1 TABLET BY MOUTH ONCE DAILY. TAKE WITH FOOD. potassium chloride 10 mEq tablet extended release PO Patient Comments: TAKE 2 TABLETS BY MOUTH DAILY WITH BREAKFAST. metformin 500 mg tablet extended release 24 hr PO Patient Comments: TAKE 1 TABLET BY MOUTH EVERY DAY WITH BREAKFAST trazodone 50 mg tablet See Rx Instructions PO QHS Rx Instructions: 300mg PO at bedtime; albuterol sulfate 18 GM HFA aerosol inhaler 1 - 2 puff INHALATION PRN PRN (Reason: Sob &/Or Wheezing) Patient Comments: Inhale 2 Puffs as instructed every 4 hours as needed for Wheezing/Shortness of Breath. conj estrog-medroxyprogest savanna 1 EACH tablet 1 ea PO DAILY Patient Comments: Hormone replacement lamotrigine 150 MG tablet 150 mg PO BID buspirone 5 mg tablet 15 mg PO TID Primary Care Provider: Malachi Bello Referrals: Malachi Bello MD [Primary Care Provider] - Activity Restrictions/Additional Instructions: No signs or symptoms of infection. Follow-up with your surgeon in 2 to 3 days. Print Language: Kyrgyz Disposition Disposition: Home, Self Care
[2024-01-29] MEDS: 0.9% Normal Saline (1000mL) 1,000 ML 999 ML IV (12:41)
[2024-01-29 12:49] LABS: Absolute Lymphocyte Count 2.28 X10^3/uL (0.83-4.51); Absolute Neutrophil Count 5.1 X10^3/uL (2.0-7.7); Basophil# 0.03 X10^3/uL; Basophil% 0.3 % (0-1); Eosinophil# 0.23 X10^3/uL; Eosinophils% 2.5 % (0-5); Hematocrit 31.1 % (37-47); Hemoglobin 10.4 g/dL (12.0-15.0); Lymphocyte # 2.28 X10^3/ul (0.83-4.51); Lymphocyte % 25.1 % (19-41); Mean Corp Hgb Conc 33.4 g/dL (32-36); Mean Corpuscular Hgb 27.5 pg (27.0-32.0); Mean Corpuscular Volume 82.3 fL (81-99); Monocyte# 1.35 X10^3/uL; Monocyte% 14.9 % (0-10); NRBC Flagged by Analyzer 0 % (0-5); Neutrophil # 5.12 X10^3/uL (2.7-7.7); Neutrophil % 56.5 % (47-70); Platelet Count 315 K/mm3 (150-450); RBC Distribution Width CV 14.3 % (11.6-14.6); RBC Distribution Width SD 41.3 fl (35.1-43.9); Red Blood Count 3.78 M/mm3 (4.2-5.4); White Blood Count 9.1 K/mm3 (4.4-11.0)
[2024-01-29 13:00] VITALS: BP 131/73; PULSE 83; RESP 16; TEMP 36.6; O2SAT 98
[2024-01-29 13:06] LABS: Anion Gap 9 (5-15); BUN 7 mg/dL (7-18); BUN/Creat Ratio 13.7 RATIO (10-20); Calcium,Total 8.6 mg/dL (8.5-10.1); Chloride 105 mmol/L (98-107); Creatinine, Serum 0.51 mg/dL (0.55-1.02); EST Glomerular Filtration Rate 133 mL/min (>60); Est Glom Filt Rate - Afr Amer 161 mL/min (>60); Estimated Creatinine Clearance 162.42 ml/min; Glucose 101 mg/dL (74-106); Potassium 3.5 mmol/L (3.5-5.1); Sodium Level 141 mmol/L (136-145)
[2024-01-29 13:47] VITALS: BP 143/83; PULSE 72; RESP 18; O2SAT 98
[2024-01-29 14:12] LABS: International Normalized Ratio 1.2; Prothrombin Time (Protime)PT. 14.9 SECONDS (11.7-14.9)
[2024-01-29] MEDS: oxyCODONE 5 MG Tablet PO (14:44)
[2024-01-29 15:00] VITALS: BP 125/74; PULSE 79; RESP 18; TEMP 36.6; O2SAT 99
[2024-01-29 15:43] VITALS: BP 125/74; PULSE 79; RESP 18; TEMP 36.6; O2SAT 99
== END 2024-01-29 15:46 | disposition home or self-care (01) ==
PROVIDERS: Nurse Practitioner; Emergency Provider Emergency Medicine; PCP Family Medicine; Visit Provider Emergency Medicine
DX: L76.34 Postprocedural seroma of skin and subcutaneous tissue following other procedure (principal); J44.9 Chronic obstructive pulmonary disease, unspecified; E66.01 Morbid (severe) obesity due to excess calories; E11.40 Type 2 diabetes mellitus with diabetic neuropathy, unspecified; G89.18 Other acute postprocedural pain; I10 Essential (primary) hypertension; Z87.891 Personal history of nicotine dependence; E78.00 Pure hypercholesterolemia, unspecified; Z98.84 Bariatric surgery status; K21.9 Gastro-esophageal reflux disease without esophagitis; Z79.01 Long term (current) use of anticoagulants
CPT/HCPCS: 74176; 80048; 85025; 85610; 96360; 99283; J7030